=== PATIENT | female | born 1990 | race Hispanic/Latino ===

== ENCOUNTER 2018-01-09 12:59 | Emergency (ER) | payer SELFPAY ==
--- NOTE | 2018-01-09 13:43 | ER ---
Nurse's Notes [facility] Name: Jorge Stewart Age: 27 yrs Sex: Female : 1990 Arrival Date: 01/09/2018 Time: 13:01 Bed 24 Private MD: None, None Diagnosis: Candidiasis;Candidiasis of vulva and vagina Presentation: 01/09 13:23 Presenting complaint: Patient states: "vaginal rash" started Sunday. Pt has been sv taking monistat with no relief. Transition of care: patient was not received from another setting of care. Onset of symptoms was January 05, 2018. Care prior to arrival: None. 13:23 Method Of Arrival: Ambulatory sv 13:23 Acuity: LISA 4 sv 13:56 Risk Assessment: Do you want to hurt yourself or someone else? Patient reports no tl3 desire to harm self or others. Initial Sepsis Screen: Does the patient meet any 2 criteria? No. Patient's initial sepsis screen is negative. Does the patient have a suspected source of infection? No. Patient's initial sepsis screen is negative. 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 - Social history:: Smoking status: Patient/guardian denies using tobacco. - Ebola Screening: : No symptoms or risks identified at this time. - Family history:: not pertinent. - Hospitalizations: : No recent hospitalization is reported. - History obtained from: son. Patient is Pashto Speaking Only. Screenin:55 Abuse screen: Denies threats or abuse. Nutritional screening: No deficits noted. tl3 Tuberculosis screening: Fall Risk None identified. Assessment: 13:55 General: Appears in no apparent distress. comfortable, slender, well groomed, well tl3 developed, well nourished, Behavior is calm, cooperative, appropriate for age. Pain: Denies pain. Neuro: Level of Consciousness is awake, alert, obeys commands, Oriented to person, place, time, situation, Appropriate for age. Cardiovascular: Patient's skin is warm and dry. Respiratory: Airway is patent Respiratory effort is even, unlabored, Respiratory pattern is regular, symmetrical. GI: No signs and/or symptoms were reported involving the gastrointestinal system. : Reports discharge, vaginal itching. EENT: No signs and/or symptoms were reported regarding the EENT system. Derm: No signs and/or symptoms reported regarding the dermatologic system. Musculoskeletal: No signs and/or symptoms reported regarding the musculoskeletal system. Vital Signs: 13:24 BP 115 / 77; Pulse 82; Resp 18; Pulse Ox 100% ; Weight 61.69 kg; Height 5 ft. 4 in. sv (162.56 cm); Pain 0/10; 13:24 Body Mass Index 23.34 (61.69 kg, 162.56 cm) sv ED Course: 13:01 Patient arrived in ED. mr 13:02 None, None is Private Physician. mr 13:24 Triage completed. sv 13:25 Arm band placed on right wrist. sv 13:27 Ploy Kurtz FNP [facility]. kav 13:27 Gómez Cruz MD is Attending Physician. kav 13:51 Dali Garcia, DAMON is Primary Nurse. tl3 13:55 Patient has correct armband on for positive identification. tl3 13:55 No provider procedures requiring assistance completed. Patient did not have IV access tl3 during this emergency room visit. Administered Medications: No medications were administered Outcome: 13:42 Discharge ordered by . kav 13:55 Discharged to tl3 13:55 Condition: good 13:55 Discharge instructions given to patient, Instructed on discharge instructions, follow up and referral plans. medication usage, Demonstrated understanding of instructions, follow-up care, medications. 13:56 Patient left the ED. tl3 Signatures: Gertrude Thorpe, RN RN Poly Kurtz FNP JUSTICE COURT JUDGEMaine Estrada mr Dali Garcia, DAMON RN tl3
--- NOTE | 2018-01-09 13:43 | EDPHYS ---
Physician Documentation [facility] Name: Jorge Stewart Age: 27 yrs Sex: Female : 1990 Arrival Date: 01/09/2018 Time: 13:01 Bed 24 Private MD: None, None ED Physician Gómez Cruz HPI: 01/09 13:28 This 27 yrs old Female presents to ER via Ambulatory with complaints of kav Vaginal Itching. 13:32 The patient presents with perineal itching. kav 13:33 Onset: The symptoms/episode began/occurred acutely, 1 week(s) ago. Modifying factors: kav The symptoms are alleviated by over the counter medications, monistat ointment. Associated signs and symptoms: Pertinent positives: vaginal discharge. Severity of symptoms: At their worst the symptoms were mild, just prior to arrival. The patient is sexually active, reportedly has a single partner, does not use protection during intercourse. The patient's method of control includes nothing. The patient has not experienced similar symptoms in the past. The patient has not recently seen a physician. Patient c/o vaginal itching and burning with thick white discharge. 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 - Social history:: Smoking status: Patient/guardian denies using tobacco. - Ebola Screening: : No symptoms or risks identified at this time. - Family history:: not pertinent. - Hospitalizations: : No recent hospitalization is reported. - History obtained from: son. Patient is Qatari Speaking Only. ROS: 13:39 Constitutional: Negative for fever, chills, and weight loss, Eyes: Negative for injury, kav pain, redness, and discharge, ENT: Negative for injury, pain, and discharge, Neck: Negative for injury, pain, and swelling, Cardiovascular: Negative for chest pain, palpitations, and edema, Respiratory: Negative for shortness of breath, cough, wheezing, and pleuritic chest pain, Abdomen/GI: Negative for abdominal pain, nausea, vomiting, diarrhea, and constipation, Back: Negative for injury and pain, MS/Extremity: Negative for injury and deformity, Skin: Negative for injury, rash, and discoloration, Neuro: Negative for headache, weakness, numbness, tingling, and seizure, Psych: Negative for depression, anxiety, suicide ideation, homicidal ideation, and hallucinations, Allergy/Immunology: Negative for hives, rash, and allergies, Endocrine: Negative for neck swelling, polydipsia, polyuria, polyphagia, and marked weight changes, Hematologic/Lymphatic: Negative for swollen nodes, abnormal bleeding, and unusual bruising. 13:39 : Positive for vaginal discharge, vaginal itching, Negative for hematuria, burning with urination, difficulty urinating, foul smelling urine, vaginal bleeding. Exam: 13:39 Constitutional: This is a well developed, well nourished patient who is awake, alert, kav and in no acute distress. Head/Face: Normocephalic, atraumatic. Eyes: Pupils equal round and reactive to light, extra-ocular motions intact. Lids and lashes normal. Conjunctiva and sclera are non-icteric and not injected. Cornea within normal limits. Periorbital areas with no swelling, redness, or edema. ENT: Nares patent. No nasal discharge, no septal abnormalities noted. Tympanic membranes are normal and external auditory canals are clear. Oropharynx with no redness, swelling, or masses, exudates, or evidence of obstruction, uvula midline. Mucous membranes moist. Neck: Trachea midline, no thyromegaly or masses palpated, and no cervical lymphadenopathy. Supple, full range of motion without nuchal rigidity, or vertebral point tenderness. No Meningismus. Chest/axilla: Normal chest wall appearance and motion. Nontender with no deformity. No lesions are appreciated. Cardiovascular: Regular rate and rhythm with a normal S1 and S2. No gallops, murmurs, or rubs. Normal PMI, no JVD. No pulse deficits. Respiratory: Lungs have equal breath sounds bilaterally, clear to auscultation and percussion. No rales, rhonchi or wheezes noted. No increased work of breathing, no retractions or nasal flaring. Abdomen/GI: Soft, non-tender, with normal bowel sounds. No distension or tympany. No guarding or rebound. No evidence of tenderness throughout. Back: No spinal tenderness. No costovertebral tenderness. Full range of motion. Skin: Warm, dry with normal turgor. Normal color with no rashes, no lesions, and no evidence of cellulitis. MS/ Extremity: Pulses equal, no cyanosis. Neurovascular intact. Full, normal range of motion. Neuro: Awake and alert, GCS 15, oriented to person, place, time, and situation. Cranial nerves II-XII grossly intact. Motor strength 5/5 in all extremities. Sensory grossly intact. Cerebellar exam normal. Normal gait. Psych: Awake, alert, with orientation to person, place and time. Behavior, mood, and affect are within normal limits. 13:39 : CVA tenderness, is absent, Sexual behavior: the patient is sexually active, and reports a single partner, not applicable. Vital Signs: 13:24 BP 115 / 77; Pulse 82; Resp 18; Pulse Ox 100% ; Weight 61.69 kg; Height 5 ft. 4 in. sv (162.56 cm); Pain 0/10; 13:24 Body Mass Index 23.34 (61.69 kg, 162.56 cm) sv MDM: 13:27 Medical screening is not applicable. ka 13:39 Data reviewed: vital signs, nurses notes. kav Administered Medications: No medications were administered Disposition: 16:49 Co-signature as Attending Physician, Gómez Cruz MD. rn Disposition: 01/09/18 13:42 Discharged to Home. Impression: Candidiasis, Candidiasis of vulva and vagina. - Condition is Stable. - Discharge Instructions: Vaginal Yeast Infection, Adult. - Prescriptions for Diflucan 150 mg Oral Tablet - take 1 tablet by ORAL route every 3 days for 3 days; 2 tablet. - Medication Reconciliation Form, Thank You Letter form. - Follow up: Private Physician; When: 2 - 3 days; Reason: If symptoms return, Recheck today's complaints, Continuance of care, Re-evaluation by your physician. - Problem is new. - Symptoms are unchanged. Signatures: Gertrude Thorpe RN Poly Potter FNP FNP Gómez Sutton MD MD rn Lowrey, Tammy, RN RN tl3 Corrections: (The following items were deleted from the chart) 13:39 13:36 Constitutional: Negative for fever, chills, and weight loss, Eyes: Negative for kav injury, pain, redness, and discharge, ENT: Negative for injury, pain, and discharge, Neck: Negative for injury, pain, and swelling, Respiratory: Negative for shortness of breath, cough, wheezing, and pleuritic chest pain, Abdomen/GI: Negative for abdominal pain, nausea, vomiting, diarrhea, and constipation, Back: Negative for injury and pain, : Negative for injury, bleeding, discharge, and swelling, MS/Extremity: Negative for injury and deformity, Skin: Negative for injury, rash, and discoloration, Neuro: Negative for headache, weakness, numbness, tingling, and seizure, Psych: Negative for depression, anxiety, suicide ideation, homicidal ideation, and hallucinations, Allergy/Immunology: Negative for hives, rash, and allergies, Endocrine: Negative for neck swelling, polydipsia, polyuria, polyphagia, and marked weight changes, Hematologic/Lymphatic: Negative for swollen nodes, abnormal bleeding, and unusual bruising, ka 13:39 13:36 Cardiovascular: Positive for chest pain, of the left breast, [facility] 13:56 13:42 01/09/2018 13:42 Discharged to Home. Impression: Candidiasis; Candidiasis of tl3 vulva and vagina. Condition is Stable. Forms are Medication Reconciliation Form, Thank You Letter, Antibiotic Education, Prescription Opioid Use. Follow up: Private Physician; When: 2 - 3 days; Reason: If symptoms return, Recheck today's complaints, Continuance of care, Re-evaluation by your physician. Problem is new. Symptoms are unchanged. ka
[2018-01-09 14:13] VITALS: BP 115/77; O2SAT 100
== END 2018-01-09 13:56 | disposition home or self-care (01) ==
LOC: ER 12:59
DX: B37.3 Candidiasis of vulva and vagina (principal)
CPT/HCPCS: 99281

== ENCOUNTER 2018-07-18 23:45 | Emergency (ER) | payer SELFPAY ==
[2018-07-19 00:54] LABS: Urine Blood NEGATIVE (NEG); Urine Glucose NEGATIVE (NEG); Urine Protein NEGATIVE (NEG); Urine Specific Gravity 1.015 (1.005-1.030)
[2018-07-19 01:02] LABS: Urine Bacteria >50 /HPF (<20); Urine Culture Reflex Order NOT NEEDED; Urine RBC NONE SEEN /HPF (NONE SEEN)
--- NOTE | 2018-07-19 01:19 | ER ---
Nurse's Notes [facility] Name: Jorge Stewart Age: 28 yrs Sex: Female : 1990 Arrival Date: 07/18/2018 Time: 23:50 Bed 5 Private MD: Diagnosis: Dysuria;Urinary tract infection, site not specified Presentation: 07/19 00:03 Presenting complaint: Patient states: I am around 5 weeks and I think I have a ed1 UTI. Transition of care: patient was not received from another setting of care. Onset of symptoms was July 17, 2018. Risk Assessment: Do you want to hurt yourself or someone else? Patient reports no desire to harm self or others. Initial Sepsis Screen: Does the patient meet any 2 criteria? No. Patient's initial sepsis screen is negative. Does the patient have a suspected source of infection? No. Patient's initial sepsis screen is negative. Care prior to arrival: None. 00:03 Method Of Arrival: Ambulatory ed1 00:03 Acuity: LISA 4 ed1 Triage Assessment: 00:04 General: Appears in no apparent distress. Behavior is calm, cooperative. Pain: ed1 Complains of pain in low back area Pain does not radiate. Pain currently is 3 out of 10 on a pain scale. Quality of pain is described as aching, Pain began 1 day ago. EENT: No signs and/or symptoms were reported regarding the EENT system. Neuro: Level of Consciousness is awake, alert, obeys commands, Oriented to person, place, time, situation. Cardiovascular: Denies chest pain, Heart tones S1 S2 present. Respiratory: Airway is patent Respiratory effort is even, unlabored, Respiratory pattern is regular, symmetrical, Breath sounds are clear bilaterally. Denies cough, shortness of breath. GI: Abdomen is non-distended, Bowel sounds present X 4 quads. Abd is soft and non tender X 4 quads. Reports nausea, Patient currently denies diarrhea, vomiting. : Reports urgency, urinary frequency. Derm: Skin is intact, is healthy with good turgor, Skin is dry, Skin is normal, Skin temperature is warm. Musculoskeletal: Circulation, motion, and sensation intact. 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 - Social history:: Smoking status: Patient/guardian denies using tobacco. - Ebola Screening: : Patient negative for fever greater than or equal to 101.5 degrees Fahrenheit, and additional compatible Ebola Virus Disease symptoms Patient denies exposure to infectious person Patient denies travel to an Ebola-affected area in the 21 days before illness onset No symptoms or risks identified at this time. Screenin:07 Abuse screen: Denies threats or abuse. Denies injuries from another. Nutritional ed1 screening: No deficits noted. Tuberculosis screening: No symptoms or risk factors identified. Fall Risk None identified. Assessment: 00:07 Reassessment: See triage assessment. Pain: Complains of pain in low back area Pain ed1 currently is 3 out of 10 on a pain scale. Quality of pain is described as aching. 00:57 Reassessment: Patient appears in no apparent distress at this time. No changes from ed1 previously documented assessment. Patient and/or family updated on plan of care and expected duration. Pain level reassessed. Patient is alert, oriented x 3, equal unlabored respirations, skin warm/dry/pink. Vital Signs: 00:04 BP 133 / 81; Pulse 90; Resp 16; Temp 97.6(O); Pulse Ox 100% on R/A; Weight 61.69 kg; ed1 Height 5 ft. 5 in. (165.10 cm); Pain 3/10; 01:22 BP 124 / 76; Pulse 81; Resp 17; Temp 97.5(O); Pulse Ox 100% on R/A; Pain 2/10; ed1 00:04 Body Mass Index 22.63 (61.69 kg, 165.10 cm) ed1 ED Course: 07/18 23:50 Patient arrived in ED. es 23:58 Stephan Ram PA is PHCP. jr8 23:58 Jens Hendrickson MD is Attending Physician. jr8 07/19 00:02 Kristie Lucas, RN is Primary Nurse. ed1 00:03 Triage completed. ed1 00:04 Arm band placed on. ed1 00:07 Patient has correct armband on for positive identification. Bed in low position. Call ed1 light in reach. 00:25 Urine collected: clean catch specimen, clear. ed1 01:22 No provider procedures requiring assistance completed. Patient did not have IV access ed1 during this emergency room visit. Administered Medications: No medications were administered Outcome: 01:18 Discharge ordered by . susan 01:22 Discharged to home ambulatory. ed1 01:22 Condition: good 01:22 Discharge instructions given to patient, Instructed on discharge instructions, follow up and referral plans. medication usage, Demonstrated understanding of instructions, follow-up care, medications, Prescriptions given X 1. 01:23 Patient left the ED. ed1 Signatures: Shobha Leggett Erika, RN RN ed1 Stephan Ram PA PA jr8
--- NOTE | 2018-07-19 01:19 | EDPHYS ---
Physician Documentation [facility] Name: Jorge Stewart Age: 28 yrs Sex: Female : 1990 Arrival Date: 07/18/2018 Time: 23:50 Bed 5 Private MD: ED Physician Jens Hendrickson HPI: 07/19 00:20 This 28 yrs old Female presents to ER via Ambulatory with complaints of jr8 Urinary Frequency. 00:20 The patient presents with urinary symptoms, frequency, urgency. Onset: The jr8 symptoms/episode began/occurred acutely, today. Modifying factors: The symptoms are alleviated by nothing, the symptoms are aggravated by nothing. Associated signs and symptoms: Pertinent positives: low back pain. Severity of symptoms: At their worst the symptoms were mild, in the emergency department the symptoms are unchanged. The patient has not experienced similar symptoms in the past. The patient has not recently seen a physician. 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 - Social history:: Smoking status: Patient/guardian denies using tobacco. - Ebola Screening: : Patient negative for fever greater than or equal to 101.5 degrees Fahrenheit, and additional compatible Ebola Virus Disease symptoms Patient denies exposure to infectious person Patient denies travel to an Ebola-affected area in the 21 days before illness onset No symptoms or risks identified at this time. ROS: 00:20 Eyes: Negative for injury, pain, redness, and discharge, ENT: Negative for injury, jr8 pain, and discharge, Neck: Negative for injury, pain, and swelling, Cardiovascular: Negative for chest pain, palpitations, and edema, Respiratory: Negative for shortness of breath, cough, wheezing, and pleuritic chest pain, Abdomen/GI: Negative for abdominal pain, nausea, vomiting, diarrhea, and constipation, Back: Negative for injury and pain, MS/Extremity: Negative for injury and deformity, Skin: Negative for injury, rash, and discoloration, Neuro: Negative for headache, weakness, numbness, tingling, and seizure. 00:20 : Positive for urinary symptoms, Negative for vaginal bleeding, vaginal discharge, vaginal itching. Exam: 00:20 Eyes: Pupils equal round and reactive to light, extra-ocular motions intact. Lids and jr8 lashes normal. Conjunctiva and sclera are non-icteric and not injected. Cornea within normal limits. Periorbital areas with no swelling, redness, or edema. ENT: Nares patent. No nasal discharge, no septal abnormalities noted. Tympanic membranes are normal and external auditory canals are clear. Oropharynx with no redness, swelling, or masses, exudates, or evidence of obstruction, uvula midline. Mucous membranes moist. Neck: Trachea midline, no thyromegaly or masses palpated, and no cervical lymphadenopathy. Supple, full range of motion without nuchal rigidity, or vertebral point tenderness. No Meningismus. Cardiovascular: Regular rate and rhythm with a normal S1 and S2. No gallops, murmurs, or rubs. Normal PMI, no JVD. No pulse deficits. Respiratory: Lungs have equal breath sounds bilaterally, clear to auscultation and percussion. No rales, rhonchi or wheezes noted. No increased work of breathing, no retractions or nasal flaring. Back: No spinal tenderness. No costovertebral tenderness. Full range of motion. Skin: Warm, dry with normal turgor. Normal color with no rashes, no lesions, and no evidence of cellulitis. MS/ Extremity: Pulses equal, no cyanosis. Neurovascular intact. Full, normal range of motion. Neuro: Awake and alert, GCS 15, oriented to person, place, time, and situation. Cranial nerves II-XII grossly intact. Motor strength 5/5 in all extremities. Sensory grossly intact. Cerebellar exam normal. Normal gait. 00:20 Abdomen/GI: Inspection: abdomen appears normal, Bowel sounds: active, all quadrants, Palpation: soft, in all quadrants, mild abdominal tenderness, in the suprapubic area, mass, is not appreciated, rebound tenderness, is not appreciated, voluntary guarding, is not appreciated, involuntary guarding, is not appreciated, no appreciated organomegaly, Indicators: McBurney's point is not tender, Godfrey's sign is negative, Rovsing's sign is negative, Liver: tenderness, is not appreciated. Vital Signs: 00:04 BP 133 / 81; Pulse 90; Resp 16; Temp 97.6(O); Pulse Ox 100% on R/A; Weight 61.69 kg; ed1 Height 5 ft. 5 in. (165.10 cm); Pain 3/10; 01:22 BP 124 / 76; Pulse 81; Resp 17; Temp 97.5(O); Pulse Ox 100% on R/A; Pain 2/10; ed1 00:04 Body Mass Index 22.63 (61.69 kg, 165.10 cm) ed1 MDM: 07/18 23:59 Patient medically screened. [facility] 07/19 01:17 Data reviewed: vital signs, nurses notes, lab test result(s), and as a result, I will jr8 discharge patient. Data interpreted: Pulse oximetry: on room air is 100 %. Interpretation: normal. Counseling: I had a detailed discussion with the patient and/or guardian regarding: the historical points, exam findings, and any diagnostic results supporting the discharge/admit diagnosis, lab results, the need for outpatient follow up, a family practitioner, to return to the emergency department if symptoms worsen or persist or if there are any questions or concerns that arise at home. 07/19 00:14 Order name: Urine Dipstick--Ancillary (enter results); Complete Time: 00:57 ag4 07/19 00:14 Order name: Urine --Ancillary (enter results); Complete Time: 00:57 ag4 07/19 00:20 Order name: Urine Microscopic Only; Complete Time: 01:17 jr8 Administered Medications: No medications were administered Disposition: 06:53 Co-signature as Attending Physician, Jens Hendrickson MD I agree with the assessment and [facility] plan of care. Disposition: 07/19/18 01:18 Discharged to Home. Impression: Dysuria, Urinary tract infection, site not specified. - Condition is Stable. - Discharge Instructions: Dysuria, Urinary Tract Infection, Adult. - Prescriptions for Macrobid 100 mg Oral Capsule - take 1 capsule by ORAL route every 12 hours for 7 days; 14 capsule. - Medication Reconciliation Form, Thank You Letter, Antibiotic Education, Prescription Opioid Use form. - Follow up: Private Physician; When: 2 - 3 days; Reason: Recheck today's complaints, Continuance of care, Re-evaluation by your physician. - Problem is new. - Symptoms have improved. Signatures: Dispatcher [employer] EDMS Jens Hendrickson MD MD cha Riggs, Erika, RN RN ed1 Stephan Ram PA PA jr8 Corrections: (The following items were deleted from the chart) 01:23 01:18 07/19/2018 01:18 Discharged to Home. Impression: Dysuria; Urinary tract ed1 infection, site not specified. Condition is Stable. Forms are Medication Reconciliation Form, Thank You Letter, Antibiotic Education, Prescription Opioid Use. Follow up: Private Physician; When: 2 - 3 days; Reason: Recheck today's complaints, Continuance of care, Re-evaluation by your physician. Problem is new. Symptoms have improved. jr8
[2018-07-19 01:54] VITALS: O2SAT 100
[2018-07-19 01:56] VITALS: BP 124/76; TEMP 97.5
== END 2018-07-19 01:23 | disposition home or self-care (01) ==
LOC: ER 23:45
DX: N39.0 Urinary tract infection, site not specified (principal)
CPT/HCPCS: 81003; 81015; 81025; 99283

== ENCOUNTER 2018-07-23 08:23 | Emergency (ER) | payer OTHER, SELFPAY ==
[2018-07-23 09:51] LABS: Urine Blood NEGATIVE (NEG); Urine Glucose NEGATIVE (NEG); Urine Protein NEGATIVE (NEG)
[2018-07-23 09:58] LABS: Absolute Lymphocytes (CBC) 1.7 K/uL (0.7-4.9); Absolute Monocytes 0.4 K/uL (0.1-1.3); Absolute Neutrophil 2.7 K/uL (1.8-8.0); Basophils % 0.7 % (0-1.3); Eosinophils % 1.1 % (0-4.4); Hematocrit 39.4 % (36.0-45.0); MPV 10.5 fL (7.6-11.3); Monocytes % 7.8 % (3.3-12.3); RBC Red Blood Cell Count 4.32 M/uL (3.86-4.86)
--- NOTE | 2018-07-23 10:12 | RAD REPORT ---
EXAM DESCRIPTION: US - Transvaginal OB - 07/23/2018 9:37 am CLINICAL HISTORY: pelvic pain, vaginal bleeding COMPARISON: Transvaginal OB dated 01/03/2016 FINDINGS: A single gestational sac is seen within the uterus. The shape of the sac is within normal limits for gestational age. Within the sac is a round 3 mm yolk sac and possible small pole. No cardiac activity is seen however pole only measures 1 mm. The placenta is not yet developed due to early gestational age. The maternal adnexa and ovaries are within normal limits. Normal Doppler blood flow was demonstrated to both ovaries. IMPRESSION: Very early findings of an IUP are noted. Recommend followup ultrasound in 10-12 days.
[2018-07-23 10:43] LABS: BUN Blood Urea Nitrogen 7 mg/dL (7-18); Bicarbonate 26 mmol/L (21-32); Glucose Level 87 mg/dL (74-106); HCG, Quantitative 15775 mIU/mL (1-3); Potassium 3.7 mmol/L (3.5-5.1); Sodium Level 139 mmol/L (136-145)
--- NOTE | 2018-07-23 10:57 | ER ---
Nurse's Notes [facility] Name: Jorge Stewart Age: 28 yrs Sex: Female : 1990 Arrival Date: 07/23/2018 Time: 08:26 Bed 17 Private MD: None, None Diagnosis: Threatened Presentation: 07/23 08:26 Presenting complaint: Patient states: she is , unknown amt of weeks, c/o sv brownish vaginal discharge, left flank cramping, suprapubic pain x 1 day. Pt had a UTI 2 weeks ago and was on abx. Transition of care: patient was not received from another setting of care. Onset of symptoms was July 22, 2018. Risk Assessment: Do you want to hurt yourself or someone else? Patient reports no desire to harm self or others. Initial Sepsis Screen: Does the patient meet any 2 criteria? No. Patient's initial sepsis screen is negative. Does the patient have a suspected source of infection? No. Patient's initial sepsis screen is negative. Care prior to arrival: None. 08:26 Method Of Arrival: Ambulatory sv 08:26 Acuity: LISA 3 sv Triage Assessment: 08:30 General: Appears in no apparent distress. comfortable, Behavior is calm, cooperative, sv appropriate for age. Pain: Complains of pain in posterior aspect of left lateral abdomen Pain currently is 6 out of 10 on a pain scale. Quality of pain is described as crampy, Pain began 1 day ago. Is intermittent. Neuro: Level of Consciousness is awake, alert, obeys commands, Oriented to person, place, time, situation, Moves all extremities. Full function Gait is steady. Respiratory: Respiratory effort is even, unlabored, Respiratory pattern is regular, symmetrical. : Reports vaginal bleeding that is brown, spotty. Derm: Skin is pink, warm \T\ dry. 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 - Social history:: Smoking status: Patient/guardian denies using tobacco. - Ebola Screening: : No symptoms or risks identified at this time. Screenin:30 Abuse screen: Denies threats or abuse. Denies injuries from another. Nutritional sv screening: No deficits noted. Tuberculosis screening: No symptoms or risk factors identified. Fall Risk None identified. Assessment: 09:30 Reassessment: Patient appears in no apparent distress at this time. No changes from sv previously documented assessment. Patient and/or family updated on plan of care and expected duration. Pain level reassessed. Patient is alert, oriented x 3, equal unlabored respirations, skin warm/dry/pink. 11:11 Reassessment: Patient appears in no apparent distress at this time. No changes from sv previously documented assessment. Patient and/or family updated on plan of care and expected duration. Pain level reassessed. Patient is alert, oriented x 3, equal unlabored respirations, skin warm/dry/pink. Vital Signs: 08:26 BP 108 / 80; Pulse 94; Resp 18; Temp 97.5; Pulse Ox 100% ; Weight 61.69 kg; Height 5 sv ft. 5 in. (165.10 cm); Pain 6/10; 10:28 Pulse 88; Resp 16; Pulse Ox 100% on R/A; sv 08:26 Body Mass Index 22.63 (61.69 kg, 165.10 cm) sv ED Course: 08:26 Patient arrived in ED. dl4 08:26 Arm band placed on Patient placed in an exam room, on a stretcher. sv 08:27 None, None is Private Physician. dl4 08:30 Patient has correct armband on for positive identification. Bed in low position. Door sv closed. 08:36 Dell Cuellar PA is PHCP. [facility] 08:36 Gómez Cruz MD is Attending Physician. jm 08:39 Gertrude Thorpe RN is Primary Nurse. sv 08:41 Triage completed. sv 09:00 Urine --Ancillary (enter results) Sent. sv 09:00 Urine Dipstick--Ancillary (enter results) Sent. sv 09:14 Nurse Practitioner and/or Physician Nuclear Equipment Design Engineer to see patient. sv 09:25 Initial lab(s) drawn, by ar, sent to lab. Inserted saline lock: 22 gauge in right sv antecubital area, using aseptic technique. ,using aseptic technique. diffusics Blood collected. Flushed right antecubital with 5 ml normal saline. 09:40 Transvaginal OB In Process Unspecified. EDMS 09:45 Ultrasound completed. Patient tolerated well. Patient moved back from ultrasound. aa4 11:11 No provider procedures requiring assistance completed. IV discontinued, intact, sv bleeding controlled, No redness/swelling at site. Pressure dressing applied. Administered Medications: No medications were administered Outcome: 10:55 Discharge ordered by . lionel 11:11 Discharged to home ambulatory. sv 11:11 Condition: stable 11:11 Discharge instructions given to patient, Instructed on discharge instructions, follow up and referral plans. pelvic rest Demonstrated understanding of instructions, follow-up care. 11:11 Patient left the ED. sv Signatures: Dispatcher [employer] Gertrude Drummond RN RN Dell Castillo PA PA jmm Frazier, Amanda aa4 Brian Pham4
--- NOTE | 2018-07-23 10:58 | EDPHYS ---
Physician Documentation [facility] Name: Jorge Stewart Age: 28 yrs Sex: Female : 1990 Arrival Date: 07/23/2018 Time: 08:26 Bed 17 Private MD: None, None ED Physician Gómez Cruz HPI: 07/23 09:20 This 28 yrs old Female presents to ER via Ambulatory with complaints of jmm Vaginal Bleeding - 8 Weeks . 09:20 The patient presents with vaginal discharge, that is a small amount of brown discharge. jmm Onset: The symptoms/episode began/occurred gradually, today. Associated signs and symptoms: Pertinent negatives: fever. This is a 28 year old female with no chronic medical conditions that presents to the ED with pelvic cramping and brown discharge beginning today. . 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 - Social history:: Smoking status: Patient/guardian denies using tobacco. - Ebola Screening: : No symptoms or risks identified at this time. ROS: 09:20 Constitutional: Negative for fever, chills, and weight loss, Cardiovascular: Negative jmm for chest pain, palpitations, and edema, Respiratory: Negative for shortness of breath, cough, wheezing, and pleuritic chest pain. 09:20 : Positive for pelvic pain, vaginal discharge. 09:20 All other systems are negative. Exam: 09:20 Constitutional: This is a well developed, well nourished patient who is awake, alert, jmm and in no acute distress. Head/Face: atraumatic. Eyes: EOMI, no conjunctival erythema appreciated ENT: Moist Mucus Membranes Neck: Trachea midline, Supple Chest/axilla: Normal chest wall appearance and motion. Cardiovascular: Regular rate and rhythm. No edema appreciated Respiratory: Normal respirations, no respiratory distress appreciated Abdomen/GI: Non distended, soft Back: Normal ROM Skin: General appearance color normal MS/ Extremity: Moves all extremities, no obvious deformities appreciated, no edema noted to the lower extremities Neuro: Awake and alert, normal gait Psych: Behavior is normal, Mood is normal, Patient is cooperative and pleasant 09:20 Abdomen/GI: Inspection: abdomen appears normal, Palpation: abdomen is soft and non-tender, in all quadrants. Vital Signs: 08:26 BP 108 / 80; Pulse 94; Resp 18; Temp 97.5; Pulse Ox 100% ; Weight 61.69 kg; Height 5 sv ft. 5 in. (165.10 cm); Pain 6/10; 10:28 Pulse 88; Resp 16; Pulse Ox 100% on R/A; sv 08:26 Body Mass Index 22.63 (61.69 kg, 165.10 cm) sv MDM: 09:17 Patient medically screened. [facility] 10:53 Data reviewed: vital signs, nurses notes. Counseling: I had a detailed discussion with lionel the patient and/or guardian regarding: the historical points, exam findings, and any diagnostic results supporting the discharge/admit diagnosis, lab results, radiology results, to return to the emergency department if symptoms worsen or persist or if there are any questions or concerns that arise at home. ED course: Patient is alert and non toxic in appearance in the ED. IUD noted on US. Patient will see OB on Sunday for reevaluation. Patient advised to return to the ED if she develops, weakness or increased pain. Patient understood and agrees with the plan of care. . 07/23 08:53 Order name: Urine Dipstick--Ancillary (enter results); Complete Time: 10: 07/23 08:53 Order name: Urine --Ancillary (enter results); Complete Time: 10: 07/23 09:18 Order name: Quantitative Hcg; Complete Time: 10:53 [facility] 07/23 09:18 Order name: Abo/rh Typing; Complete Time: 10:53 [facility] 07/23 09:18 Order name: Basic Metabolic Panel; Complete Time: 10:53 [facility] 07/23 09:18 Order name: CBC with Diff; Complete Time: 10: [facility] 07/23 09:18 Order name: IV Saline Lock; Complete Time: :26 [facility] 07/23 09:18 Order name: Labs collected and sent; Complete Time: :26 [facility] 07/23 09:18 Order name: NPO; Complete Time: 09:20 [facility] 07/23 09:18 Order name: Urine Dipstick-Ancillary (obtain specimen); Complete Time: 09:20 [facility] 07/23 09:38 Order name: Transvaginal OB; Complete Time: 10:26 EDKY Administered Medications: No medications were administered Disposition: 10:53 Chart complete. [facility] 17:18 Co-signature as Attending Physician, Gómez Cruz MD. rn Disposition: 07/23/18 10:55 Discharged to Home. Impression: Threatened . - Condition is Stable. - Discharge Instructions: Threatened Miscarriage, Pelvic Rest. - Medication Reconciliation Form, Thank You Letter, Antibiotic Education, Prescription Opioid Use form. - Follow up: Private Physician; When: 2 - 3 days; Reason: Recheck today's complaints, Continuance of care, Re-evaluation by your physician. Signatures: Dispatcher [employer] [facility] Gertrude Thorpe, RN RN Dell Castillo PA PA jmm Nieto, Roman, MD MD cardiac cath rn: (The following items were deleted from the chart) 09:37 09:19 1st Trimest Single 1st Fetus+US.RAD.BRZ ordered. [facility] 11:11 10:55 07/23/2018 10:55 Discharged to Home. Impression: Threatened . Condition sv is Stable. Forms are Medication Reconciliation Form, Thank You Letter, Antibiotic Education, Prescription Opioid Use. Follow up: Private Physician; When: 2 - 3 days; Reason: Recheck today's complaints, Continuance of care, Re-evaluation by your physician. [facility]
[2018-07-23 11:22] VITALS: O2SAT 100
[2018-07-23 11:24] VITALS: BP 108/80; TEMP 97.5
== END 2018-07-23 11:11 | disposition home or self-care (01) ==
LOC: ER 08:23
DX: O20.0 Threatened abortion (principal); O24.419 Gestational diabetes mellitus in pregnancy, unspecified control; Z3A.08 8 weeks gestation of pregnancy
CPT/HCPCS: 36415; 76817; 80048; 81003; 81025; 84702; 85025; 86900; 86901; 99284

== ENCOUNTER 2018-07-30 08:25 | Emergency (ER) | payer OTHER, SELFPAY ==
[2018-07-30 09:26] LABS: Urine Bacteria LOADED /HPF (<20); Urine Culture Reflex Order NOT NEEDED; Urine Mucus 2+ /HPF (NONE SEEN); Urine RBC <5 /HPF (NONE SEEN)
--- NOTE | 2018-07-30 10:12 | EDPHYS ---
Physician Documentation [facility] Name: Jorge Stewart Age: 28 yrs Sex: Female : 1990 Arrival Date: 07/30/2018 Time: 08:28 Bed 17 Private MD: None, None ED Physician Gómez Cruz HPI: 07/30 08:56 This 28 yrs old Female presents to ER via Ambulatory with complaints of 7 wks rn , Urinary Problem, Back Pain. 08:56 The patient presents with pain that is acute, with no known mechanism of injury. The rn symptoms are located in the low back. Onset: The symptoms/episode began/occurred 1.5 week(s) ago. The pain does not radiate. Associated signs and symptoms: Pertinent positives: dysuria. Modifying factors: The patient symptoms are alleviated by nothing, the patient symptoms are aggravated by urinating. Severity of symptoms: At their worst the symptoms were mild, in the emergency department the symptoms are unchanged. The patient has experienced a previous episode. The patient has been recently seen by a physician:. Reports 6 weeks , has confirmed IUP at OB clinic, with FHT detected this past week, reports treated for UTI with macrobid but still has dysuria and low back pain. No fever/abd pain/leakage of fluid/vaginal bleeding. . 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 - Social history:: Smoking status: . - Ebola Screening: : No symptoms or risks identified at this time. - Family history:: not pertinent. - Hospitalizations: : No recent hospitalization is reported. ROS: 08:56 Constitutional: Negative for fever, chills, and weight loss, Eyes: Negative for injury, rn pain, redness, and discharge, Cardiovascular: Negative for chest pain, palpitations, and edema, Respiratory: Negative for shortness of breath, cough, wheezing, and pleuritic chest pain, Abdomen/GI: Negative for abdominal pain, nausea, vomiting, diarrhea, and constipation, Back: + low back pain MS/Extremity: Negative for injury and deformity, Skin: Negative for injury, rash, and discoloration, Neuro: Negative for headache, weakness, numbness, tingling, and seizure. Exam: 08:56 Constitutional: This is a well developed, well nourished patient who is awake, alert, rn and in no acute distress. Head/Face: Normocephalic, atraumatic. Eyes: Pupils equal round and reactive to light, extra-ocular motions intact. Lids and lashes normal. Conjunctiva and sclera are non-icteric and not injected. Cornea within normal limits. Periorbital areas with no swelling, redness, or edema. Abdomen/GI: Soft, non-tender, with normal bowel sounds. No distension or tympany. No guarding or rebound. No evidence of tenderness throughout. Back: No spinal tenderness. No costovertebral tenderness. Full range of motion. MS/ Extremity: Pulses equal, no cyanosis. Neurovascular intact. Full, normal range of motion. Equal circumference. Neuro: Awake and alert, GCS 15, oriented to person, place, time, and situation. Cranial nerves II-XII grossly intact. Motor strength 5/5 in all extremities. Sensory grossly intact. Cerebellar exam normal. Normal gait. Vital Signs: 08:40 BP 114 / 68; Pulse 102; Resp 16; Temp 98.7; Pulse Ox 100% on R/A; Pain 6/10; hb 10:00 BP 112 / 64; Pulse 94; Resp 18; Temp 97.9; Pulse Ox 99% on R/A; ph MDM: 08:47 Patient medically screened. rn 10:09 Differential diagnosis: Urinary tract infection. Data reviewed: vital signs, nurses rn notes, lab test result(s), and as a result, I will discharge patient. Counseling: I had a detailed discussion with the patient and/or guardian regarding: the historical points, exam findings, and any diagnostic results supporting the discharge/admit diagnosis, lab results, the need for outpatient follow up, to return to the emergency department if symptoms worsen or persist or if there are any questions or concerns that arise at home. Special discussion: I discussed with the patient/guardian in detail that at this point there is no indication for admission to the hospital. It is understood, however, that if the symptoms persist or worsen the patient needs to return immediately for re-evaluation. 07/30 08:53 Order name: Urine Microscopic Only; Complete Time: 10:08 rn 07/30 08:53 Order name: Urine Culture rn 07/30 08:53 Order name: Urine Dipstick-Ancillary (obtain specimen); Complete Time: 09:32 rn 07/30 09:14 Order name: Urine Dipstick--Ancillary (enter results) eb 07/30 09:14 Order name: Urine --Ancillary (enter results) eb Administered Medications: No medications were administered Disposition: 07/30/18 10:11 Discharged to Home. Impression: Urinary tract infection, site not specified. - Condition is Stable. - Discharge Instructions: and Urinary Tract Infection. - Prescriptions for Keflex 500 mg Oral Capsule - take 1 capsule by ORAL route every 12 hours for 10 days; 20 capsule. - Medication Reconciliation Form, Thank You Letter, Antibiotic Education, Prescription Opioid Use form. - Follow up: Private Physician; When: As needed; Reason: Recheck today's complaints, Re-evaluation by your physician. - Problem is new. - Symptoms have improved. Signatures: Dispatcher [employer] EDMS Gómez Cruz MD MD rn Hall, Patricia, RN RN Nancy Billy RN RN Corrections: (The following items were deleted from the chart) 10:30 10:11 07/30/2018 10:11 Discharged to Home. Impression: Urinary tract infection, site ph not specified. Condition is Stable. Forms are Medication Reconciliation Form, Thank You Letter, Antibiotic Education, Prescription Opioid Use. Follow up: Private Physician; When: As needed; Reason: Recheck today's complaints, Re-evaluation by your physician. Problem is new. Symptoms have improved. rn
--- NOTE | 2018-07-30 10:12 | ER ---
Nurse's Notes [facility] Name: Jorge Stewart Age: 28 yrs Sex: Female : 1990 Arrival Date: 07/30/2018 Time: 08:28 Bed 17 Private MD: None, None Diagnosis: Urinary tract infection, site not specified Presentation: 07/30 08:38 Presenting complaint: Left sided low back pain, burning with urination, and foul hb smelling urine x 3 days. Completed Macrobid for UTI on Sunday. Pt is 7 weeks , LMP 06/14/18. Transition of care: patient was not received from another setting of care. Onset of symptoms was July 27, 2018. Risk Assessment: Do you want to hurt yourself or someone else? Patient reports no desire to harm self or others. Initial Sepsis Screen: Does the patient meet any 2 criteria? No. Patient's initial sepsis screen is negative. Does the patient have a suspected source of infection? No. Patient's initial sepsis screen is negative. Care prior to arrival: None. 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 - Social history:: Smoking status: . - Ebola Screening: : No symptoms or risks identified at this time. - Family history:: not pertinent. - Hospitalizations: : No recent hospitalization is reported. Screenin:32 Abuse screen: Denies threats or abuse. Denies injuries from another. Nutritional ph screening: No deficits noted. Tuberculosis screening: No symptoms or risk factors identified. Fall Risk None identified. Assessment: 09:00 General: Appears in no apparent distress. comfortable, slender, well groomed, Behavior ph is calm, cooperative, appropriate for age, Denies fever. Pain: Complains of pain in left low back Pain does not radiate. Neuro: Level of Consciousness is awake, alert, obeys commands, Oriented to person, place, time, situation. Cardiovascular: Capillary refill < 3 seconds in bilateral fingers Patient's skin is warm and dry. Respiratory: Airway is patent Respiratory effort is even, unlabored, Respiratory pattern is regular, symmetrical. GI: Reports nausea, vomiting, pt states, " I have been nauseous since I've been . Patient currently denies abdominal pain, diarrhea. : Reports burning with urination, urgency, urinary frequency. Derm: Skin is intact, is healthy with good turgor, Skin is pink, warm \\T\\ dry. Musculoskeletal: Circulation, motion, and sensation intact. Range of motion: intact in all extremities. 10:00 Reassessment: Patient appears in no apparent distress at this time. Patient and/or ph family updated on plan of care and expected duration. Pain level reassessed. Patient is alert, oriented x 3, equal unlabored respirations, skin warm/dry/pink. Vital Signs: 08:40 BP 114 / 68; Pulse 102; Resp 16; Temp 98.7; Pulse Ox 100% on R/A; Pain 6/10; hb 10:00 BP 112 / 64; Pulse 94; Resp 18; Temp 97.9; Pulse Ox 99% on R/A; ph ED Course: 08:28 Patient arrived in ED. mr 08:28 None, None is Private Physician. mr 08:40 Triage completed. hb 08:40 Arm band placed on. hb 08:47 Ira Melgar, DAMON is Primary Nurse. ph 08:47 Gómez Cruz MD is Attending Physician. rn 09:33 Patient has correct armband on for positive identification. Bed in low position. Call ph light in reach. Side rails up X 1. Pulse ox on. NIBP on. Door closed. Noise minimized. Warm blanket given. 10:30 No provider procedures requiring assistance completed. Patient did not have IV access ph during this emergency room visit. Administered Medications: No medications were administered Outcome: 10:11 Discharge ordered by . rn 10:30 Patient left the ED. ph 10:30 Discharged to home ambulatory. ph 10:30 Condition: good 10:30 Discharge instructions given to patient, Instructed on discharge instructions, follow up and referral plans. medication usage, Demonstrated understanding of instructions, follow-up care, medications, Prescriptions given X 1. Addendum: 08/02/2018 07:51 Addendum: Culture Results: Positive urine culture. Phone call Attempt #1 at [phone], a a5 unable to leave voicemail due to voicemail being full. 12:40 Addendum: Culture Results: Phone call Attempt #2 at [phone]. a a5 Signatures: Terese Benton, MD HEIDI Magaña rn Esteban, Trini, RN RN aa5 Ira Melgar RN RN Nancy Moyer RN RN hb Corrections: (The following items were deleted from the chart) 07/30 08:41 08:38 Presenting complaint: Left sided low back pain, burning with urination, and foul hb smelling urine x 3 days. Completed Macrobid for UTI on Sunday. hb
[2018-07-30 11:46] VITALS: BP 114/68; TEMP 98.7; O2SAT 100
[2018-07-30 14:14] LABS: Urine Blood NEGATIVE (NEG); Urine Glucose NEGATIVE (NEG); Urine Protein TRACE (NEG)
== END 2018-07-30 10:30 | disposition home or self-care (01) ==
LOC: ER 08:25
DX: O23.41 Unspecified infection of urinary tract in pregnancy, first trimester (principal); Z3A.01 Less than 8 weeks gestation of pregnancy; O24.419 Gestational diabetes mellitus in pregnancy, unspecified control
CPT/HCPCS: 81003; 81015; 81025; 87077; 87086; 87088; 87186; 99283

== ENCOUNTER 2024-02-21 20:16 | Emergency (ER) | payer OTHER ==
--- OUTSIDE RECORDS SUMMARY | 2024-02-21 20:22 | XMS REPORT | Continuity of Care Document ---
Author Name Unknown Address [address] [place] [address] [facility] thconnect Address [address] [place] [address] Care Team Providers Care Seconds Inspector Name Role Phone REBECCA MCCLAIN Primary Care Physician Unav ailREBECCA Early Attending Clinician Unavail able Bobbi Arora Attending Clinician Ting Humphreys CNM Attending Clinician [phone] TING THOMAS Attending Clinician Unavailomkar Mcclain Rebecca CARDOSO Attending Clinician + Doctor Unassigned, [place] Attending Clinician U navailable Provider, [facility] Temp Attending Clinician Hannah Bela Montelongo LMSW Attending Clinician Unava ilBrandon Rose Admitting Clinician Unavailable TING THOMAS Admitting Clinician Orin bird Payers Payer Name Policy Type Policy Number Effective Date Expirati on Date Source [facility] [id number] 2023 00:00:00 [place] [id number] 2023 00:00:00 Problems Condition Name Condition Details Condition Category Status Onset Date Resolution Date Last Treatment Date Treating Clinician Comments Source Previous delivery affecting , antepartum Previous delivery affecting , antepartum Disease Active 11-01 00:00: 00 [facility] related nausea, antepartum related nausea, antepartum Disease Active 11-01 00:00: 00 [facility] Prior with demise Prior with demise Disease Active 11-01 00:00: 00 Overview: Formattin g of this note might be different from the original. 2016 twins at 18 weeks [facility] Other general counseling and advice for contracept marlene management Other general counseling and advice for contracept marlene management Disease Active 09-06 00:00: 00 [facility] Over weight Over weight Disease Active 09-06 00:00: 00 [facility] Rubella screening Rubella Screening Problem Active 07-31 00:00: 00 [facility] Recurrent miscarriag e Recurrent Miscarriag e Problem Active 07-26 00:00: 00 [facility] History of sexually transmitte d disease History of Sexually Transmitte d Disease Problem Active 07-26 00:00: 00 [facility] section Section Problem Active 08 00:00: 00 [facility] Allergies, Adverse Reactions, Alerts Allergy Name Allergy Type Status Severity Reaction(s) Onset Date Inactive Date Treating Clinician Comments Source No Known Allergie s DA Active U 03-13 00:00: 00 [facility] No Known Allergie s DA Active U 03-13 00:00: 00 [facility] No Known Allergie s DA Active U 09-12 00:00: 00 [facility] No Known Allergie s DA Active U 01-20 00:00: 00 [facility] NO KNOWN ALLERGIE S Drug Class Active [facility] Social History Social Habit Start Date Stop Date Quantity Comments Source ASSERTION 2023-10-01 00:00:00 [facility] Gender identity [facility] History SDOH Alcohol Frequency [facility] History SDOH Alcohol Std Drinks [facility] History SDOH Alcohol Binge [facility] Alcoholic beverage intake 2023-11-02 00:00:00 2023-11-02 00:00:00 Current drinker of alcohol (finding) [facility] Exposure to SARS-CoV-2 (event) 2022-10-22 00:00:00 2022-11-01 09:21:00 Not sure [facility] Alcohol intake 2022-11-01 00:00:00 2022-11-01 00:00:00 Current drinker of alcohol (finding) [facility] History of Social function 2022-11-01 00:00:00 2022-11-01 00:00:00 [facility] Tobacco use and exposure 2022-05-31 00:00:00 2022-05-31 00:00:00 Smokeless tobacco non-user [facility] Alcohol Comment 2020-09-06 00:00:00 2020-09-06 00:00:00 socially [facility] Sex assigned at 1990 00:00:00 1990 00:00:00 [facility] Smoking Status Start Date Stop Date Source Never smoked tobacco [facility] Medications Ordered Medication Name Filled Medication Name Start Date Stop Date Current Medication? Ordering Clinician Indication Dosage Frequency Signature (SIG) Comments Components Source Nitrofurant oin&Nit. Macrocryst (MACROBID) 100 mg capsule 01-17 00:00: 00 01-28 04:59 :00 No [id number] 100mg Take 1 capsule by mouth in the morning and 1 capsule in the evening. Do all this for 10 days. [facility] phentermine HCl (PHENTERMIN E ORAL) 11-01 09:29: 05 Yes Take by mouth. [facility] norethindro ne-ethinyl estradiol (,) 1-20 mg-mcg per tablet 11-01 00:00: 00 11-01 00:00 :00 No [id number] 1{tbl} Take 1 tablet by mouth in the morning. [facility] Nitrofurant oin&Nit. Macrocryst (MACROBID) 100 mg capsule 11-11 00:00: 00 05-25 00:00 :00 No [id number] 100mg Take 1 capsule by mouth 2 (two) times daily. [facility] phentermine HCl (PHENTERMIN E ORAL) 10-04 15:01: 58 11-01 00:00 :00 No Take by mouth. [facility] norethindro ne-ethinyl estradiol (,) 1-20 mg-mcg per tablet 10-04 00:00: 00 11-01 00:00 :00 No [id number] 1{tbl} Take 1 tablet by mouth daily. [facility] No [facility] Stool Softener 100 mg capsule Stool Softener 100 mg capsule No Stool Softener 100 mg capsule [facility] Immunizations Ordered Immunization Name Filled Immunization Name Date Status Comments Source [facility] 2022-11-01 00:00:00 [facility]pleted [facility] 2022-11-01 00:00:00 Completed [facility] 2022-11-01 00:00:00 Completed [facility] 2022-11-01 00:00:00 Completed [facility] 2022-11-01 00:00:00 Completed [facility] 2022-11-01 00:00:00 Completed [facility] 2022-11-01 00:00:00 Completed [facility] 2021-10-04 00:00:00 Completed [facility] 2021-10-04 00:00:00 Completed [facility] 2021-10-04 00:00:00 Completed [facility] HPV9 2021-10-04 00:00:00 Completed [facility] HPV9 2021-10-04 00:00:00 Completed [facility] HPV9 2021-10-04 00:00:00 Completed [facility] HPV9 2021-10-04 00:00:00 Completed [facility] HPV9 2021-10-04 00:00:00 Completed [facility] HPV9 2021-10-04 00:00:00 Completed [facility] HPV9 2021-10-04 00:00:00 Completed [facility] HPV9 2021-10-04 00:00:00 Completed [facility] HPV9 2021-10-04 00:00:00 Completed [facility] HPV9 2021-10-04 00:00:00 Completed [facility] HPV9 2021-10-04 00:00:00 Completed [facility] HPV9 2021-10-04 00:00:00 Completed [facility] HPV9 2021-10-04 00:00:00 Completed [facility] Influenza Virus Vaccine Quad .5 mL IM 6+ MO 2020-09-06 00:00:00 Completed [facility] Influenza Virus Vaccine Quad .5 mL IM 6+ MO 2020-09-06 00:00:00 Completed [facility] Influenza Virus Vaccine Quad .5 mL IM 6+ MO 2020-09-06 00:00:00 Completed [facility] Influenza Virus Vaccine Quad .5 mL IM 6+ MO 2020-09-06 00:00:00 Completed [facility] Influenza Virus Vaccine Quad .5 mL IM 6+ MO 2020-09-06 00:00:00 Completed [facility] Influenza Virus Vaccine Quad .5 mL IM 6+ MO 2020-09-06 00:00:00 Completed [facility] Influenza Virus Vaccine Quad .5 mL IM 6+ MO 2020-09-06 00:00:00 Completed [facility] Influenza Virus Vaccine Quad .5 mL IM 6+ MO 2020-09-06 00:00:00 Completed [facility] Influenza Virus Vaccine Quad .5 mL IM 6+ MO 2020-09-06 00:00:00 Completed [facility] Influenza Virus Vaccine Quad .5 mL IM 6+ MO 2020-09-06 00:00:00 Completed [facility] Influenza Virus Vaccine Quad .5 mL IM 6+ MO 2020-09-06 00:00:00 Completed [facility] Influenza Virus Vaccine Quad .5 mL IM 6+ MO 2020-09-06 00:00:00 Completed [facility] Influenza Virus Vaccine Quad .5 mL IM 6+ MO 2020-09-06 00:00:00 Completed [facility] Influenza Virus Vaccine Quad .5 mL IM 6+ MO 2020-09-06 00:00:00 Completed [facility] Influenza Virus Vaccine Quad .5 mL IM 6+ MO 2020-09-06 00:00:00 Completed [facility] Influenza Virus Vaccine Quad .5 mL IM 6+ MO 2020-09-06 00:00:00 Completed [facility] TDAP 2019-01-02 00:00:00 Completed [facility] TDAP 2019-01-02 00:00:00 Completed [facility] TDAP 2019-01-02 00:00:00 Completed [facility] TDAP 2019-01-02 00:00:00 Completed [facility] TDAP 2019-01-02 00:00:00 Completed [facility] TDAP 2019-01-02 00:00:00 Completed [facility] TDAP 2019-01-02 00:00:00 Completed [facility] TDAP 2019-01-02 00:00:00 Completed [facility] TDAP 2019-01-02 00:00:00 Completed [facility] TDAP 2019-01-02 00:00:00 Completed [facility] TDAP 2019-01-02 00:00:00 Completed [facility] TDAP 2019-01-02 00:00:00 Completed [facility] TDAP 2019-01-02 00:00:00 Completed [facility] TDAP 2019-01-02 00:00:00 Completed [facility] TDAP 2019-01-02 00:00:00 Completed [facility] TDAP 2019-01-02 00:00:00 Completed [facility] TDAP 2018-11-16 00:00:00 Completed [facility] TDAP 2018-11-16 00:00:00 Completed [facility] TDAP 2018-11-16 00:00:00 Completed [facility] TDAP 2018-11-16 00:00:00 Completed [facility] TDAP 2018-11-16 00:00:00 Completed [facility] TDAP 2018-11-16 00:00:00 Completed [facility] TDAP 2018-11-16 00:00:00 Completed [facility] TDAP 2018-11-16 00:00:00 Completed [facility] TDAP 2018-11-16 00:00:00 Completed [facility] TDAP 2018-11-16 00:00:00 Completed [facility] TDAP 2018-11-16 00:00:00 Completed [facility] TDAP 2018-11-16 00:00:00 Completed [facility] TDAP 2018-11-16 00:00:00 Completed [facility] TDAP 2018-11-16 00:00:00 Completed [facility] TDAP 2018-11-16 00:00:00 Completed [facility] TDAP 2018-11-16 00:00:00 Completed [facility] Influenza Virus Vaccine Quad IM Multi-dose 6+ MO 2018-07-26 00:00:00 Completed [facility] Influenza Virus Vaccine Quad IM Multi-dose 6+ MO 2018-07-26 00:00:00 Completed [facility] Influenza Virus Vaccine Quad IM Multi-dose 6+ MO 2018-07-26 00:00:00 Completed [facility] Influenza Virus Vaccine Quad IM Multi-dose 6+ MO 2018-07-26 00:00:00 Completed [facility] Influenza Virus Vaccine Quad IM Multi-dose 6+ MO 2018-07-26 00:00:00 Completed [facility] Influenza Virus Vaccine Quad IM Multi-dose 6+ MO 2018-07-26 00:00:00 Completed [facility] Influenza Virus Vaccine Quad IM Multi-dose 6+ MO 2018-07-26 00:00:00 Completed [facility] Influenza Virus Vaccine Quad IM Multi-dose 6+ MO 2018-07-26 00:00:00 Completed [facility] Influenza Virus Vaccine Quad IM Multi-dose 6+ MO 2018-07-26 00:00:00 Completed [facility] Influenza Virus Vaccine Quad IM Multi-dose 6+ MO 2018-07-26 00:00:00 Completed [facility] Influenza Virus Vaccine Quad IM Multi-dose 6+ MO 2018-07-26 00:00:00 Completed [facility] Influenza Virus Vaccine Quad IM Multi-dose 6+ MO 2018-07-26 00:00:00 Completed [facility] Influenza Virus Vaccine Quad IM Multi-dose 6+ MO 2018-07-26 00:00:00 Completed [facility] Influenza Virus Vaccine Quad IM Multi-dose 6+ MO 2018-07-26 00:00:00 Completed [facility] Influenza Virus Vaccine Quad IM Multi-dose 6+ MO 2018-07-26 00:00:00 Completed [facility] Influenza Virus Vaccine Quad IM Multi-dose 6+ MO 2018-07-26 00:00:00 Completed [facility] TDAP Unknown Completed [facility] Influenza Virus Vaccine Quad .5 mL IM 6+ MO (FLUZONE/FLULAVAL/F LUARIX) Unknown Completed [facility] Influenza Virus Vaccine Quad IM Multi-dose 6+ MO Unknown Completed [facility] TDAP Unknown Completed [facility] HPV9 Unknown Completed [facility] HPV9 Unknown Completed [facility] influenza, injectable, quadrivalent influenza, injectable, quadrivalent Unknown Completed [facility] Tdap Tdap Unknown Completed [facility] ical Vital Signs Vital Name Observation Time Observation Value Comments S ource BP Diastolic 2024-02-08 00:00:00 72 mm[Hg] [facility] Height 2024-02-08 00:00:00 65 [in_i] [facility] BP Systolic 2024-02-08 00:00:00 122 mm[Hg] [facility] Body Weight 2024-02-08 00:00:00 178 [lb_av] [facility] BMI (Body Mass Index) 2024-02-08 00:00:00 29.6 kg/m2 [facility] BP Diastolic 2024-01-11 00:00:00 74 mm[Hg] [facility] BMI (Body Mass Index) 2024-01-11 00:00:00 28.8 kg/m2 [facility] Height 2024-01-11 00:00:00 65 [in_i] [facility] BP Systolic 2024-01-11 00:00:00 126 mm[Hg] [facility] Body Weight 2024-01-11 00:00:00 173.2 [lb_av] [facility] BMI (Body Mass Index) 2023-12-11 00:00:00 28.5 kg/m2 [facility] BP Diastolic 2023-12-11 00:00:00 84 mm[Hg] [facility] Height 2023-12-11 00:00:00 65 [in_i] [facility] BP Systolic 2023-12-11 00:00:00 128 mm[Hg] [facility] Body Weight 2023-12-11 00:00:00 171 [lb_av] [facility] BP Systolic 2023-11-13 00:00:00 118 mm[Hg] [facility] BP Diastolic 2023-11-13 00:00:00 78 mm[Hg] [facility] Body Weight 2023-11-13 00:00:00 165 [lb_av] [facility] Height 2023-11-13 00:00:00 65 [in_i] [facility] BMI (Body Mass Index) 2023-11-13 00:00:00 27.5 kg/m2 [facility] Systolic blood pressure 2023-11-02 13:29:00 119 mm[Hg] [facility] Diastolic blood pressure 2023-11-02 13:29:00 71 mm[Hg] [facility] Heart rate 2023-11-02 13:29:00 94 /min [facility] temperature 2023-11-02 13:29:00 35.56 Julita [facility] Respiratory rate 2023-11-02 13:29:00 18 /min [facility] Body height 2023-11-02 13:29:00 162.6 cm [facility] Body weight 2023-11-02 13:29:00 74.707 kg [facility] BMI 2023-11-02 13:29:00 28.27 kg/m2 [facility] Systolic blood pressure 2023-01-17 20:29:00 108 mm[Hg] [facility] Diastolic blood pressure 2023-01-17 20:29:00 72 mm[Hg] [facility] Heart rate 2023-01-17 20:29:00 99 /min [facility] Body temperature 2023-01-17 20:29:00 36.94 Julita [facility] Respiratory rate 2023-01-17 20:29:00 20 /min [facility] Body height 2023-01-17 20:29:00 162.6 cm [facility] Body weight 2023-01-17 20:29:00 69.718 kg [facility] BMI 2023-01-17 20:29:00 26.38 kg/m2 [facility] Systolic blood pressure 2022-11-01 14:22:00 118 mm[Hg] [facility] Diastolic blood pressure 2022-11-01 14:22:00 75 mm[Hg] [facility] Heart rate 2022-11-01 14:22:00 95 /min Unive [facility] Body temperature 2022-11-01 14:22:00 36.06 Julita [facility] Respiratory rate 2022-11-01 14:22:00 18 /min [facility] Body height 2022-11-01 14:22:00 162.6 cm [facility] Body weight 2022-11-01 14:22:00 70.806 kg [facility] BMI 2022-11-01 14:22:00 26.79 kg/m2 [facility] Systolic blood pressure 2022-05-31 15:48:00 109 mm[Hg] [facility] Diastolic blood pressure 2022-05-31 15:48:00 79 mm[Hg] [facility] Heart rate 2022-05-31 15:48:00 93 /min Un[facility] Body temperature 2022-05-31 15:47:00 36.61 Julita [facility] Respiratory rate 2022-05-31 15:47:00 18 /min [facility] Body height 2022-05-31 15:47:00 165.1 cm [facility] Body weight 2022-05-31 15:47:00 70.421 kg [facility] BMI 2022-05-31 15:47:00 25.83 kg/m2 [facility] Systolic blood pressure 2022-05-25 15:11:00 118 mm[Hg] [facility] Diastolic blood pressure 2022-05-25 15:11:00 80 mm[Hg] [facility] Heart rate 2022-05-25 15:11:00 90 /min [facility] Body temperature 2022-05-25 15:11:00 36.72 Julita [facility] Respiratory rate 2022-05-25 15:11:00 20 /min [facility] Body height 2022-05-25 15:11:00 165.1 cm [facility] Body weight 2022-05-25 15:11:00 69.174 kg [facility] BMI 2022-05-25 15:11:00 25.38 kg/m2 [facility] Systolic blood pressure 2021-11-09 16:24:00 116 mm[Hg] [facility] Diastolic blood pressure 2021-11-09 16:24:00 81 mm[Hg] [facility] Heart rate 2021-11-09 16:24:00 103 /min Un[facility] Body temperature 2021-11-09 16:24:00 36.94 Julita [facility] Respiratory rate 2021-11-09 16:24:00 16 /min [facility] Body height 2021-11-09 16:24:00 165.1 cm [facility] Body weight 2021-11-09 16:24:00 71.215 kg [facility] BMI 2021-11-09 16:24:00 26.13 kg/m2 [facility] Procedures Procedure Date / Time Performed Performing Clinician Source US, obstetric, maternal evaluation + anatomy 2024-01-11 00:00:00 [facility] US, obstetric, 1st trimester 2023-11-13 00:00:00 [facility] POCT TEST 2023-11-02 13:37:00 Rehana Thomas [facility] POCT URINALYSIS W/O SPECIFIC GRAVITY 2023-11-02 13:37:00 Ting Thomas [facility] POCT URINALYSIS 2023-01-17 00:00:00 Rebecca Mcclain [facility] POCT URINALYSIS 2022-11-01 16:32:00 Rebecca Mcclain [facility] GARDASIL 9 (HPV 9V) VACCINE 2022-11-01 15:04:46 Rebecca Mcclain [facility] POCT TEST 2022-11-01 14:48:00 Chandan Mcclain [facility] ASSIGNMENT OF BENEFITS 2022-11-01 14:07:41 Docto r Unassigned, Hume [facility] POCT URINALYSIS W/O SPECIFIC GRAVITY 2022-05-31 15:55:00 Ting Thomas [facility] POCT TEST 2022-05-31 00:00:00 Rehana Thomas [facility] US PELVIS COMPLETE WITH TRANSVAGINAL 2022-05-30 17:34:01 Ting Thomas [facility] URINE CULTURE 2022-05-25 22:36:00 Ting Thomas [facility] GC & CHLAMYDIA AMPLIFIED ASSAY 2022-05-25 22:36:00 Ting Thomas [facility] POCT TEST 2022-05-25 00:00:00 Rehana Thomas [facility] POCT URINALYSIS W/O SPECIFIC GRAVITY 2021-11-09 17:11:00 Rebecca Mcclain [facility] URINE CULTURE 2021-11-09 16:45:00 Rebecca Mcclain [facility] GC & CHLAMYDIA AMPLIFIED ASSAY 2021-11-09 16:45:00 Rebecca Mclcain [facility] GALV ONLY - VAGINAL PATHOGENS BY NUCLEIC ACID TESTING 2021-11-09 16:45:00 Rebecca Mcclain [facility] HIV 1/2 AG-AB WITH REFLEX 2021-11-09 16:45:00 Rebecca Mcclain [facility] TRICHOMONAS AMPLIFIED ASSAY 2021-11-09 16:45:00 Rebecca Mcclain [facility] GALV ONLY - SYPHILIS IGG/IGM 2021-11-09 16:45:00 Rebecca Mcclain [facility] Caesarean Section 2013-10-22 00:00:00 [facility] Caesarean Section 2010-05-05 00:00:00 [facility] Breast Augmentation W/implt [facility] Medical Encounters Start Date/Time End Date/Time Encounter Type Admission Type Attending [facility] Care Facility Care Department Encounter ID Source 2024-02-08 00:00:00 2024-02-08 00:00:00 Chilango Acuña MD: [id number], [address], [place] [address] , Ph. On license of [facility]_ [place] Office* [id number] [facility] 2024-01-11 00:00:00 2024-01-11 00:00:00 Pamela Gay MD: [address] [place] [address], [address], [place] [address] , Ph. [facility] license of [facility] [facility]_ [place] Office* [id number] [facility] 2023-12-11 00:00:00 2023-12-11 00:00:00 Chilango Acuña MD: [address] [place] [address], [address], [place] [address] , Ph. On license of [facility] - _[facility]_ [place] Office* [id number] [facility] 2023-12-10 13:15:00 2023-12-10 13:15:00 Outpatient R REBECCA MCCLAIN [facility] [id number] [facility] 2023-12-03 09:45:00 2023-12-03 09:45:00 Outpatient R REBECCA MCCLAIN [facility] [id number] [facility] 2023-11-30 21:32:00 2023-12-01 02:36:00 Emergency EM Bobbi Arora [facility] YOGI [id number] [facility] 2023-11-13 00:00:00 2023-11-13 00:00:00 Chilango Acuña MD: [address] [facility], [address], [place] [address] , Ph. On license of [facility] - [facility]_ [place] Office* [id number] [facility] 2023-11-02 08:30:00 2023-11-02 09:47:32 Initial Visit Ting Thomas [facility] ANIMAL NURSE [facility]ILD [facility] ..840.114 350.1.13.10 4.2.7.2.686 [id number] [facility] 2023-11-02 08:00:00 2023-11-02 08:24:40 Outpatient R TING [facility] [id number] [facility] 2023-03-05 10:00:00 2023-03-05 10:00:00 Outpatient R [facility] [id number] [facility] 2023-01-22 00:00:00 2023-01-22 00:00:00 Telephone Rebecca Mcclain [facility] ANIMAL NURSE [facility] & CHILD [facility] ..840.114 350.1.13.10 4.2.7.2.686 [id number] 107 [id number] [facility] 2023-01-22 00:00:00 2023-01-22 00:00:00 Telephone Rebecca Mcclain [facility] ANIMAL NURSE [facility] & CHILD [facility] ..840.114 350.1.13.10 4.2.7.2.686 [id number] 107 [id number] [facility] 2023-01-17 15:15:00 2023-01-17 15:30:00 Office Visit Rebecca Mcclain [facility] ANIMAL NURSE [facility] & CHILD [facility] 1.2.840.114 350.1.13.10 4.2.7.2.686 [id number] 107 [id number] [facility] 2023-01-17 15:15:00 2023-01-17 15:15:00 Outpatient R REBECCA MCCLAIN [facility] [id number] [facility] 2022-11-01 09:15:00 2022-11-01 10:22:51 Outpatient R REBECCA MCCLAIN [facility] [id number] [facility] 2022-11-01 09:15:00 2022-11-01 10:22:51 Office Visit Rebecca Mcclain [facility] ANIMAL NURSE [facility] CHILD [facility] 1.2.840.114 350.1.13.10 4.2.7.2.686 [id number] 107 [id number] [facility] 2022-11-01 00:00:00 2022-11-01 00:00:00 Orders Only Doctor Unassigned, Hume [facility] 1.2.840.114 350.1.13.10 4.2.7.2.686 [id number] [facility] 2022-10-08 00:00:00 2022-10-08 00:00:00 Refill Rebecca Mcclain [facility] ANIMAL NURSE [facility] & CHILD [facility] 1.2.840.114 350.1.13.10 4.2.7.2.686 [id number] [facility] 2022-08-30 08:30:00 2022-08-30 08:30:00 Outpatient R REBECCA MCCLAIN [facility] [id number] [facility] 2022-05-31 09:30:00 2022-05-31 10:40:54 Outpatient R TING [facility] [id number] [facility] 2022-05-31 09:30:00 2022-05-31 10:40:54 Office Visit Provider, Ting Leyva [facility] ANIMAL NURSE [facility] & CHILD [facility] .840.114 350.1.13.10 4.2.7.2.686 [id number] 107 [id number] [facility] 2022-05-30 10:19:59 2022-05-30 23:59:00 Outpatient R TING [facility] [id number] [facility] 2022-05-30 10:00:00 2022-05-30 23:59:00 Hospital Encounter Ting Thomas [facility] ..114 350.1.13.10 4.2.7.2.686 [id number] [facility] 2022-05-25 08:45:00 2022-05-25 09:45:32 Outpatient R TING [facility] [id number] [facility] 2022-05-25 08:45:00 2022-05-25 09:45:32 Office Visit Provider, Ting Leyva [facility] ANIMAL NURSE [facility] & CHILD [facility] .840.114 350.1.13.10 4.2.7.2.686 [id number] 107 [id number] [facility] 2022-02-04 08:45:00 2022-02-04 08:45:00 Outpatient R REBECCA MCCLAIN [facility] [id number] [facility] 2021-11-15 00:00:00 2021-11-15 00:00:00 Telephone Rebecca Mcclain [facility] ANIMAL NURSE [facility] & CHILD [facility] .840.114 350.1.13.10 4.2.7.2.686 [id number] 107 [id number] [facility] 2021-11-09 11:00:00 2021-11-09 11:45:48 Outpatient R NATEERICREBECCA [facility] [id number] [facility] 2021-11-09 11:00:00 2021-11-09 11:45:48 Office Visit Rebecca Mcclain SDJEFF ANIMAL NURSE [facility] & CHILD [facility] ..840.114 350.1.13.10 4.2.7.2.686 [id number] 107 [id number] [facility] 2021-11-03 08:00:00 2021-11-03 08:00:00 Outpatient R MARGARITO [facility] [id number] [facility] 2021-11-03 08:00:00 2021-11-03 08:00:00 Outpatient R [facility] [id number] [facility] 2021-10-04 14:45:00 2021-10-04 15:50:18 Outpatient R NATEERICREBECCA [facility] [id number] [facility] 2021-10-04 14:45:00 2021-10-04 15:50:18 Outpatient R NATEERIC REBE[facility] [id number] [facility] 2021-10-04 14:45:00 2021-10-04 15:50:18 Office Visit Rebecca Mcclain SDJEFF ANIMAL NURSE [facility] & CHILD [facility] ..840.114 350.1.13.10 4.2.7.2.686 [id number] 107 [id number] [facility] 2021-10-04 14:15:00 2021-10-04 14:15:00 Outpatient R NATEERICREBECCA [facility] [id number] [facility] 2021-10-04 00:00:00 2021-10-04 00:00:00 Orders Only Doctor Unassigned, Hume [facility] 1.84.114 350.1.13.10 4.2.7.2.686 [id number] [facility] 2021-04-25 00:00:00 2021-04-25 00:00:00 Telephone Rebecca Mcclain [facility] ANIMAL NURSE [facility] CHILD [facility] 1.2840.114 350.1.13.10 4.2.7.2.686 [id number] [facility] 2020-11-08 00:00:00 2020-11-08 00:00:00 Case Management Bela Waed 1.840.114 350.1.13.10 4.2.7.2.686 [id number] [facility] 2020-09-06 08:38:03 2020-09-06 09:58:52 Office Visit Rebecca Mcclain [facility] ANIMAL NURSE [facility] 1.840.114 350.1.13.10 4.2.7.2.686 [id number] [facility] 2020-09-06 08:30:00 2020-09-06 08:30:00 Outpatient R REBECCA MCCLAIN [facility] [id number] [facility] Results Test Description Test Time Test Comments Results Result Co mments Source [facility]Fiiiopkiens [Mass/volume] in Serum or [id number] 00:00:00* Test Item Value Reference Range Interpretation Comme nts dating method: (test code = dating method:) EDC BY ULTRASOUND (PROVIDE EDC DATE BELOW) enter date here: (test code = enter date here:) 06/23/2023 ethnicity: (test code = ethnicity:) insulin dependent diabetic: (test code = insulin dependent diabetic:) N number of fetuses: (test code = number of fetuses:) 1 race: (test code = race:) WHITE () maternal serum AFP screen (test code = maternal serum AFP screen) [facility] and [id number] 00:00:00* Test Item Value Reference Range Interpretation Comme nts C.trachomatis rrna urn (test code = C.trachomatis rrna urn) NOT DETECTED not detected culture, urine (test code = culture, urine) SEE BELOW no growth WBC (test code = WBC) 7.54 x10(3)/uL 4.00-10.10 RBC (test code = RBC) 4.25 x10(6)/uL 3.58-5.19 HGB (test code = HGB) 13.4 g/dL 11.0-15.5 HCT (test code = HCT) 39.2 % 31.5-44.8 MCV (test code = MCV) 92.2 fL 78.0-98.0 MCH (test code = MCH) 31.5 pg 25.2-32.6 MCHC (test code = MCHC) 34.2 g/dL 31.0-34.7 RDW (test code = RDW) 14.5 % 12.0-15.5 platelet count (test code = platelet count) 223 x10(3)/uL 140-425 lymphs (test code = lymphs) 26.0 % 13.7-50.9 monos (test code = monos) 6.4 % 3.0-11.9 eos (test code = eos) 0.5 % 0.0-5.0 basos (test code = basos) 0.4 % 0.0-1.0 MPV (test code = MPV) 12.2 fL 8.6-12.1 H N.gonorrhoeae rrna urn (test code = N.gonorrhoeae rrna urn) NOT DETECTED not detected polys (test code = polys) 66.3 % 37.1-78.1 RPR (test code = RPR) NON-REACTIVE non-reactive immature granulocytes (test code = immature granulocytes) 0.4 % 0.0-1.0 ABO/Rh blood type (test code = ABO/Rh blood type) O POS antibody screen (test code = antibody screen) NEGATIVE negative hep. C Ab. (test code = hep. C Ab.) NON-REACTIVE non-reactive HIV Ag/Ab (test code = HIV Ag/Ab) NON-REACTIVE non-reactive rubella,IgG (test code = rubella,IgG) NON-IMMUNE immune A trichomonas aptima (test cod e = trichomonas aptima) NOT DETECTED not detected HBsAg w/rflx (test code = HBsAg w/rflx) NON-REACTIVE non-reactive [facility] MedicalBacteria identified in Urine by [id number] 00:00:00* Test Item Value Reference Range Interpretation Comme nts bacteria, urine (test code = bacteria, urine) NONE none-few blood, urine (test code = bl ood, urine) NEGATIVE negative bilirubin, urine (test code = bilirubin, urine) NEGATIVE negative cast, granular, ur (test cod e = cast, granular, ur) NOT PRESENT not present cast, hyaline, urine (test c ode = cast, hyaline, urine) NOT PRESENT not present cast, RBC, urine (test code = cast, RBC, urine) NOT PRESENT not present character (test code = character) TURBID clear A color (test code = color) YELLOW yellow crystals urine (test code = crystals urine) NONE none culture, urine (test code = culture, urine) SEE BELOW no growth epithelial cells, ur (test c ode = epithelial cells, ur) FEW none-few glucose, urine (test code = glucose, urine) NEGATIVE negative ketone, urine (test code = ketone, urine) NEGATIVE negative leukocyte esterase (test cod e = leukocyte esterase) NEGATIVE negative nitrites urine (test code = nitrites urine) NEGATIVE negative pH urine (test code = pH urine) 5.5 5.0-8.0 protein, urine (test code = protein, urine) NEGATIVE negative RBC, urine (test code = RBC, urine) 0-2 0-2 specific gravity ur (test co de = specific gravity ur) 1.023 1.003-1.030 urobilinogen urine (test cod e = urobilinogen urine) 1.0 mg/dL 0.2-1.0 WBC, urine (test code = WBC, urine) 0-5 0-5 [facility] MedicalThyrotropin [Units/volume] in Serum or [id number] 00:00:00* Test Item Value Reference Range Interpretation Comme nts TSH (test code = TSH) 0.710 uIU/mL 0.500-4.530 [facility] MedicalHIV 1+2 Ab+HIV1 p24 Ag [Presence] in Serum or Plasma by [id number] 00:00:00* Test Item Value Reference Range Interpretation Comme nts ethnicity: (test code = ethnicity:) OTHER race: (test code = race:) UNKNOWN HIV Ag/Ab (test code = HIV Ag/Ab) NON-REACTIVE non-reactive HIV-1 P24 Ag (test code = HI V-1 P24 Ag) NON-REACTIVE non-reactive HIV 1+2 Ab (test code = HIV 1+2 Ab) NON-REACTIVE non-reactive [facility] MedicalHepatitis C virus Ab [Presence] in [id number] 00:00:00* Test Item Value Reference Range Interpretation Comme nts ethnicity: (test code = ethnicity:) OTHER race: (test code = race:) UNKNOWN hep. C Ab. (test code = hep. C Ab.) NON-REACTIVE non-reactive [facility] MedicalChromosome 13+18+21+X+Y aneuploidy in Blood by Molecular genetics method [id number] 00:00:00* Test Item Value Reference Range Interpretation Comme nts report summary (test code = report summary) LOW RISK report note (test code = report note) SEE NOTES trisomy 13 age-based risk text (test code = trisomy 13 age-based risk text) 1/2,806 (0.04%) trisomy 13 risk score text (test code = trisomy 13 risk score text) <1/10,000 (<0.01%) trisomy 13 result text (test code = trisomy 13 result text) LOW RISK trisomy 18 age-based risk text (test code = trisomy 18 age-based risk text) 1/891 (0.11%) trisomy 18 risk score text (test code = trisomy 18 risk score text) <1/10,000 (<0.01%) trisomy 18 result text (test code = trisomy 18 result text) LOW RISK trisomy 21 age-based risk text (test code = trisomy 21 age-based risk text) 1/383 (0.26%) trisomy 21 risk score text (test code = trisomy 21 risk score text) <1/10,000 (<0.01%) trisomy 21 result text (test code = trisomy 21 result text) LOW RISK monosomy X age-based risk text (test code = monosomy X age-based risk text) 1/255 (0.39%) monosomy X risk score text (test code = monosomy X risk score text) <1/10,000 (<0.01%) monosomy X result text (test code = monosomy X result text) LOW RISK triploidy result text (test code = triploidy result text) LOW RISK gender of fetus (test code = gender of fetus) FEMALE fraction (test code = fraction) 10.3% footnotes (test code = footnotes) SEE NOTES [facility] MedicalUA RFLX MICR CULT IF [id number] 01:09:00* Test Item Value Reference Range Interpretation Comme nts UA COLOR (test code = COLU) YELLOW YELLOW UA APPEARANCE (test code = APPU) CLEAR CLEAR UA GLUCOSE DIPSTICK (test co de = DGLUU) NEGATIVE NEG UA BILIRUBIN DIPSTICK (test code = BILU) NEGATIVE NEG UA KETONE DIPSTICK (test cod e = KETU) NEGATIVE NEG UA SPECIFIC GRAVITY (test co de = SGU) 1.016 1.001-1.035 N UA BLOOD DIPSTICK (test code = AGUSTIN) NEG NEG UA PH DIPSTICK (test code = EDDIE) 6.0 5-9 UA PROTEIN DIPSTICK (test co de = PROU) NEGATIVE NEG UA UROBILINIOGEN DIPSTICK (test code = URO) NEGATIVE mg/dL NEG UA NITRITE DIPSTICK (test co de = HUSSEIN) NEG NEG UA LEUKOCYTE ESTERASE DIPSTI CK (test code = LEUU) NEG NEG UA WBC (test code = WBCU) 0-2 #/hpf NONE SEEN UA RBC (test code = RBCU) 0-2 #/hpf NONE SEEN UA EPITHELIAL CELLS (test co de = EPIU) RARE #/HPF RARE-FEW UA MUCUS (test code = MUCU) RARE NONE SEEN Indication for culture: Suprapubic PainSpecimen Description: CLEAN CATCHCBC W/AUTO [id number] 01:06:00* Test Item Value Reference Range Interpretation Comme nts WHITE BLOOD CELL (test code = WBC) 7.4 K/mm3 6.5-12.3 N RED BLOOD CELL (test code = RBC) 4.36 M/mm3 3.51-4.69 N HEMOGLOBIN (test code = HGB) 13.7 g/dL 10.1-13.8 N HEMATOCRIT (test code = HCT) 39.8 % 32.5-41.8 N MEAN CELL VOLUME (test code = MCV) 91.3 fL 84.6-96.6 N MEAN CELL HGB (test code = MCH) 31.4 pg 27.3-33.9 N MEAN CELL HGB CONCETRATION ( test code = MCHC) 34.4 gm/dL 32.0-34.2 H RED CELL DISTRIBUTION WIDTH (test code = RDW) 14.1 % 12.2-16.3 N PLATELET COUNT (test code = PLT) 213 K/mm3 134-363 N MEAN PLATELET VOLUME (test c ode = MPV) 11.3 fL 9.2-12.7 N NEUTROPHIL % (test code = NT%) 58.9 % 57.9-77.3 N LYMPHOCYTE % (test code = LY%) 32.6 % 14.5-29.7 H MONOCYTE % (test code = MO%) 6.5 % 3.6-10.2 N EOSINOPHIL % (test code = EO%) 1.1 % 0.0-3.0 N BASOPHIL % (test code = BA%) 0.5 % 0.1-0.9 N NEUTROPHIL # (test code = NT#) 4.4 K/mm3 LYMPHOCYTE # (test code = LY#) 2.4 K/mm3 MONOCYTE # (test code = MO#) 0.5 K/mm3 EOSINOPHIL # (test code = EO#) 0.08 K/mm3 BASOPHIL # (test code = BA#) 0.0 K/mm3 - US PREG UT [id number] 00:34:00 [facility] : 1990 Sex: F Patient Name: TERESE STEWART Unit No: [id number] EXAMS: CPT CODE: [id number] US PREG UT TRANSVAGINAL 55521 OB ULTRASOUND FIRST TRIMESTER: CLINICAL HISTORY: Abdominal pain LMP: 09/17/2023 TONI by history: 06/23/2024. TECHNIQUE: Transabdominal and transvaginal scanning was performed. 2-D grayscale, pulsewave,and/or color Doppler was performed. FINDINGS: There is a viable intrauterine with a heartrate of 161 beats per minute. Jamul-rump length is 42 mm corresponding to an age of 11 weeks 1 day.Mean sac diameter is 46 mm corresponding to an age of 10 weeks 1 day. There is no evidence for subchorionic hemorrhage. MATERNAL STRUCTURES: Uterus measures 105 x 59 x 95 mm. Right ovary measures 40 x 23 x 19 mm. Left ovary measures 27 x 11 x 15 mm. Doppler flow seen in both ovaries. IMPRESSION: 1.Viable intrauterine with gestational age of 10 weeks 5 days. 2. TONI by ultrasound 06/22/2024. The systolic at 0034 Reported and signed by: Marc Carnes MD CC: Bobbi Arora MD; Brandon Dodd MD Technologist: Yuni Urbano [facility] Probe: [id number] Trnscrbd D/ (0034) [id number] Orig Print D/T: S: 12/01/2023 (0038) [facility] NAME: TERESE STEWART Radiology Department PHYS: Bobbi Lopez MD [address] : 1990 AGE: 33 SEX: F [place], [place] [address] LOC: [place] PHONE #: [phone] EXAM DATE: 11/30/2023 STATUS: REG ER FAX #: [phone] RAD NO: Page 1 Signed Report Patient Name: TERESE STEWART Unit No: [id number] EXAMS: CPT CODE: [id number] US PREG UT TRANSVAGINAL 14936 (Continued) [facility] NAME: TERESE STEWART Radiology DepartmentPHYS: Bobbi Lopez MD [address] : 1990 AGE: 33 SEX: F [place], [place] [address]NDJT NO: [id number] LOC: [place] PHONE #: [phone] EXAM DATE: 11/30/2023 STATUS: MIRIAN ER FAX #: [phone] RAD NO: Page 2 Signed Report- DUP AB/PEL/SC/LTD 2023-12-01 00:34:00 [facility] : 1990 Sex: F Patient Name: TERESE STEWART Unit No: [id number] EXAMS: CPT CODE: [id number] DUP AB/PEL/SC/LTD 51583 OB ULTRASOUND FIRST TRIMESTER: CLINICAL HISTORY: Abdominal pain LMP: 09/17/2023 TOIN by history: 06/23/2024.TECHNIQUE: Transabdominal and transvaginal scanning was performed. 2-D grayscale, pulsewave, and/orcolor Doppler was performed. FINDINGS: There is a viable intrauterine with a heart rate of 161 beats per minute. Jamul-rump length is 42 mm corresponding to an age of 11 weeks 1 day. Mean sac diameter is 46 mm corresponding to an age of 10 weeks 1 day. There is no evidence for subchorionic hemorrhage. MATERNAL STRUCTURES: Uterus measures 105 x 59 x 95 mm. Right ovary measures 40 x 23 x 19 mm. Left ovary measures 27 x 11 x 15 mm. Doppler flow seen in both ovaries. IMPRESSION: 1. Viableintrauterine with gestational age of 10 weeks 5 days. 2. TONI by ultrasound 06/22/2024. The systolic at 0034 Reported and signed by: Marc Carnes MD CC: Bobbi Arora MD; Brandon Dodd MD Technologist: Yuni Urbano RDMS Probe: Trnscrbd D/ (0034) [id number] Orig Print D/T: S: 12/01/2023 (0038) [facility] NAME: SAMUELGABRIELABoris Radiology Department PHYS: Bobbi Lopez MD [address]OB: 1990 AGE: 33 SEX: F [place], [place] [address] LOC: PriyankERS PHONE #: [phone] EXAM DATE: 11/30/2023 STATUS: REG ER FAX #: [phone] RAD NO: Page 1 Signed Report Patient Name: TERESE STEWART Unit No: [id number] EXAMS: CPT CODE: [id number] DUP AB/PEL/SC/LTD 81367 (Continued) [facility] NAME: SAMUELAMEEDEMETRA Radiology Department PHYS: Bobbi Lopez MD [address] : 1990 AGE: 33 SEX: F [place], [place] [address] LOC: [place] PHONE #: [phone] EXAM DATE: 11/30/2023 STATUS: REG ER FAX #: [phone] RAD NO: Page 2 Signed Report- US PREG EVAL 1ST [id number] 00:34:00[facility] : 1990 Sex: F Patient Name: TERESE STEWART Unit No: [id number] EXAMS: CPT CODE: [id number] US PREG EVAL 1ST TRIMTR 20383 OB ULTRASOUND FIRST TRIMESTER: CLINICAL HISTORY: Abdominal pain LMP: 09/17/2023 TONI by history: 06/23/2024. TECHNIQUE: Transabdominal and transvaginal scanning was performed. 2-D grayscale, pulsewave,and/or color Doppler was performed. FINDINGS: There is a viable intrauterine with a heartrate of 161 beats per minute. Jamul-rump length is 42 mm corresponding to an age of 11 weeks 1 day.Mean sac diameter is 46 mm corresponding to an age of 10 weeks 1 day. There is no evidence for subchorionic hemorrhage. MATERNAL STRUCTURES: Uterus measures 105 x 59 x 95 mm. Right ovary measures 40x 23 x 19 mm. Left ovary measures 27 x 11 x 15 mm. Doppler flow seen in both ovaries. IMPRESSION: 1. Viable intrauterine with gestational age of 10 weeks 5 days. 2. TONI by ultrasound 06/22/2024. The systolic at 0034 Reported andsigned by: Marc Carnes MD CC: Bobbi Arora MD; Brandon Dodd MD Technologist: Yuni Urbano RDMS Probe: Trnscrbd D/ (0034) [email or web address].SDR.RJS5 Orig Print D/T: S: 12/01/2023 (0038) [facility] NAME: TERESE STEWART Radiology Department PHYS: Bobbi Lopez MD [address] : 1990 AGE: 33 SEX: F [place], [place] [address] LOC: [place] PHONE #: [phone] EXAM DATE: 11/30/2023 STATUS: REG ER FAX #: [phone] RAD NO: Page 1 Signed Repo rt Patient Name: TERESE STEWART Unit No: [id number] EXAMS: CPT CODE: [id number] US PREG EVAL 1ST TRIMTR 37107 (Continued) [facility] NAME: TERESE STEWART Radiology Department PHYS:Bobbi Lopez MD [address] : 1990 AGE: 33 SEX: F [place], [place] [address] LOC: [place] PHONE #: [phone] EXAM DATE: 11/30/2023 STATUS: REG ER FAX #: [phone] RAD NO: Page 2 Signed ReportPOCT Urinalysis w/o Specific Klemme 2023-11-02 13:39:00* Test Item Value Reference Range Interpretation Comme nts POCT PH U (test code = 3254) 6 mg/dl 5-8 POCT U LEUK EST (test code = 3263) trace Negative - Negative POCT U NIT (test code = 3262) neg Negative - Negati ve POCT U PROT (test code = 3259) trace Negative - Negat marlene POCT U GLU (test code = 3256) neg Negative - Negati ve POCT U KETONE (test code = 3258) neg Negative - Neg ative POCT U BLD (test code = 3257) neg Negative - Negati ve [facility] [id number] 13:37:00* Test Item Value Reference Range Interpretation Comme nts POCT PREG (test code = 1605) Positive On board controls acceptable with C Line (test code = 3574) Yes POCT PREG LOT # (test code = 3575) POCT PREG TEST DATE ( test code = 3576) [facility] UR[facility] W SPECIFIC [id number] 20:38:00* Test Item Value Reference Range Interpretation Comme nts POCT U SP GRAV (test code = 3255) . 1.005-1.025 POCT PH U (test code = 3254) 5 mg/dl 5-8 POCT U LEUK EST (test code = 3263) trace Negative - Negative POCT U NIT (test code = 3262) positive Negative - Negati ve POCT U PROT (test code = 3259) trace Negative - Negat marlene POCT U GLU (test code = 3256) negative Negative - Negati ve POCT U KETONE (test code = 3258) negative Negative - Neg ative POCT U UROBILI (test code = 3260) . 0.2-1 POCT U BILI (test code = 3261) . Negative - Negat marlene POCT U BLD (test code = 3257) 250 Negative - Negati ve POCT U COLOR (test code = 3266) . POCT U APPEAR (test code = 3267) . [facility] URINALYSIS W SPECIFIC [id number] 20:38:00* Test Item Value Reference Range Interpretation Comme nts POCT U SP GRAV (test code = 3255) . 1.005-1.025 POCT PH U (test code = 3254) 5 mg/dl 5-8 POCT U LEUK EST (test code = 3263) trace Negative - Negative POCT U NIT (test code = 3262) positive Negative - Negati ve POCT U PROT (test code = 3259) trace Negative - Negat marlene POCT U GLU (test code = 3256) negative Negative - Negati ve POCT U KETONE (test code = 3258) negative Negative - Neg ative POCT U UROBILI (test code = 3260) . 0.2-1 POCT U BILI (test code = 3261) . Negative - Negat marlene POCT U BLD (test code = 3257) 250 Negative - Negati ve POCT U COLOR (test code = 3266) . POCT U APPEAR (test code = 3267) . [facility] URINALYSIS W SPECIFIC [id number] 16:32:00* Test Item Value Reference Range Interpretation Comme nts POCT U SP GRAV (test code = 3255) . 1.005-1.025 A POCT PH U (test code = 3254) 7 mg/dl 5-8 POCT U LEUK EST (test code = 3263) NEG Negative - Negative POCT U NIT (test code = 3262) NEG Negative - Negati ve POCT U PROT (test code = 3259) TRACE Negative - Negat marlene POCT U GLU (test code = 3256) NEG Negative - Negati ve POCT U KETONE (test code = 3258) NEG Negative - Neg ative POCT U UROBILI (test code = 3260) 7 mg/dl 0.2-1 A POCT U BILI (test code = 3261) . Negative - Negat marlene POCT U BLD (test code = 3257) . Negative - Negati ve POCT U COLOR (test code = 3266) . POCT U APPEAR (test code = 3267) . Lab Interpretation (test cod e = 70907-2) Abnormal [facility] URINALYSIS W SPECIFIC [id number] 16:32:00* Test Item Value Reference Range Interpretation Comme nts POCT U SP GRAV (test code = 3255) . 1.005-1.025 A POCT PH U (test code = 3254) 7 mg/dl 5-8 POCT U LEUK EST (test code = 3263) NEG Negative - Negative POCT U NIT (test code = 3262) NEG Negative - Negati ve POCT U PROT (test code = 3259) TRACE Negative - Negat marlene POCT U GLU (test code = 3256) NEG Negative - Negati ve POCT U KETONE (test code = 3258) NEG Negative - Neg ative POCT U UROBILI (test code = 3260) 7 mg/dl 0.2-1 A POCT U BILI (test code = 3261) . Negative - Negat marlene POCT U BLD (test code = 3257) . Negative - Negati ve POCT U COLOR (test code = 3266) . POCT U APPEAR (test code = 3267) . Lab Interpretation (test cod e = 98912-4) Abnormal [facility] [id number] 14:49:00* Test Item Value Reference Range Interpretation Comme nts POCT PREG (test code = 1605) Negative On board controls acceptable with C Line (test code = 3574) Yes POCT PREG LOT # (test code = 3575) POCT PREG TEST DATE ( test code = 3576) [facility] [id number] 14:49:00* Test Item Value Reference Range Interpretation Comme nts POCT PREG (test code = 1605) Negative On board controls acceptable with C Line (test code = 3574) Yes POCT PREG LOT # (test code = 3575) POCT PREG TEST DATE ( test code = 3576) [facility] [id number] 16:28:00* Test Item Value Reference Range Interpretation Comme nts POCT PREG (test code = 1605) Negative On board controls acceptable with C Line (test code = 3574) Yes POCT PREG LOT # (test code = 3575) POCT PREG TEST DATE ( test code = 3576) [facility] [id number] 16:28:00* Test Item Value Reference Range Interpretation Comme nts POCT PREG (test code = 1605) Negative On board controls acceptable with C Line (test code = 3574) Yes POCT PREG LOT # (test code = 3575) POCT PREG TEST DATE ( test code = 3576) [facility] URINALYSIS W/O SPECIFIC [id number] 15:55:00* Test Item Value Reference Range Interpretation Comme nts POCT PH U (test code = 3254) 7 mg/dl 5-8 POCT U LEUK EST (test code = 3263) Neg Negative - Negative POCT U NIT (test code = 3262) Neg Negative - Negati ve POCT U PROT (test code = 3259) Trace Negative - Negat marlene POCT U GLU (test code = 3256) Neg Negative - Negati ve POCT U KETONE (test code = 3258) None Negative - Neg ative POCT U BLD (test code = 3257) Trace Negative - Negati ve [facility] URINALYSIS W/O SPECIFIC [id number] 15:55:00* Test Item Value Reference Range Interpretation Comme nts POCT PH U (test code = 3254) 7 mg/dl 5-8 POCT U LEUK EST (test code = 3263) Neg Negative - Negative POCT U NIT (test code = 3262) Neg Negative - Negati ve POCT U PROT (test code = 3259) Trace Negative - Negat marlene POCT U GLU (test code = 3256) Neg Negative - Negati ve POCT U KETONE (test code = 3258) None Negative - Neg ative POCT U BLD (test code = 3257) Trace Negative - Negati ve [facility] [id number] 15:22:00* Test Item Value Reference Range Interpretation Comme nts POCT PREG (test code = 1605) Negative On board controls acceptable with C Line (test code = 3574) Yes POCT PREG LOT # (test code = 3575) POCT PREG TEST DATE ( test code = 3576) [facility] [id number] 15:22:00* Test Item Value Reference Range Interpretation Comme nts POCT PREG (test code = 1605) Negative On board controls acceptable with C Line (test code = 3574) Yes POCT PREG LOT # (test code = 3575) POCT PREG TEST DATE ( test code = 3576) [facility] [id number] 16:03:36* Test Item Value Reference Range Interpretation Comme nts Syphilis IgG/IgM (test code = 97447-8) Non-reactive Non-reactive LUKAS (test code = LUKAS) Non-reactive - No serologic evidence of T. pallidum infection. Cannot exclude incubating or early syphilis. Submit a second specimen in 2-4 weeks if syphilis is clinically suspected. Equivocal - Further testing to follow. Reactive - Further testing to follow. Lab Interpretation (test code = 27887-3) Normal [facility] AG-AB WITH [id number] 05:57:10* Test Item Value Reference Range Interpretation Comme nts HIV Semi-quantitative (test code = 12413-1) Negative Negative LUKAS (test code = LUKAS) Non-reactive for HIV-1 antigen and HIV-1/HIV-2 antibodies. ?No laboratory evidence of HIV infection. ?Repeat in 2-4 weeks if acute HIV infection is suspected. [facility] URINALYSIS W/O SPECIFIC [id number] 17:11:00* Test Item Value Reference Range Interpretation Comme nts POCT PH U (test code = 3254) 8 mg/dl 5-8 POCT U LEUK EST (test code = 3263) 2+ Negative - Negative POCT U NIT (test code = 3262) Pos Negative - Negati ve POCT U PROT (test code = 3259) Trace Negative - Negat marlene POCT U GLU (test code = 3256) Neg Negative - Negati ve POCT U KETONE (test code = 3258) None Negative - Neg ative POCT U BLD (test code = 3257) Large Negative - Negati ve [facility] [id number] 05:35:00* Test Item Value Reference Range Interpretation Comme nts HEMOGLOBIN (test code = HGB) 10.5 g/dL 10.7-13.9 L HEMATOCRIT (test code = HCT) 33.7 % 32.1-42.1 N AG HEPATITIS B [id number] 05:33:00* Test Item Value Reference Range Interpretation Comme nts AG HEPATITIS B SURFACE (test code = HBSAG) NONREACTIVE NONREACTIVE Specimen Comment: LDO DIS CONSENT FORM SIGNED FOR HIV TESTING? YAB HEPATITIS C [id number] 05:33:00* Test Item Value Reference Range Interpretation Comme nts AB HEPATITIS C (test code = HCVAB) NONREACTIVE NONREACTIVE SIGNAL TO CUTOFF (test code = CUTOFF) 0.12 <0.80 N Specimen Comment: LDO DIS CONSENT FORM SIGNED FOR HIV TESTING? YAB TREPONEMA 2019-03-13 05:33:00* Test Item Value Reference Range Interpretation Comme nts AB TREPONEMA (test code = TREPAB) NONREACTIVE NONREACTIVE Specimen Comment: LDO DIS CONSENT FORM SIGNED FOR HIV TESTING? YAB HIV 1 2 2019-03-13 05:33:00* Test Item Value Reference Range Interpretation Comme nts AB HIV 1 2 (test code = VAR11SH) NONREACTIVE NONREACTIVE Done by [employer] 4[employer] HIV Ag/Ab Combo Screen Specimen Comment: LDO DIS CONSENT FORM SIGNED FOR HIV TESTING? YCOMPREHENSIVE METABOLIC [id number] 02:27:00* Test Item Value Reference Range Interpretation Comme nts SODIUM (test code = NA) 137 mEq/L 135-145 N POTASSIUM (test code = K) 4.5 mEq/L 3.5-5.0 N CHLORIDE (test code = CL) 105 mEq/L 100-115 N CARBON DIOXIDE (test code = CO2) 21 mEq/L 22-31 L ANION GAP (test code = GAP) 15.50 10-20 N GLUCOSE (test code = GLU) 84 mg/dL 65-110 N BLOOD UREA NITROGEN (test co de = BUN) 6 mg/dL 7-18 L GLOMERULAR FILTRATION RATE ( test code = GFR) 191 ml/min >60 N CREATININE (test code = CREAT) 0.4 mg/dL 0.5-1.0 L TOTAL PROTEIN (test code = PROT) 6.4 gm/dL 6.3-8.2 N ALBUMIN (test code = ALB) 2.5 gm/dL 3.4-4.8 L CALCIUM (test code = CA) 8.3 mg/dL 8.4-10.2 L BILIRUBIN TOTAL (test code = BILT) 0.7 mg/dL 0.2-1.0 N SGOT/AST (test code = AST) 35 units/L 15-37 N SGPT/ALT (test code = ALT) 22 units/L 12-78 N ALKALINE PHOSPHATASE TOTAL ( test code = ALKP) 139 units/L 46-116 H CBC W/AUTO [id number] 01:49:00* Test Item Value Reference Range Interpretation Comme nts WHITE BLOOD CELL (test code = WBC) 7.7 K/mm3 6.6-12.1 N RED BLOOD CELL (test code = RBC) 4.00 M/mm3 3.45-5.01 N HEMOGLOBIN (test code = HGB) 10.3 g/dL 10.7-13.9 L HEMATOCRIT (test code = HCT) 33.1 % 32.1-42.1 N MEAN CELL VOLUME (test code = MCV) 83 fL 84.1-94.8 L MEAN CELL HGB (test code = MCH) 25.8 pg 27-35 L MEAN CELL HGB CONCETRATION ( test code = MCHC) 31.1 gm/dL 32.2-34.1 L RED CELL DISTRIBUTION WIDTH (test code = RDW) 15.3 % 12.4-16.5 N PLATELET COUNT (test code = PLT) 243 K/mm3 133-385 N IMMATURE PLATELET FRACTION ( test code = IPF) 0.0 % 0.0-10.8 N MEAN PLATELET VOLUME (test c ode = MPV) 11.6 fl 9.1-12.7 N NEUTROPHIL % (test code = NT%) 66.7 % 56.5-79.4 N LYMPHOCYTE % (test code = LY%) 26.4 % 14.3-34.3 N MONOCYTE % (test code = MO%) 4.9 % 5.1-10.4 L EOSINOPHIL % (test code = EO%) 0.6 % 0.1-3.0 N BASOPHIL % (test code = BA%) 0.5 % 0.1-1.0 N NEUTROPHIL # (test code = NT#) 5.2 K/mm3 LYMPHOCYTE # (test code = LY#) 2.0 K/mm3 MONOCYTE # (test code = MO#) 0.4 K/mm3 EOSINOPHIL # (test code = EO#) 0.05 K/mm3 BASOPHIL # (test code = BA#) 0.0 K/mm3 RBC MORPHOLOGY REQUIRED (tony t code = RBCM) NORMAL NORMAL PLATELET MORPHOLOGY REQUIRED (test code = PLTMR) NORMAL NORMAL AG HEPATITIS B [id number] 16:25:00* Test Item Value Reference Range Interpretation Comme nts AG HEPATITIS B SURFACE (test code = HBSAG) NONREACTIVE NONREACTIVE IS CONSENT FORM SIGNED FOR HIV TESTING? YAB HEPATITIS C [id number] 16:25:00* Test Item Value Reference Range Interpretation Comme nts AB HEPATITIS C (test code = HCVAB) NONREACTIVE NONREACTIVE SIGNAL TO CUTOFF (test code = CUTOFF) 0.13 <0.80 N IS CONSENT FORM SIGNED FOR HIV TESTING? YAB [id number] 16:25:00* Test Item Value Reference Range Interpretation Comme nts AB TREPONEMA (test code = TREPAB) NONREACTIVE NONREACTIVE IS CONSENT FORM SIGNED FOR HIV TESTING? SCOTTYB HIV 1 16:25:00* Test Item Value Reference Range Interpretation Comme nts AB HIV 1 2 (test code = MSI05GI) NONREACTIVE NONREACTIVE Done by [employer] 4[employer] HIV Ag/Ab Combo Screen IS CONSENT FORM SIGNED FOR HIV TESTING? YAG HEPATITIS B [id number] 15:59:00* Test Item Value Reference Range Interpretation Comme nts AG HEPATITIS B SURFACE (test code = HBSAG) NONREACTIVE NONREACTIVE IS CONSENT FORM SIGNED FOR HIV TESTING? YAB HEPATITIS C [id number] 15:59:00* Test Item Value Reference Range Interpretation Comme nts AB HEPATITIS C (test code = HCVAB) NONREACTIVE SIGNAL TO CUTOFF (test code = CUTOFF) <0.80 IS CONSENT FORM SIGNED FOR HIV TESTING? YAB [id number] 15:59:00* Test Item Value Reference Range Interpretation Comme nts AB TREPONEMA (test code = TREPAB) NONREACTIVE NONREACTIVE IS CONSENT FORM SIGNED FOR HIV TESTING? YAB HIV 1 15:59:00* Test Item Value Reference Range Interpretation Comme nts AB HIV 1 2 (test code = SHS13ZE) NONREACTIVE IS CONSENT FORM SIGNED FOR HIV TESTING? YURINALYSIS W/O [id number] 15:10:00 * Test Item Value Reference Range Interpretation Comme nts UA GLUCOSE DIPSTICK (test co de = DGLUU) NEGATIVE NEGATIVE UA KETONE DIPSTICK (test cod e = KETU) NEGATIVE NEGATIVE UA PROTEIN DIPSTICK (test co de = PROU) NEGATIVE NEGATIVE IS NURSE PERFORMING TEST? NCBC W/AUTO [id number] 15:09:00* Test Item Value Reference Range Interpretation Comme nts WHITE BLOOD CELL (test code = WBC) 7.0 K/mm3 6.6-12.1 N RED BLOOD CELL (test code = RBC) 4.05 M/mm3 3.45-5.01 N HEMOGLOBIN (test code = HGB) 10.3 g/dL 10.7-13.9 L HEMATOCRIT (test code = HCT) 33.3 % 32.1-42.1 N MEAN CELL VOLUME (test code = MCV) 82 fL 84.1-94.8 L MEAN CELL HGB (test code = MCH) 25.4 pg 27-35 L MEAN CELL HGB CONCETRATION ( test code = MCHC) 30.9 gm/dL 32.2-34.1 L RED CELL DISTRIBUTION WIDTH (test code = RDW) 15.3 % 12.4-16.5 N PLATELET COUNT (test code = PLT) 256 K/mm3 133-385 N IMMATURE PLATELET FRACTION ( test code = IPF) 0.0 % 0.0-10.8 N MEAN PLATELET VOLUME (test c ode = MPV) 11.6 fl 9.1-12.7 N NEUTROPHIL % (test code = NT%) 65.9 % 56.5-79.4 N LYMPHOCYTE % (test code = LY%) 24.9 % 14.3-34.3 N MONOCYTE % (test code = MO%) 7.0 % 5.1-10.4 N EOSINOPHIL % (test code = EO%) 0.9 % 0.1-3.0 N BASOPHIL % (test code = BA%) 0.4 % 0.1-1.0 N NEUTROPHIL # (test code = NT#) 4.7 K/mm3 LYMPHOCYTE # (test code = LY#) 1.8 K/mm3 MONOCYTE # (test code = MO#) 0.5 K/mm3 EOSINOPHIL # (test code = EO#) 0.06 K/mm3 BASOPHIL # (test code = BA#) 0.0 K/mm3 RBC MORPHOLOGY REQUIRED (tony t code = RBCM) NORMAL NORMAL PLATELET MORPHOLOGY REQUIRED (test code = PLTMR) NORMAL NORMAL - US PREG UT [id number] 03:20:00Patient Name: TERESE STEWART Unit No: [id number] EXAMS: CPT CODE: [id number] US PREG UT [id number] EXAM: US, US PREG UT TRANSVAGINAL: 09/12/2018 EXAM: US, US PREG 1ST TRIMTR: 09/12/2018 History:Bilateral flank pain. 13 week . TECHNIQUE: Sonographic evaluation is performed of the pelvis using grayscale, color flow and Doppler imaging as appropriate. Transabdominal and transvaginal pelvic imaging is obtained. Findings: Transabdominal ultrasound: Anteverted uterus. Single intrauterine gestational sac is seen. Posterior placenta. No subchorionic bleed noted. Right ovary measures 3.0x 2.0 x 2.8 cm. Left ovary measures 2.2 x 1.6 x 2.1 cm. Normal flow is noted to the both ovaries. There is a 1.8 x 1.6 x 1.5 cm cyst in the right ovary. Previously 2.3 x 3.1 x 2.6 cm Endovaginal pelvic ultrasound: Single live intrauterine gestation is identified at 13 weeks 3 days with sonographic TONI of 03/17/2019. heart rate is 152 bpm. Placenta is posterior. Low Placenta is noted. No subchorionic bleed is identified. Ovaries are not visualized on endovaginal pelvic ultrasound, obscured by bowel gas. Cervical length: Endovaginal exam shows cervical length to be 3.8 cm. IMPRESSION: 1. Single live intrauterine gestation at 13 weeks 3 days. heart beat at 152 bpm 2. No subchorionicbleed seen. 3. Low laying placenta. 4. Right ovarian cyst, smaller as compared to the previous study. SL: JSYED-H at 0320 Reported and signed by: Fady Car M.D. CC: Brandon Dodd MD; Claudia Finn MD Technologist: ISMAEL SMITH [facility],RVT Probe: [id number] Trnscrbd D/ (032) [id number] Orig Print D/T: S: 09/12/2018 (032) [facility] NAME: TERESE STEWART Radiology Department PHYS: Claudia Jones MD [address] : 1990 AGE: 28 SEX: F [place] [address] LOC: PriyankERS PHONE #: [phone] EXAM DATE: 09/12/2018 STATUS: REG ER FAX #: [phone] RAD NO: Page 1Signed Report Patient Name: TERESE STEWART Unit No: [id number] EXAMS: CPT CODE: [id number] US PREG UTTRANSVAGINAL [id number] (Continued) [facility] NAME: TERESE STEWART Radiology Departme nt PHYS: Claudia Jones MD [address] : 1990 AGE: 28 SEX: F [place] [address] LOC: PriyankERS PHONE #: [phone] EXAM DATE: 09/12/2018 STATUS: REG ER FAX #: [phone] RAD NO: Page 2 Signed Report- US PREG EVAL 1ST [id number] 03:20:00Patient Name: TERESE STEWART Unit No: [id number] EXAMS: CPT CODE: [id number] US PREG EVAL 1ST TRIMTR [id number] EXAM: US, US PREG UT TRANSVAGINAL: 09/12/2018 EXAM: US, US PREG 1ST TRIMTR: 09/12/2018 History: Bilateral flank pain. 13 week . TECHNIQUE: Sonographic evaluation is performed of the pelvisusing grayscale, color flow and Doppler imaging as appropriate. Transabdominal and transvaginal pelvic imaging is obtained. Findings: Transabdominal ultrasound: Anteverted uterus. Single intrauterinegestational sac is seen. Posterior placenta. No subchorionic bleed noted. Right ovary measures 3.0 x 2.0 x 2.8 cm. Left ovary measures 2.2 x 1.6 x 2.1 cm. Normal flow is noted to the both ovaries. There is a 1.8 x 1.6 x 1.5 cm cyst in the right ovary. Previously 2.3 x 3.1 x 2.6 cm Endovaginal pelvic ultrasound: Single live intrauterine gestation is identified at 13 weeks 3 days with sonographic TONI of 03/17/2019. heart rate is 152 bpm. Placenta is posterior. Low Placenta is noted. No subchorionic bleed is identified. Ovaries are not visualized on endovaginal pelvic ultrasound, obscured by bowel gas. Cervical length: Endovaginal exam shows cervical length to be 3.8 cm. IMPRESSION: 1. Single live intrauterine gestation at 13 weeks 3 days. heart beat at 152 bpm 2. No subchorionicbleed seen. 3. Low laying placenta. 4. Right ovarian cyst, smaller as compared to the previous study. SL: JSYED-H at 0320 Reported and signed by: Fady Car M.D. CC: Brandon Dodd MD; Claudia Finn MD Technologist: ISMAEL SMITH RDMS, T Probe: Trnscrbd D/ (0320) [id number] Orig Print D/T: S: 09/12/2018 (0323) [facility] NAME: TERESE STEWART Radiology Department PHYS: Claudia Jones MD [address] : 1990 AGE: 28 SEX: F [place], [place] [address] LOC: [place] PHONE #: [phone] EXAM DATE: 09/12/2018 STATUS: REG ER FAX #: [phone] RAD NO: Page 1 Signed Report Patient Name: TERESE STEWART Unit No: [id number] EXAMS: CPT CODE: [id number] US PREG EVAL 1ST [id number] (Continued) [facility] NAME: TERESE STEWART Radiology Department PHYS: Claudia Jones MD [address] : 1990 AGE: 28 SEX: F [place], [place] [address] LOC: [place] PHONE #: [phone] EXAM DATE: 09/12/2018 STATUS: REG ER FAX #: [phone] NO: Page 2 Signed Report COMPREHENSIVE METABOLIC [id number] 01:56:00* Test Item Value Reference Range Interpretation Comme nts SODIUM (test code = NA) 136 mEq/L 135-145 N POTASSIUM (test code = K) 3.4 mEq/L 3.5-5.0 L CHLORIDE (test code = CL) 103 mEq/L 100-115 N CARBON DIOXIDE (test code = CO2) 25 mEq/L 22-31 N ANION GAP (test code = GAP) 11.10 10-20 N GLUCOSE (test code = GLU) 94 mg/dL 65-110 N BLOOD UREA NITROGEN (test co de = BUN) 6 mg/dL 7-18 L GLOMERULAR FILTRATION RATE ( test code = GFR) 100 ml/min >60 N CREATININE (test code = CREAT) 0.7 mg/dL 0.5-1.0 N TOTAL PROTEIN (test code = PROT) 6.7 gm/dL 6.3-8.2 N ALBUMIN (test code = ALB) 2.6 gm/dL 3.4-4.8 L CALCIUM (test code = CA) 8.4 mg/dL 8.4-10.2 N BILIRUBIN TOTAL (test code = BILT) 0.4 mg/dL 0.2-1.0 N SGOT/AST (test code = AST) 12 units/L 15-37 L SGPT/ALT (test code = ALT) 11 units/L 12-78 L ALKALINE PHOSPHATASE TOTAL ( test code = ALKP) 59 units/L 46-116 N CBC W/AUTO [id number] 01:40:00* Test Item Value Reference Range Interpretation Comme nts WHITE BLOOD CELL (test code = WBC) 6.2 K/mm3 6.6-12.1 L RED BLOOD CELL (test code = RBC) 4.04 M/mm3 3.45-5.01 N HEMOGLOBIN (test code = HGB) 12.4 g/dL 10.7-13.9 N HEMATOCRIT (test code = HCT) 37.3 % 32.1-42.1 N MEAN CELL VOLUME (test code = MCV) 92 fL 84.1-94.8 N MEAN CELL HGB (test code = MCH) 30.7 pg 27-35 N MEAN CELL HGB CONCETRATION ( test code = MCHC) 33.2 gm/dL 32.2-34.1 N RED CELL DISTRIBUTION WIDTH (test code = RDW) 13.2 % 12.4-16.5 N PLATELET COUNT (test code = PLT) 196 K/mm3 133-385 N IMMATURE PLATELET FRACTION ( test code = IPF) 0.0 % 0.0-10.8 N MEAN PLATELET VOLUME (test c ode = MPV) 11.3 fl 9.1-12.7 N NEUTROPHIL % (test code = NT%) 64.5 % 56.5-79.4 N LYMPHOCYTE % (test code = LY%) 25.7 % 14.3-34.3 N MONOCYTE % (test code = MO%) 8.4 % 5.1-10.4 N EOSINOPHIL % (test code = EO%) 0.6 % 0.1-3.0 N BASOPHIL % (test code = BA%) 0.5 % 0.1-1.0 N NEUTROPHIL # (test code = NT#) 4.0 K/mm3 LYMPHOCYTE # (test code = LY#) 1.6 K/mm3 MONOCYTE # (test code = MO#) 0.5 K/mm3 EOSINOPHIL # (test code = EO#) 0.04 K/mm3 BASOPHIL # (test code = BA#) 0.0 K/mm3 RBC MORPHOLOGY REQUIRED (tony t code = RBCM) NORMAL NORMAL PLATELET MORPHOLOGY REQUIRED (test code = PLTMR) NORMAL NORMAL UA RFLX MICR CULT IF [id number] 01:26:00* Test Item Value Reference Range Interpretation Comme nts UA COLOR (test code = COLU) YELLOW YELLOW UA APPEARANCE (test code = APPU) Slightly-Cloudy CLEAR UA GLUCOSE DIPSTICK (test code = DGLUU) NEGATIVE NEG UA BILIRUBIN DIPSTICK (test code = BILU) NEGATIVE NEG UA KETONE DIPSTICK (test cod e = KETU) NEGATIVE NEG UA SPECIFIC GRAVITY (test code = SGU) 1.017 1.001-1.035 N UA BLOOD DIPSTICK (test code = AGUSTIN) NEG NEG UA PH DIPSTICK (test code = EDDIE) 5.0 5-9 UA PROTEIN DIPSTICK (test code = PROU) NEGATIVE NEG UA UROBILINIOGEN DIPSTICK (test code = URO) NEGATIVE mg/dL NEG UA NITRITE DIPSTICK (test code = HUSSEIN) NEG NEG UA LEUKOCYTE ESTERASE DIPSTICK (test code = LEUU) NEG NEG UA WBC (test code = WBCU) 0-2 #/hpf NONE SEEN UA RBC (test code = RBCU) 0-2 #/hpf NONE SEEN UA EPITHELIAL CELLS (test code = EPIU) RARE #/HPF RARE-FEW UA BACTERIA (test code = BACU) RARE /HPF RARE-FEW UA MUCUS (test code = MUCU) 1+ NONE SEEN - US PREG UT [id number] 00:28:00Patient Name: TERESE STEWART Unit No: [id number] EXAMS: CPT CODE: [id number] US PREG UT [id number] EXAM: US, US PREG 1ST TRIMTR; 07/30/2018 EXAM: US, US PREG UT TRANSVAGINAL; 07/30/2018 ClinicalIndication: . Pelvic pain. Burning with urination. Comparison: None. TECHNIQUE: Technique: Grayscale, color and Doppler transabdominal and transvaginal imaging of the pelvis was performed with standard technique. FINDINGS: Transabdominal pelvic ultrasound: Uterus is retroverted. Uterus zaira ures 12.4 x 8.0 x 8.6 cm. A gestational sac containing pole is noted measuring up to 2.0 cm. Right ovary measures 4.3 x 3.1 x 3.2 cm. Left ovary is not visualized. A cyst in the right ovary measuring 2.3 x 2.3 x 2.0 cm, probably corpus luteum cyst. For better visualization of the gestational sac and adnexa, endovaginal pelvic ultrasound is performed. Endovaginal pelvic ultrasound: UTERUS: Uterus measures 9.2 x 5.7 x 7.9 cm. A single live intrauterine gestation is identified at 6 weeks 5 days with positive heart beat 128 bpm. Sonographic TONI is 03/20/2019. pole and yolk sac seen. A 1.5 x 1.5 x 0.9 cm heterogenous area adjacent to the gestational sac probably subchorionic ble ed.. OVARIES: RIGHT: 4.1 x 2.7 x 3.3 cm. LEFT: 2.9 x 2.6 x 3.2 cm. A 2.3 x 3.1 x 2.6 cm cyst is noted in the right ovary. Normal flow is noted to the both ovaries. OTHER FINDINGS: No free fluid in the cul-de-sac. If there is further concern, followup pelvic sonography may be performed. IMPRESSION: 1. Single live intrauterine gestation at 6 weeks 5 days. heart beat at 128 bpm. 2. Small subchorionic bleed. 3. Right ovarian cyst. SL: RAJINDER [facility] Department PHYS: JATINDER Macrelo Hair [address] : 1990 AGE: 28 SEX: [place] [address] LOC: [place] PHONE #: [phone] EXAM DATE: 07/30/2018 STATUS: REG ER FAX #: [phone] RAD NO: Page 1 Signed Report (CONTINUED) Patient Name: TERESE STEWART Unit No: [id number] EXAMS: CPT CODE: [id number] [facility] TRANSVAGINAL [address] (Continued) at 0028 Reported and signed by: Fady Car M.D. CC: Technologist: Nancy Conley RDMS, RVT Probe: [id number] Trnscrbd D/ (0028) [id number] Orig Print D/T: S: 07/31/2018 (0032) [facility] Department PHYS: Marcelo Osman [address] : 1990 AGE: 28 SEX: [place], [place] [address] LOC: [facility]ankERS PHONE #: [phone] EXAM DATE: 07/30/2018 STATUS: REG ER FAX #: [phone] RAD NO: Page 2 Signed Report Patient Name: TERESE STEWART Unit No: [id number] EXAMS: CPT CODE: [id number] US PREG [place] TRANSVAGINAL 08149 (Continued) [facility] NAME: TERESE STEWART Radiology Department PHYS: JATINDER HairMarceloradha Spicer [address] : 1990 AGE: 28 SEX: [place], [place] [address] LOC: [place] PHONE #: [phone] EXAM DATE: 07/30/2018 STATUS: REG ER FAX #: [phone] RAD NO: Page 3 Signed Report- US PREG EVAL 1ST [id number] 00:28:00Patient Name: TERESE STEWART Unit No: [id number] EXAMS: CPT CODE: [id number] US PREG EVAL 1ST [id number] EXAM: US, US PREG 1ST TRIMTR; 07/30/2018 EXAM: US, US PREG UT TRANSVAGINAL; 07/30/2018 ClinicalIndication: . Pelvic pain. Burning with urination. Comparison: None. TECHNIQUE: Technique: Grayscale, color and Doppler transabdominal and transvaginal imaging of the pelvis was performed with standard technique. FINDINGS: Transabdominal pelvic ultrasound: Uterus is retroverted. Uterus measures 12.4 x 8.0 x 8.6 cm. A gestational sac containing pole is noted measuring up to 2.0 cm. Right ovary measures 4.3 x 3.1 x 3.2 cm. Left ovary is not visualized. A cyst in the right ovary measuring 2.3 x 2.3 x 2.0 cm, probably corpus luteum cyst. For better visualization of the gestational sac and adnexa, endovaginal pelvic ultrasound is performed. Endovaginal pelvic ultrasound: UTERUS: Uterus measures 9.2 x 5.7 x 7.9 cm. A single live intrauterine gestation is identified at 6 weeks 5 days with positive heart beat 128 bpm. Sonographic TONI is 03/20/2019. pole and yolk sac seen. A 1.5 x 1.5 x 0.9 cm heterogenous area adjacent to the gestational sac probably subchorionic bleed.. OVARIES: RIGHT: 4.1 x 2.7 x 3.3 cm. LEFT: 2.9 x 2.6 x 3.2 cm. A 2.3 x 3.1 x 2.6 cm cyst is noted in the right ovary. Normal flow is noted to the both ovaries. OTHER FINDINGS: No free fluid in [id number]. If there is further concern, followup pelvic sonography may be performed. IMPRESSION: 1. Single live intrauterine gestation at 6 weeks 5 days. heart beat at 128 bpm. 2. Small subchorionic bleed. 3. Right ovarian cyst. SL: ROSANA Cuadra [facility] NAME: [facility] Radiology Department PHYS: Fidel Hairradha Spicer [address] : 1990 AGE: 28 SEX: F [place], [place] [address] LOC: .ERS PHONE #: [phone] EXAM DATE: 07/30/2018 STATUS: REG ER FAX #: [phone] RAD NO: Page 1 Signed Report (CONTINUED) Patient Name: TERESE STEWART Unit No: [id number] EXAMS: CPT CODE: [id number] US PREG EVAL 1ST TRIMTR 34277 (Continued) at 0028 Reported and signed by: Fady Car M.D.CC: Technologist: Nancy Conley RDMS, RVT Probe: Trnscrbd D/ (0028) [id number] Orig Print D/T: S: 07/31/2018 (0032) [facility] NAME: [facility] Radiology Department PHYS: Marcelo Hairboris [address] : 1990 AGE: 28 SEX: [place], [place] [address] LOC: F.ERS PHONE #: [phone] EXAM DATE: 07/30/2018 STATUS: REG ER FAX#: [phone] RAD NO: Page 2 Signed Report Patient Name: TERESE STEWART Unit No: [id number] EXAMS:CPT CODE: [id number] US PREG EVAL 1ST TRIMTR 76129 (Continued) [facility] NAME: TERESE STEWART Radiology Department PHYS: Marcelo Osman [address] : 1990 AGE: 28 SEX: F [place], [place] [address] LOC: PriyankERS PHONE #: [phone] EXAM DATE: 07/30/2018 STATUS: REG ER FAX #: [phone] RAD NO: Page 3 Signed ReportDRUGS OF ABUSE [id number] 22:56:00* Test Item Value Reference Range Interpretation Comme nts UR COCAINE (test code = COCAU) NEGATIVE NEGATIVE DETECTION CUT OF F: 150 ng/mL UR CANNABINOIDS (test code = CANU) NEGATIVE NEGATIVE DETECTION CUT OF F: 50 ng/mL UR AMPHETAMINE (test code = AMPHU) NEGATIVE NEGATIVE DETECTION CUT OF F: 500 ng/mL UR BARBITURATE QUAL (test code = BARBQLU) NEGATIVE NEGATIVE DETECTION CUT OF F: 200 ng/mL UR BENZODIAZEPINE (test code = BENZU) NEGATIVE NEGATIVE DETECTION CUT OF F: 150 ng/mL UR OPIATES QUAL (test code = OPIAQLU) NEGATIVE NEGATIVE DETECTION CUT OF F: 100 ng/mL UR PHENCYCLIDINE (PCP) (test code = PHENCU) NEGATIVE NEGATIVE DETECTION C UT OFF: 25 ng/mL COMPREHENSIVE METABOLIC [id number] 22:02:00* Test Item Value Reference Range Interpretation Comme nts SODIUM (test code = NA) 136 mEq/L 135-145 N POTASSIUM (test code = K) 3.5 mEq/L 3.5-5.0 N CHLORIDE (test code = CL) 102 mEq/L 100-115 N CARBON DIOXIDE (test code = CO2) 24 mEq/L 22-31 N ANION GAP (test code = GAP) 13.40 10-20 N GLUCOSE (test code = GLU) 97 mg/dL 65-110 N BLOOD UREA NITROGEN (test co de = BUN) 8 mg/dL 7-18 N GLOMERULAR FILTRATION RATE ( test code = GFR) 100 ml/min >60 N CREATININE (test code = CREAT) 0.7 mg/dL 0.5-1.0 N TOTAL PROTEIN (test code = PROT) 7.3 gm/dL 6.3-8.2 N ALBUMIN (test code = ALB) 3.3 gm/dL 3.4-4.8 L CALCIUM (test code = CA) 8.4 mg/dL 8.4-10.2 N BILIRUBIN TOTAL (test code = BILT) 0.5 mg/dL 0.2-1.0 N SGOT/AST (test code = AST) 19 units/L 15-37 N SGPT/ALT (test code = ALT) 10 units/L 12-78 L ALKALINE PHOSPHATASE TOTAL ( test code = ALKP) 59 units/L 46-116 N URINALYSIS [id number] 21:57:00* Test Item Value Reference Range Interpretation Comme nts UA COLOR (test code = COLU) YELLOW YELLOW UA APPEARANCE (test code = APPU) Slightly-Cloudy CLEAR UA GLUCOSE DIPSTICK (test code = DGLUU) NEGATIVE NEG UA BILIRUBIN DIPSTICK (test code = BILU) NEGATIVE NEG UA KETONE DIPSTICK (test cod e = KETU) NEGATIVE NEG UA SPECIFIC GRAVITY (test code = SGU) 1.011 1.001-1.035 N UA BLOOD DIPSTICK (test code = AGUSTIN) NEG NEG UA PH DIPSTICK (test code = EDDIE) 6.0 5-9 UA PROTEIN DIPSTICK (test code = PROU) NEGATIVE NEG UA UROBILINIOGEN DIPSTICK (test code = URO) NEGATIVE mg/dL NEG UA NITRITE DIPSTICK (test code = HUSSEIN) NEG NEG UA LEUKOCYTE ESTERASE DIPSTICK (test code = LEUU) 1+ NEG A UA WBC (test code = WBCU) 41-50 #/hpf NONE SEEN A UA RBC (test code = RBCU) 3-5 #/hpf NONE SEEN A UA EPITHELIAL CELLS (test code = EPIU) RARE #/HPF RARE-FEW UA MUCUS (test code = MUCU) RARE NONE SEEN UA YEAST (test code = YEASTU) FEW #/hpf NONE SEEN A UR HCG [id number] 21:57:00* Test Item Value Reference Range Interpretation Comme nts UR HCG QUAL (test code = HCGQLU) POSITIVE Results verified by repeat analysis URINALYSIS [id number] 21:49:00* Test Item Value Reference Range Interpretation Comme nts UA COLOR (test code = COLU) YELLOW YELLOW UA APPEARANCE (test code = APPU) Slightly-Cloudy CLEAR UA GLUCOSE DIPSTICK (test code = DGLUU) NEGATIVE NEG UA BILIRUBIN DIPSTICK (test code = BILU) NEGATIVE NEG UA KETONE DIPSTICK (test cod e = KETU) NEGATIVE NEG UA SPECIFIC GRAVITY (test code = SGU) 1.011 1.001-1.035 N UA BLOOD DIPSTICK (test code = AGUSTIN) NEG NEG UA PH DIPSTICK (test code = EDDIE) 6.0 5-9 UA PROTEIN DIPSTICK (test code = PROU) NEGATIVE NEG UA UROBILINIOGEN DIPSTICK (test code = URO) NEGATIVE mg/dL NEG UA NITRITE DIPSTICK (test code = HUSSEIN) NEG NEG UA LEUKOCYTE ESTERASE DIPSTICK (test code = LEUU) 1+ NEG A UA WBC (test code = WBCU) 41-50 #/hpf NONE SEEN A UA RBC (test code = RBCU) 3-5 #/hpf NONE SEEN A UA EPITHELIAL CELLS (test code = EPIU) RARE #/HPF RARE-FEW UA MUCUS (test code = MUCU) RARE NONE SEEN UA YEAST (test code = YEASTU) #/hpf NONE SEEN UR HCG [id number] 21:49:00* Test Item Value Reference Range Interpretation Comme nts UR HCG QUAL (test code = HCGQLU) POSITIVE Results verified by repeat analysis URINALYSIS [id number] 21:48:00* Test Item Value Reference Range Interpretation Comme nts UA COLOR (test code = COLU) YELLOW YELLOW UA APPEARANCE (test code = APPU) Slightly-Cloudy CLEAR UA GLUCOSE DIPSTICK (test code = DGLUU) NEGATIVE NEG UA BILIRUBIN DIPSTICK (test code = BILU) NEGATIVE NEG UA KETONE DIPSTICK (test cod e = KETU) NEGATIVE NEG UA SPECIFIC GRAVITY (test code = SGU) 1.011 1.001-1.035 N UA BLOOD DIPSTICK (test code = AGUSTIN) NEG NEG UA PH DIPSTICK (test code = EDDIE) 6.0 5-9 UA PROTEIN DIPSTICK (test code = PROU) NEGATIVE NEG UA UROBILINIOGEN DIPSTICK (test code = URO) NEGATIVE mg/dL NEG UA NITRITE DIPSTICK (test code = HUSSEIN) NEG NEG UA LEUKOCYTE ESTERASE DIPSTICK (test code = LEUU) 1+ NEG A UA WBC (test code = WBCU) 41-50 #/hpf NONE SEEN A UA RBC (test code = RBCU) 3-5 #/hpf NONE SEEN A UA EPITHELIAL CELLS (test code = EPIU) RARE #/HPF RARE-FEW UA MUCUS (test code = MUCU) RARE NONE SEEN UA YEAST (test code = YEASTU) #/hpf NONE SEEN UR HCG [id number] 21:48:00* Test Item Value Reference Range Interpretation Comme nts UR HCG QUAL (test code = HCGQLU) CBC W/AUTO [id number] 21:45:00* Test Item Value Reference Range Interpretation Comme nts WHITE BLOOD CELL (test code = WBC) 9.4 K/mm3 6.6-12.1 N RED BLOOD CELL (test code = RBC) 4.14 M/mm3 3.45-5.01 N HEMOGLOBIN (test code = HGB) 12.8 g/dL 10.7-13.9 N HEMATOCRIT (test code = HCT) 38.7 % 32.1-42.1 N MEAN CELL VOLUME (test code = MCV) 94 fL 84.1-94.8 N MEAN CELL HGB (test code = MCH) 30.9 pg 27-35 N MEAN CELL HGB CONCETRATION ( test code = MCHC) 33.1 gm/dL 32.2-34.1 N RED CELL DISTRIBUTION WIDTH (test code = RDW) 13.7 % 12.4-16.5 N PLATELET COUNT (test code = PLT) 187 K/mm3 133-385 N IMMATURE PLATELET FRACTION ( test code = IPF) 0.0 % 0.0-10.8 N MEAN PLATELET VOLUME (test c ode = MPV) 11.6 fl 9.1-12.7 N NEUTROPHIL % (test code = NT%) 65.6 % 56.5-79.4 N LYMPHOCYTE % (test code = LY%) 27.9 % 14.3-34.3 N MONOCYTE % (test code = MO%) 5.3 % 5.1-10.4 N EOSINOPHIL % (test code = EO%) 0.7 % 0.1-3.0 N BASOPHIL % (test code = BA%) 0.3 % 0.1-1.0 N NEUTROPHIL # (test code = NT#) 6.1 K/mm3 LYMPHOCYTE # (test code = LY#) 2.6 K/mm3 MONOCYTE # (test code = MO#) 0.5 K/mm3 EOSINOPHIL # (test code = EO#) 0.07 K/mm3 BASOPHIL # (test code = BA#) 0.0 K/mm3 RBC MORPHOLOGY REQUIRED (tony t code = RBCM) NORMAL NORMAL PLATELET MORPHOLOGY REQUIRED (test code = PLTMR) NORMAL NORMAL Notes Date/Time Note Provider Source 2023-12-01 01:50:00 [facility] ([facility]) EMERGENCY PROVIDER REPORT REPORT#:[id number] REPORT STATUS: Signed DATE:12/01/23 TIME: 0150 PATIENT: TERESE STEWART UNIT #: [id number] ROOM/BED: AGE: 33 SEX: F PCP PHYS: Brandon Dodd MD SERVICE AUTHOR: Bobbi Arora MD * ALL edits or amendments must be made on the electronic/computer document * HPI- Female Free Text HPI Notes Free Text HPI Notes 11 weeks complaining of lower abdominal pain and cramping. Burning with urination, no bleeding General Confirmed Patient Yes Patient Type New patient Initial Greet Date/Time 11/30/23 2202 PCP BRANDON DODD MD Presentation Chief Complaint Abdominal pain, Urination painful Reason for ED Visit (v.PCP/UC) WITH ABDOMINAL PAIN Hx Obtained From Patient )( Sudden in Onset? Yes Onset Occurred Today Symptom Duration Since onset Progression since Onset Rapidly worsening Risk- Female Risk Stratification Ectopic Risk factors reviewed Review of Systems ROS Statements Complete sys rev neg except as marked. Past Medical History - Adult Stated Complaint PREG 11 WKS ABD PAIN AND CRAMPING, PAINFUL URINE Allergies Coded Allergies: No Known Allergies (03/13/19) Home Medications Active Scripts Hydrocodone/Acetaminophen (HYDROcodone/APAP 5/325) 1 TAB PO Q4H PRN severe pain Hydrocodone/Acetaminophen (HYDROcodone/APAP 5/325) 1 TAB PO Q4H PRN severe pain #25 TAB Prov: Brandon Dodd 03/14/19 IBUPROFEN (MOTRIN) 600 MG PO Q6H PRN pain IBUPROFEN (MOTRIN) 600 MG PO Q6H PRN pain #50 TAB Prov: YousifBrandon 03/14/19 DOCUSATE SODIUM (COLACE) 100 MG PO 0900,2099 DOCUSATE SODIUM (COLACE) 100 MG PO 0900,2100 #20 CAP Prov: YousifBrandon 03/14/19 Reported Medications PNV/FE FUM/FA ( MULTIVITAMIN) 1 TAB PO DAILY Review of Nursing Notes Rev avail, and agree Physical Exam Vital Signs Vital Signs First Documented: Result Date Time Pulse Ox 98 11/29 220 B/P 114/79 / 2204 B/P Mean 90 11/29 2204 O2 Delivery Room air 11/30 2203 Temp 36.9 11/29 220 Pulse 85 11/29 2204 Resp 16 11/30 2203 Last Documented: Result Date Time Pulse Ox 98 11/29 2204 B/P 114/79 11/29 2204 B/P Mean 90 11/29 2204 O2 Delivery Room air 11/30 2203 Temp 36.9 11/29 2204 Pulse 85 11/29 2204 Resp 16 11/30 2203 Review of Vital Signs Reviewed, Vital signs normal Focused PE General/Const General/Const Awake, Alert, No acute distress, Well appearing, Well developed , Well hydrated Resp/Chest Respiratory/Chest Breath sounds NL, Breath sounds = bilat, No respiratory distress Cardiovascular Cardiovascular Heart rate NL, Regular rhythm, Heart sounds NL Abdomen/GI Abdomen/GI Soft, Non-tender, BS normoactive MS Back Back Atraumatic (XXXXXXXXX), Inspection NL, Full range of motion, Painless range of motion Skin Skin No rash Genitourinary General Exam deferred Interpretation Diagnostics Lab Results Interpretation Results Laboratory Tests 12/01/236: [Embedded Image Not Available] Laboratory Tests: 11/30 6 Hematology WBC (6.5 - 12.3 K/mm3) 7.4 RBC (3.51 - 4.69 M/mm3) 4.36 Hgb (10.1 - 13.8 g/dL) 13.7 Hct (32.5 - 41.8 %) 39.8 MCV (84.6 - 96.6 fL) 91.3 MCH (27.3 - 33.9 pg) 31.4 MCHC (32.0 - 34.2 gm/dL) 34.4 H RDW (12.2 - 16.3 %) 14.1 Plt Count (134 - 363 K/mm3) 213 MPV (9.2 - 12.7 fL) 11.3 Neut % (Auto) (57.9 - 77.3 %) 58.9 Lymph % (Auto) (14.5 - 29.7 %) 32.6 H Foster % (Auto) (3.6 - 10.2 %) 6.5 Eos % (Auto) (0.0 - 3.0 %) 1.1 Baso % (Auto) (0.1 - 0.9 %) 0.5 Neut # (Auto) (K/mm3) 4.4 Lymph # (Auto) (K/mm3) 2.4 Foster # (Auto) (K/mm3) 0.5 Eos # (Auto) (K/mm3) 0.08 Baso # (Auto) (K/mm3) 0.0 Urines Urine Color (YELLOW) YELLOW Urine Appearance (CLEAR) CLEAR Urine pH (5 - 9) 6.0 Ur Specific Klemme (1.001 - 1.035) 1.016 Urine Protein (NEG) NEGATIVE Urine Glucose (UA) (NEG) NEGATIVE Urine Ketones (NEG) NEGATIVE Urine Blood (NEG) NEG Urine Nitrite (NEG) NEG Urine Bilirubin (NEG) NEGATIVE Urine Urobilinogen (NEG mg/dL) NEGATIVE Ur Leukocyte Esterase (NEG) NEG Urine RBC (NONE SEEN #/hpf) 0-2 Urine WBC (NONE SEEN #/hpf) 0-2 Ur Epithelial Cells (RARE - FEW #/HPF) RARE Urine Mucus (NONE SEEN) RARE Recent Impressions: ULTRASOUND - US PREG UT TRANSVAGINAL 11/30 2339 Report Impression - Status: SIGNED Entered: 12/01/202337 IMPRESSION: 1. Viable intrauterine with gestational age of 10 weeks 5 days. 2. TONI by ultrasound 06/22/2024. The systolic Impression By: [email or web address] - Marc Carnes MD ULTRASOUND - DUP AB/PEL/SC/LTD 11/30 2339 Report Impression - Status: SIGNED Entered: 12/01/202337 IMPRESSION: 1. Viable intrauterine with gestational age of 10 weeks 5 days. 2. TONI by ultrasound 06/22/2024. The systolic Impression By: Curtis Carnes MD ULTRASOUND - US PREG EVAL 1ST TRIMTR 11/29 2340 Report Impression - Status: SIGNED Entered: 12/01/2023 0038 IMPRESSION: 1. Viable intrauterine with gestational age of 10 weeks 5 days. 2. TONI by ultrasound 06/22/2024. The systolic Impression By: Curtis Carnes MD Re-Evaluation MDM Re-Evaluation/Progress Re-Evaluation/Progress Text/Dict Note Reviewed lab results and U/S results with patient. Will follow-up with her OBGYN ED Course Medication(s) Ordered Medication(s) Ordered: Central Nervous System Agents Sig/Alicia Start time Last Medication Dose Route Stop Time Status Admin Acetaminophen 1,000 MG X1ED STA 11/29 2310 DC 11/30 PO 11/29 2311 0147 Patient Discharge Departure Vital Signs/Condition Vital Signs First Documented: Result Date Time Pulse Ox 98 11/29 2204 B/P 114/79 11/29 2204 B/P Mean 90 11/29 2204 O2 Delivery Room air 11/29 2204 Temp 36.9 11/29 2204 Pulse 85 11/29 2204 Resp 16 11/29 2204 Last Documented: Result Date Time Pulse Ox 98 11/29 2204 B/P 114/79 11/29 2204 B/P Mean 90 11/29 2204 O2 Delivery Room air 11/29 2204 Temp 36.9 11/29 2204 Pulse 85 11/29 2204 Resp 16 11/29 2204 All vital signs available at the time of this entry have been reviewed. Condition Stable, Improved Clinical Impression Clinical Impression Primary Impression: Abdominal pain during in first trimester Secondary Impressions: Dysuria Disposition Decision Discharge )( Discharged to Home Yes )( Time 0214 )( Date 12/01/23 Discharge/Care Plan Counseled Regarding Diagnosis, Imaging studies, Need for follow-up, When to return to ED (Auto) Prescriptions Current Visit Scripts ONDANSETRON ODT (ZOFRAN ODT) 4 MG PO Q6H PRN PRN NAUSEA/VOMITING ONDANSETRON ODT (ZOFRAN ODT) 4 MG PO Q6H PRN PRN NAUSEA/VOMITING #15 TABS Patient Instructions Bleeding During Early Referrals Provider Referral: Brandon Dodd MD Follow-Up: 2-3 Days Address: [address] [place] [address] Discharge Note I have spoken with the patient and/or caregivers. I have explained the patient's condition, diagnoses and treatment plan based on the information available to me at this time. I have answered the patient's and/or caregiver's questions and addressed any concerns. The patient and/or caregivers have as good an understanding of the patient's diagnosis, condition and treatment plan as can be expected at this point. The vital signs have been stable. The patient's condition is stable and appropriate for discharge from the emergency department. The patient will pursue further outpatient evaluation with the primary care physician or other designated or consulting physician as outlined in the discharge instructions. The patient and/or caregivers are agreeable to this plan of care and follow-up instructions have been explained in detail. The patient and/or caregivers have received these instructions in written format and have expressed an understanding of the discharge instructions. The patient and/or caregivers are aware that any significant change in condition or worsening of symptoms should prompt an immediate return to this or the closest emergency department or a call to 911. at 0216 RPT #:[id number] END OF REPORT [facility] 2023-01-23 09:07:37 Formatting of this n ote might be different from the original. Patient informed of results and to continue antibiotics prescribed at last visit, verbalized understanding. On license of [facility] 2023-01-23 09:06:52 Formatting of this n ote might be different from the original. See other encounter. On license of [facility] 2023-01-22 16:51:13 Formatting of this n ote might be different from the original. Terese Stewart is a 32 year old female Pt requesting call back, returned missed call regarding results. Xin Thompson [facility] 2023-01-22 16:30:11 Formatting of this n ote might be different from the original. Called patient no answer unable to leave v mail Please advise her that her results are positive for a uti, she should complete the meds that I sent for her on her last visit, drink plenty of water, and practice good perineal hygiene. WILFRIDO Briseno 01/22/2023 4:34 PM [facility] 2019-03-16 11:39:00 [facility] ([facility]) OB Postpart Progr Note REPORT#:[id number] REPORT STATUS: Signed DATE:03/16/19 TIME: 1139 PATIENT: TERESE STEWART UNIT #: [id number] ROOM/BED: [address] : [birth year] AGE: 28 SEX: F ATTEND: Brandon Dodd MD ADM AUTHOR: Brittany Mcwilliams MD * ALL edits or amendments must be made on the electronic/computer document * Subjective Subjective Admission EGA (wks/days): 38 weeks (6d) EGA at delivery (wks/days): 38 weeks (6d) Status/day: post operative (3) Patient reports: Patient reports: No: complaints. Objective Nursing Documentation Review Nursing data: The data set between the solid lines has been imported from nursing documentation. Any exceptions have been noted below under Provider comments. Feeding preference: Provider comments on imported nursing data: [] General VS: Vital Signs Date Temp Pulse Resp B/P B/P Mean Pulse Ox FiO2 03/15 98.2-98.6 86-100 18-20 119-120/74-83 Last Documented: Result Date Time B/P 120/83 03/15 2017 Temp 98.6 03/15 2017 Pulse 86 03/15 2017 Resp 18 03/15 2017 B/P Mean 82.0 03/13 1430 Pulse Ox 100 03/13 1430 Patient Weight Weight (lb): 178 Weight (oz): Weight (kg): 80.739 Physical Exam Lungs: no increased wob Neuro: Exam: alert, oriented x3, normal speech Incision site: well approximated edges, no drainage, no inflammation, pink drainage noted on steris, none active, drying. Fundus: firm, below the umbilicus Lower extremities: Edema: trace Diagnosis, Assessment Plan Diagnosis, Assessment Plan Assessment: nml progress Plan: routine care, discharge today, s/p circ at 1139 RPT #:[id number] END OF REPORT [facility] 2019-03-15 12:28:00 [facility] ([facility]) OB Postpart Progr Note REPORT#:[id number] REPORT STATUS: Signed DATE:03/15/19 TIME: 1228 PATIENT: TERESE STEWART UNIT #: [id number] ROOM/BED: [address] : [birth year] AGE: 28 SEX: F ATTEND: Brandon Dodd MD ADM AUTHOR: Dony Boyer MD * ALL edits or amendments must be made on the electronic/computer document * Subjective Subjective Admission EGA (wks/days): 38 weeks (6d) EGA at delivery (wks/days): 38 weeks (6d) Status/day: post operative (2) Patient reports: Patient reports: Yes: normal lochia, pain management effective, tolerating po well, voiding well, tolerating ambulation. No: complaints. Objective Nursing Documentation Review Nursing data: The data set between the solid lines has been imported from nursing documentation. Any exceptions have been noted below under Provider comments. Feeding preference: Provider comments on imported nursing data: [] General VS: Vital Signs Date Temp Pulse Resp B/P B/P Mean Pulse Ox FiO2 03/14-03/15 36.7-37.1 80-90 18-20 103-114/67-76 Last Documented: Result Date Time B/P 113/75 03/15 0800 Temp 36.7 03/15 0800 Pulse 80 03/15 0800 Resp 20 03/15 0800 B/P Mean 82.0 03/13 1430 Pulse Ox 100 03/13 1430 Patient Weight Weight (lb): 178 Weight (oz): Weight (kg): 80.739 Physical Exam Lungs: no increased wob Neuro: Exam: alert, oriented x3, normal speech Incision site: well approximated edges, no drainage, no inflammation, pink drainage noted on steris, none active, drying. Fundus: firm, below the umbilicus Lower extremities: Edema: trace Diagnosis, Assessment Plan Diagnosis, Assessment Plan Assessment: nml progress Plan: routine care, discharge tomorrow, s/p circ at 1228 RPT #:[id number] END OF REPORT [facility] 2019-03-14 09:10:00 [facility] ([facility]) OB Postpart Progr Note REPORT#:[id number] REPORT STATUS: Signed DATE:03/14/19 TIME: 909 PATIENT: TERESE STEWART UNIT #: [id number] ROOM/BED: [address] : [birth year] AGE: 28 SEX: F ATTEND: Brandon Dodd MD ADM AUTHOR: Brandon Dodd MD * ALL edits or amendments must be made on the electronic/computer document * Subjective Subjective Admission EGA (wks/days): 38 weeks (6d) EGA at delivery (wks/days): 38 weeks (6d) Status/day: post operative (1) Patient reports: Patient reports: Yes: normal lochia, pain management effective, tolerating po well, voiding well, voiding without pain, tolerating ambulation, flatus. No: complaints. Objective Nursing Documentation Review Nursing data: The data set between the solid lines has been imported from nursing documentation. Any exceptions have been noted below under Provider comments. Feeding preference: Provider comments on imported nursing data: [] General VS: Vital Signs Date Temp Pulse Resp B/P B/P Mean Pulse Ox FiO2 03/13-03/14 97.6-98.5 70-98 16-20 102-133/67-89 82.0-106.0 100 Last Documented: Result Date Time B/P 111/79 03/14 0404 Temp 98.3 03/14 0404 Pulse 98 03/14 0404 Resp 18 03/14 0404 B/P Mean 82.0 03/13 1430 Pulse Ox 100 03/13 1430 Patient Weight Weight (lb): 178 Weight (oz): Weight (kg): 80.739 Physical Exam Lungs: no increased wob Neuro: Exam: alert, oriented x3, normal speech Incision site: well approximated edges, no drainage, no inflammation, pink drainage noted on steris, none active, drying. Fundus: firm, below the umbilicus Lower extremities: Edema: trace Result Findings/data: Laboratory Tests: 03/14 0426 Hematology Hgb (10.7 - 13.9 g/dL) 10.5 L Hct (32.1 - 42.1 %) 33.7 Diagnosis, Assessment Plan Diagnosis, Assessment Plan Free text A P: 28 yo P2032 s/p RLTCS @ 38w6d presented with SROM and early labor w/ preg c/b C/ Sx2, RNI, hx of ALICIA, hx of RPL, hx of STI/CT, insufficient pnc between 18-24w. POD#1 # Postop milestones - epidural/doyle out - Hct 33>33 # IWB - male- desires circ, planned today # O+/ RNI/ s/p tdap/ desires minipill - MMR pp - flu shot pp # Plan dc POD#3, desires dc POD#3 if possible MD Paty Plan: routine care, circumcision today at 0914 RPT #:[id number] END OF REPORT [facility] 2019-03-13 03:48:00 [facility] ([facility]) DT Discharge Note REPORT#:[id number] REPORT STATUS: Signed DATE:03/13/19 TIME: 347 PATIENT: TERESE STEWART UNIT #: [id number] ROOM[facility]BED: [facility] : 91 AGE: 28 SEX: F ATTEND: Brandon Dodd MD ADM AUTHOR: Brandon Dodd MD * ALL edits or amendments must be made on the electronic/computer document * DISCHARGE NOTE Discharge Note: DISCHARGE SUMMARY Admit Date: 03/13/2019 Discharge Date: 03/16/2019 Attending MD: Brandon Dodd MD Final Diagnoses: 1. 28 yo P2032 @ 38w6d presents with SROM and labor with history of 2 prior c- sections 2. Rubella nonimmune 3. hx of subchorionic hemorrhage 4. 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 hx of chlamydia in 2009 6. insufficient pnc between 18-24w 7. RLTCS 8. Benign course HPI: This is a 28 yo P2032 @ 38w6d presents with SROM and labor with history of 2 prior c-sections. For more information, please refer to the admission note. Hospital course: The patient was admitted and begun on IVF and EFM. She was brought to the OR for an uncomplicated RLTCS. Findings: A liveborn M with Apgars of 8/9 and weight 3120 grams. Normal anatomy of the uterus, tubes, and ovaries. Somewhat thin lower uterine segment but not a window. Mild scarring of rectus to overlying fascia. no Adhesions of omentum noted. Bladder slightly higher on lower uterine segment, taken down with bladder flap. EBL: 600cc Fluids: 2400cc UOP: 400cc Complications: none Condition: Patient stable in recovery room and at bedside. The patient was taken to the unit in stable condition. Her course was uncomplicated and she was sent home with the ability to ambulate, spontaneously void, and eat without difficulty. There were no signs or symptoms of infection or hemorrhage at time of discharge. Disposition: The patient was discharged home on PPD/POD3 with instructions to limit heavy lifting to <15 lb for 2 weeks, insert nothing in the vagina for 6 weeks including tampons, intercourse, and douching, and to not drive while using narcotics. Pt was advised to call her MD for T>100.4, increased vaginal bleeding >1 pad/hr, foul lochia, increased breast tenderness or redness, shortness of breath or chest pain, increased incisional pain, redness, or discharge, increased abdominal pain or leg pain, or any other concerns. Patient was sent home on a regular diet. Discharge medications included ibuprofen, docusate, norco. Pt advised to follow up in 2 weeks time as well as in 6 weeks time for her check with her physician at 2052 RPT #:[id number] END OF REPORT [facility] 2019-03-13 03:42:00 [facility] ([facility]) DT Operative Note REPORT#:[id number] REPORT STATUS: Signed DATE:03/13/19 TIME: 0342 PATIENT: TERESE STEWART UNIT #: [id number] ROOM/BED: [facility] : 91 AGE: 28 SEX: F ATTEND: Brandon Dodd MD ADM AUTHOR: Brandon Dodd MD * ALL edits or amendments must be made on the electronic/computer document * Operative Report Operative Note Note: OPERATIVE NOTE Preoperative Dx 1. 28 yo P2032 @ 38w6d presents with SROM and labor with history of 2 prior c- sections 2. Rubella nonimmune 3. hx of subchorionic hemorrhage 4. 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 hx of chlamydia in 2009 6. insufficient pnc between 18-24w Postoperative Dx 1. same as above 2. RLTCS Procedure: Repeat low transverse section via Pfannensteil Surgeon: Brandon Dodd MD Territory Account Executive: Marla Rosario MD Anesthesia: Epidural Findings: A liveborn M with Apgars of 8/9 and weight 3120 grams. Normal anatomy of the uterus, tubes, and ovaries. Somewhat thin lower uterine segment but not a window. Mild scarring of rectus to overlying fascia. no Adhesions of omentum noted. Bladder slightly higher on lower uterine segment, taken down with bladder flap. EBL: 600cc Fluids: 2400cc UOP: 400cc Complications: none Condition: Patient stable in recovery room and infant at bedside. Indications: 28 yo P2032 @ 38w6d presents with SROM and labor with history of 2 prior c-sections Procedure: Consent was obtained. The patient was taken to the operating room where epidural anesthesia was found to be adequate. She was prepared and draped in the normal sterile fashion in the dorsal supine position with a leftward tilt. Doyle catheter had been placed and SCDs were on. Timeout performed per hospital protocol. A Pfannensteil skin incision was made with the scalpel and carried through to the underlying layer of fascia with the Bovie. The fascia was incised in the midline and the incision extended laterally with the Rouse scissors. The superior aspect of the fascial incision was then grasped with the clamps, elevated, and the underlying rectus muscles dissected off bluntly and with Rouse scissors. Attention was then turned to the inferior aspect of this incision which, in a similar fashion, was grasped, tented up, and the rectus muscle dissected off. The rectus muscles were the in the midline, the peritoneum identified and entered bluntly. The peritoneal incision was stretched laterally with good visualization of the bladder. The bladder blade was then reinserted and the lower uterine segment incised in a transverse fashion with the scalpel after a bladder flap was performed. The hysterotomy was extended bluntly with superior and inferior stretching. The bladder blade was removed and the delivered atraumatically in a cephalic presentation. The cord was clamped and cut and the was handed off to the team. The placenta was removed with uterine massage, the uterus exteriorized and cleared of all clots and debris.Normal anatomy of uterus, tubes, and ovaries were noted at this time. The hysterotomy was repaired with 0-vicryl in a running locked fashion. A second layer of the same was used to imbricate the incision and excellent hemostasis was noted after several small Bovie cauterizations. The uterus was returned to the abdomen and the gutters were cleared of all clots and debris. Noting continued excellent hemostasis, the peritoneum was reapproximated and fascia was re-approximated with 0-vicryl in a running fashion. The subcutaneous layer was closed with 3-0 plain gut. The skin was closed with suture and steris as well as a bandage was applied. The patient tolerated the procedure well. Sponge, lap, needle counts were correct times two. Ancef had been given within 30 minutes prior to the procedure. The patient was taken to the recovery room in stable condition. Dr. Dodd was present and scrubbed for the entire length of the procedure. at 0346 RPT #:[id number] END OF REPORT [facility] 2019-03-13 03:40:00 [facility] ([facility]) OB Delivery Note REPORT#:[id number] REPORT STATUS: Signed DATE:03/13/19 TIME: 034 PATIENT: TERESE STEWART UNIT #: [id number] ROOM/BED: [facility] : 91 AGE: 28 SEX: F ATTEND: Brandon Dodd MD ADM AUTHOR: Brandon Dodd MD * ALL edits or amendments must be made on the electronic/computer document * OB Delivery Pre-delivery GBS status: GBS status: negative Elgin evaluation at delivery: NRP certified personnel Admission EGA (wks/days): 38 weeks (6d) EGA at delivery (wks/days): 38 weeks (6d) General VS: Last Documented: Result Date Time Temp 98.3 03/13 0058 Resp 18 03/13 0021 Membranes: SROM ROM date: 03/12/19 ROM time: 2044 Amniotic fluid: clear Baby A Information Baby A information Delivery date: 03/13/19 Delivery time: 258 status: live born Wt of baby (grams): 3120 Wt of baby (lbs/oz): 11/29 Gender: male 1 minute: 8 5 minutes: 9 Presentation: vertex Nuchal cord Baby A Nuchal cord: yes (loose and reduced) Delivery section Abdominal incision: Pfannenstiel Primary indication: previous Priority: urgent, indicated (add on) Antibiotic prior to incision: 1 dose )(SCDs applied activated: Yes Incision: low transverse Hemorrhage: no Uterine scar: intact Consent: indication discussed, questions answered, pt consent to op delivery Mother's condition: mother stable Blood Loss/Details EBL (ml's): 600 at 0342 RPT #:[id number] END OF REPORT [facility] 2019-03-13 00:39:00 [facility] ([facility]) OB Admission / H P REPORT#:[id number] REPORT STATUS: Signed DATE:03/13/19 TIME: 38 PATIENT: TERESE STEWART UNIT #: [id number] ROOM/BED: : 91 AGE: 28 SEX: F ATTEND: Brandon Dodd MD ADM DT: AUTHOR: Brandon Dodd MD * ALL edits or amendments must be made on the electronic/computer document * OB Admission H P Hx Chief complaint: suspected ruptured memb, uterine contractions HPI: 28 yo P2032 @ 38w6d presents with SROM with ctx changed from 1 to 3cm. Preg c/b 1. C/S x2 2. RNI 3. hx of ALICIA 4. 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 hx of STI/CT in 2009 6. insufficient pnc between 18-24w Labs: Blood type: O Rh: positive Rubella: non-immune Hepatitis B: negative HIV: negative STD: negative Syphilis: currently negative GBS: negative Genetic testing: normal sequential screen Notes: 07/26: O+/neg ab, hct 35.7, plt 193, nl hg electro, RPR NR, neg hep b, neg hep c, neg hiv, rubella NONIMMUNE, nl tsh, hga1c 4.9, neg gcct, neg ua/ucx, neg pap, neg lupus anticoag, neg anti b2, neg anti cardiolipin, prolonged PT/PTT 08/05: nl pt/ptt, cmp 09/12: wht s=d, measuring 13w3d edc 03/17/19. low lying placenta 09/17: fUS 13w4d NT1.8mm. CL 4.6cm. posterior placenta, nl 1SS 10/09: nl 2ss 10/24: fUS 18w6d. s=d, CL 4.1cm. vertex, post placenta, nl shari. 12/23: hct 34.2, [id number], hiv/rpr neg, wm neg, 1hgtt 78, ucx 10-20 ecoli 02/25: neg gbs Past medical history: denies PMH Past surgical history: (x2) Social history: , no alcohol use, no tobacco use, no drug use Medications: Home Medications: PNV/FE FUM/FA ( MULTIVITAMIN) 1 TAB PO DAILY Allergies Coded Allergies: No Known Allergies (03/13/19) Review of Systems : Reports: pelvic pain, , vaginal discharge. All systems rev neg: except as marked Objective General VS: Patient Weight Weight (lb): Weight (oz): Weight (kg): Physical Exam HEENT: normocephalic w/o injury Lungs: no increased wob Neuro: Exam: alert, oriented x3, normal speech Abdomen: gravid, soft, no abnormal tenderness, no guarding Membranes: Membranes: SROM ROM date: 03/12/19 ROM time: 2029 Amniotic fluid: clear Lower extremities: Edema: trace Baby A: Baby A baseline: 125 bpm Baby A variability: moderate 6-25 bpm Baby A decelerations: none Diagnosis, Assessment Plan Diagnosis, Assessment Plan Free Text A P: 28 yo P2032 @ 38w6d presents with SROM with early labor w/ preg c/b C/Sx2, RNI, hx of ALICIA, hx of RPL, hx of STI/CT, insufficient pnc between 18-24w. # h/o C/S x2 - SROM 03/12 @ 2029 with early labor (changed from 1 to 3 cm) - to OR for RLTCS # fwb - gbs neg - male- desires circ # O+/ RNI/ s/p tdap/ desires minipill - MMR pp - flu shot pp # Admit to lnd, to OR MD Paty at 0048 RPT #:[id number] END OF REPORT [facility] 2019-03-10 10:02:00 [facility] ([facility]) DT History Physical REPORT#:[id number] REPORT STATUS: Signed DATE:03/10/19 TIME: 1001 PATIENT: TERESE STEWART UNIT #: [id number] ROOM/BED: : 91 AGE: 28 SEX: F ATTEND: Brandon Dodd MD ADM DT: AUTHOR: Brandon Dodd MD * ALL edits or amendments must be made on the electronic/computer document * History Physical History Physical ILAI Triage Note S: 28 yo @ 38w3d presents for ctx q 20 min apart, mild, with some brown /pink discharge yesterday. Had sex 2 days ago. +FM, - LOF (no large gush of fluid or persistent clear leakage of fluid), - VB now. Preg c/b 1. 2 prior C/S 2. RNI 3. ALICIA at 7w, resolved 4. Hx of miscarriages w/ neg APS testing 5. Hx of Ct in 2009 6. Insufficient PNC between 18-24w. 12 point ROS negative except above OB: 07/26: O+/neg ab, hct 35.7, plt 193, nl hg electro, RPR NR, neg hep b, neg hep c, neg hiv, rubella NONIMMUNE, nl tsh, hga1c 4.9, neg gcct, neg ua/ucx, neg pap, neg lupus anticoag, neg anti b2, neg anti cardiolipin, prolonged PT/PTT 08/05: nl pt/ptt, cmp 09/12: wht s=d, measuring 13w3d edc 03/17/19. low lying placenta 09/17: fUS 13w4d NT1.8mm. CL 4.6cm. posterior placenta, nl 1SS 10/09: nl 2ss 10/24: fUS 18w6d. s=d, CL 4.1cm. vertex, post placenta, nl shari. 12/23: hct 34.2, [id number], hiv/rpr neg, wm neg, 1hgtt 78, ucx 10-20 ecoli 02/25: neg gbs PMH: Hx of CT and RPL PSH: CSx2 Meds: PNV A: none FHx: Diabetes S: no T/E/D O: Last Documented: Result Date Time B/P Mean 98.0 03/10 818 B/P 126/80 03/10 818 Temp 98.3 03/10 818 Pulse 100 03/10 818 Resp 16 03/10 818 Gen: NAD/AAOx3 HEENT: NC/AT Chest: no increased wob Abd: soft, gravid, NT/ND Ext: no TTP : sve by RN, 1cm at outer os but unsure inner os as pt did not tolerate well, 50%/-2. No blood on glove, no e/o rupture FHT: 135 bpm, mod den, + accels, no decels, ctx q20 min. A/P:28 yo @ 38w3d presents with ctx w/o e/o labor - VB/brown d/c most likely due to sex. - /-2 (however did not tolerate exam very well, cervix high), unchanged on 2nd exam - category 1 tracing - no e/o labor, PPROM - plan RLTCS on Sunday - discussed f/u in clinic this week PRN. - gave ob precautions - to do her preop visit with anes at [facility] this week prior to sunday MD Paty at 1113 RPT #:[id number] END OF REPORT [facility] 2019-02-17 23:15:00 [facility] ([facility]) EMERGENCY PROVIDER REPORT REPORT#:[id number] REPORT STATUS: Signed DATE:02/17/19 TIME: 2315 PATIENT: TERESE STEWART. UNIT #: [id number] ROOM/BED: AGE: 28 SEX: F PCP PHYS: Brandon Dodd MD SERVICE AUTHOR: Jerica Keith MD * ALL edits or amendments must be made on the electronic/computer document * ILIA History Chief complaint: uterine contractions HPI: 28 yo at 35 3/7 weeks presents with c/o contractions since . Initially contractions q 5 min and last 45-60 sec. Took a warm bath and drank fluids with some improvement and contractions now q 10 min and less intense. No bleeding. Possible leaking of fluid since 1999. +FM history: : 6 Term: 2 Abortus: 3 Living children: 2 Previous : low uterine trans incis Number of prev : 2 Indication for prior : abnormal FHR tracing Current : EGA (weeks/days): 35 weeks (3/7 weeks) Past medical history: denies PMH Past surgical history: Social history: no alcohol use, no tobacco use, no drug use Medications: Home Medications: Medication Dose/Rte/Freq Days Qty Entered Last Max Daily Dose Reviewed PNV/FE FUM/FA 1 TAB PO DAILY 09/11/13 ( MULTIVITAMIN) 1140 Strength: 1 TAB TAB Allergies Coded Allergies: No Known Allergies (09/12/18) Review of Systems All systems rev neg: except as marked Objective General VS: Last Documented: Result Date Time B/P Mean 89.0 02/17 2115 B/P 120/73 / 2115 Pulse 103 /2114 Vital Signs Date Temp Pulse Resp B/P B/P Mean Pulse Ox FiO2 02/17 103 120/73 89.0 Patient Weight Weight (lb): Weight (oz): Weight (kg): 77.120646 Physical Exam HEENT: normocephalic w/o injury Cardiac: normal rhythm Lungs: clear to auscultation Neuro: Exam: alert, oriented x3, normal speech Abdomen: gravid, soft, no abnormal tenderness Uterine activity: Monitor: toco Frequency (description): rare Cervical/ exam: Dilatation (cm): 0 - closed Effacement (%): 0 station: - 4 presentation: cephalic FHR evaluation: Baseline: 140 bpm Variability: moderate 6-25 bpm Accelerations: 15 X 15 Decelerations: none FHR category: category 1 Membranes: Membranes: Intact Lower extremities: Edema: none Result Results: no new labs (amnisure negative) Diagnosis, Assessment Plan Diagnosis, Assessment Plan Problem List/A P: 1. uterine contractions in third trimester, antepartum 2. Previous section complicating Free Text A P: 28 yo at 35 3/7 weeks with 2 previous cesareans. No evidence of labor or rupture of membranes. Only rare contraction on monitor. Pt reassured regarding findings. FHT category 1 D/C home. F/u as scheduled. Return prn for bleeding, worsening contractions leaking fluid or decreased movement. Discussed kick counts at 2324 RPT #:[id number] END OF REPORT [facility] 2018-09-12 01:27:00 [facility] ([facility]) EMERGENCY PROVIDER REPORT REPORT#:[id number] REPORT STATUS: Signed DATE:09/12/18 TIME: 0127 PATIENT: TERESE STEWART UNIT #: [id number] ROOM/BED: AGE: 28 SEX: F PCP PHYS: Brandon Dodd MD SERVICE AUTHOR: Claudia Finn MD * ALL edits or amendments must be made on the electronic/computer document * HPI-Preg Under 20 Weeks General Confirmed Patient Yes Initial Greet Date/Time 09/12/[address] Dodd Presentation Chief Complaint back pain and pelvic pressure Context: Known 1st trim , (6), Para (2), Miscarriages (2) Hx Obtained From Patient Onset Occurred Just prior to arrival Symptom Duration Since onset Progression since Onset Waxes and wanes Location Abdomen lower, Lumbar Quality Aching Radiation No: None. Severity: Onset Mild Free Text HPI Notes Free Text HPI Notes Pt is a 28 yo F at 13w who presents for back pain and pelvic pressure. Pt states it abruptly started and is now getting worse. Denies any vaginal bleeding, chest pain, SOB, fevers or chills. Risk-Preg Under 20 Weeks Risk Stratification Ectopic Risk factors reviewed, Risk factors N/A, No risk factors Review of Systems ROS Statements All systems rev neg except as marked. Basic Review of Systems Basic ROS ENT: No sore throat, PSYCH: NL thought content Focused Review of Systems Constitutional Denies: Chills, Fatigue, Fever. Eyes Denies: Redness bilat, Swelling bilat. Respiratory Denies: Cough, non-productive, Cough, productive, Shortness of breath, Wheezing. Cardiovascular Denies: Chest pain, Dyspnea on exertion, Syncope. GI Denies: Abdominal pain, Constipation, Diarrhea, Nausea, Vomiting. Female Reports: Pelvic pain, . Denies: Dysuria, Vaginal bleeding - abnl. Musculoskeletal Reports: Back pain. Denies: Joint swelling, Neck pain. Hematologic Denies: Bleeding, Bruising, Petechiae. Skin Denies: Rash, Swelling, Ulceration. Neurologic Denies: Headache, Lightheaded, Numbness. Past Medical History - Adult Stated Complaint JEFRY FLANK PAIN,13 WKS Allergies Coded Allergies: No Known Allergies (09/12/18) Home Medications Reported Medications PNV/FE FUM/FA ( MULTIVITAMIN) 1 TAB PO DAILY Discontinued Reported Medications PROGESTERONE,MICRONIZED (PROMETRIUM) 100 MG PO BID Review of Nursing Notes Rev avail, and agree Smoking status for patients 13 years old or older: Never Smoker Physical Exam Vital Signs Vital Signs First Documented: Result Date Time Pulse Ox 100 09/12 101 B/P 113/71 09/12 101 B/P Mean 85 09/12 101 O2 Delivery Room air 09/12 101 Temp 37.0 09/12 101 Pulse 93 09/12 101 Resp 17 09/12 101 Last Documented: Result Date Time Pulse Ox 100 09/12 0300 B/P 110/69 09/12 299 B/P Mean 82 09/12 299 O2 Delivery Room air 09/12 299 Pulse 82 09/12 299 Resp 17 09/12 299 Temp 37.0 09/12 101 Review of Vital Signs Reviewed, Vital signs normal Basic Physical Exam Basic PE HEAD: Atraumatic/NC, EYES: PERRL, conj clear, ENT: Membranes moist, NECK: Supple, RESP: No resp distress, CV: Reg rate rhythm, EXT: No gross abnormality, SKIN: No rashes, warm/dry, NEURO: alert oriented, NEURO: gross movement NL, PSYCH: NL thought content Focused PE General/Const General/Const Awake, Alert, No acute distress Ears/Nose/Throat Ears/Nose/Throat Atraumatic, Airway patent, Mucous membranes moist, Pharynx NL Resp/Chest Respiratory/Chest Atraumatic, Breath sounds NL, No respiratory distress, No wheezing Cardiovascular Cardiovascular Heart rate NL, Regular rhythm, No murmurs, Peripheral circulation NL Abdomen/GI Abdomen/GI Atraumatic, Soft, Non-tender, BS normoactive Genitourinary General Exam deferred Neurologic Neurologic Oriented X3, Speech NL, No motor deficits, No sensory deficits, CN II - XII intact, Memory NL Interpretation Diagnostics Lab Results Interpretation Results Laboratory Tests 09/12/18 0120: [Embedded Image Not Available] Laboratory Tests: 09/12 09/12 012 0115 Chemistry Sodium (135 - 145 mEq/L) 136 Potassium (3.5 - 5.0 mEq/L) 3.4 L Chloride (100 - 115 mEq/L) 103 Carbon Dioxide (22 - 31 mEq/L) 25 Anion Gap (10 - 20) 11.10 BUN (7 - 18 mg/dL) 6 L Creatinine (0.5 - 1.0 mg/dL) 0.7 Glomerular Filtr Rate (>60 ml/min) 100 Glucose (65 - 110 mg/dL) 94 Calcium (8.4 - 10.2 mg/dL) 8.4 Total Bilirubin (0.2 - 1.0 mg/dL) 0.4 AST (15 - 37 units/L) 12 L ALT (12 - 78 units/L) 11 L Total Alk Phosphatase (46 - 116 units/L) 59 Total Protein (6.3 - 8.2 gm/dL) 6.7 Albumin (3.4 - 4.8 gm/dL) 2.6 L Hematology WBC (6.6 - 12.1 K/mm3) 6.2 L RBC (3.45 - 5.01 M/mm3) 4.04 Hgb (10.7 - 13.9 g/dL) 12.4 Hct (32.1 - 42.1 %) 37.3 MCV (84.1 - 94.8 fL) 92 MCH (27 - 35 pg) 30.7 MCHC (32.2 - 34.1 gm/dL) 33.2 RDW (12.4 - 16.5 %) 13.2 Plt Count (133 - 385 K/mm3) 196 MPV (9.1 - 12.7 fl) 11.3 Neut % (Auto) (56.5 - 79.4 %) 64.5 Lymph % (Auto) (14.3 - 34.3 %) 25.7 Foster % (Auto) (5.1 - 10.4 %) 8.4 Eos % (Auto) (0.1 - 3.0 %) 0.6 Baso % (Auto) (0.1 - 1.0 %) 0.5 Neut # (Auto) (K/mm3) 4.0 Lymph # (Auto) (K/mm3) 1.6 Foster # (Auto) (K/mm3) 0.5 Eos # (Auto) (K/mm3) 0.04 Baso # (Auto) (K/mm3) 0.0 Immature Plt Fraction (0.0 - 10.8 %) 0.0 Urines Urine Color (YELLOW) YELLOW Urine Appearance (CLEAR) Slightly-Cloudy Urine pH (5 - 9) 5.0 Ur Specific Klemme (1.001 - 1.035) 1.017 Urine Protein (NEG) NEGATIVE Urine Glucose (UA) (NEG) NEGATIVE Urine Ketones (NEG) NEGATIVE Urine Blood (NEG) NEG Urine Nitrite (NEG) NEG Urine Bilirubin (NEG) NEGATIVE Urine Urobilinogen (NEG mg/dL) NEGATIVE Ur Leukocyte Esterase (NEG) NEG Urine RBC (NONE SEEN #/hpf) 0-2 Urine WBC (NONE SEEN #/hpf) 0-2 Ur Epithelial Cells (RARE - FEW #/HPF) RARE Urine Bacteria (RARE - FEW /HPF) RARE Urine Mucus (NONE SEEN) 1+ Recent Impressions: ULTRASOUND - US PREG UT TRANSVAGINAL 09/12 156 Report Impression - Status: SIGNED Entered: 09/12/2018 032 IMPRESSION: 1. Single live intrauterine gestation at 13 weeks 3 days. heart beat at 152 bpm 2. No subchorionic bleed seen. 3. Low laying placenta. 4. Right ovarian cyst, smaller as compared to the previous study. SL: RAJINDER Impression By: Alfonso Car M.D. ULTRASOUND - US PREG EVAL 1ST TRIMTR 09/12 156 Report Impression - Status: SIGNED Entered: 09/12/2018322 IMPRESSION: 1. Single live intrauterine gestation at 13 weeks 3 days. heart beat at 152 bpm 2. No subchorionic bleed seen. 3. Low laying placenta. 4. Right ovarian cyst, smaller as compared to the previous study. SL: RAJINDER Impression By: Alfonso Car M.D. Re-Evaluation MDM Free Text MDM Notes Free Text MDM Notes Labs wnl and US showing IUP no subchorionic and low lying placenta. Recommend tylneol PRN for pain and strict return precautions for worsening symptoms. ED Course Medication(s) Ordered Medication(s) Ordered: Central Nervous System Agents Sig/Alicia Start time Last Medication Dose Route Stop Time Status Admin Acetaminophen 1,000 MG X1ED STA 09/12 0124 DC 09/12 PO 09/12 012 0129 Patient Discharge Departure Vital Signs/Condition Vital Signs First Documented: Result Date Time Pulse Ox 100 09/12 0102 B/P 113/71 09/12 010 B/P Mean 85 09/12 010 O2 Delivery Room air 09/12 101 Temp 37.0 09/12 101 Pulse 93 09/12 010 Resp 17 09/12 101 Last Documented: Result Date Time Pulse Ox 100 09/12 0300 B/P 110/69 09/12 0300 B/P Mean 82 09/12 0300 O2 Delivery Room air 09/12 0300 Pulse 82 09/12 0300 Resp 17 09/12 0300 Temp 37.0 09/12 0102 All vital signs available at the time of this entry have been reviewed. Condition Stable Clinical Impression Clinical Impression Primary Impression: Back pain Secondary Impressions: Pelvic pressure in Disposition Decision Discharge )( Discharged to Home Yes )( Time 0351 )( Date 09/12/18 Discharge/Care Plan Counseled Regarding Diagnosis, Lab results, Imaging studies, Need for follow-up, When to return to ED Discharge Note I have spoken with the patient and/or caregivers. I have explained the patient's condition, diagnoses and treatment plan based on the information available to me at this time. I have answered the patient's and/or caregiver's questions and addressed any concerns. The patient and/or caregivers have as good an understanding of the patient's diagnosis, condition and treatment plan as can be expected at this point. The vital signs have been stable. The patient's condition is stable and appropriate for discharge from the emergency department. The patient will pursue further outpatient evaluation with the primary care physician or other designated or consulting physician as outlined in the discharge instructions. The patient and/or caregivers are agreeable to this plan of care and follow-up instructions have been explained in detail. The patient and/or caregivers have received these instructions in written format and have expressed an understanding of the discharge instructions. The patient and/or caregivers are aware that any significant change in condition or worsening of symptoms should prompt an immediate return to this or the closest emergency department or a call to 911. Quality Measures US in Preg w/AP/VB Trans-abd/vag US done Preg Test for Women w/Abd Pain Known to be Smoking Cessation Screened, non user at 0400 RPT #:[id number] END OF REPORT [facility] 2018-07-31 01:30:00 [facility] ([facility]) EMERGENCY PROVIDER REPORT REPORT#:[id number] REPORT STATUS: Signed DATE:07/31/18 TIME: 0130 PATIENT: TERESE STEWART UNIT #: [id number] ROOM/BED: AGE: 28 SEX: F PCP PHYS: Rome Strickland MD SERVICE AUTHOR: Marcelo Hair MD * ALL edits or amendments must be made on the electronic/computer document * HPI-General Illness Free Text HPI Notes Free Text HPI Notes 28 yrs old female first trimester c/o vaginal itching/pressure. No vaginal bleeding, discharge or fluid. General Initial Greet Date/Time 07/30/182101 Presentation Chief Complaint vaginal itching Review of Systems ROS Statements All systems rev neg except as marked. Complete sys rev neg except as marked. Past Medical History - Adult Stated Complaint BURNING WITH URINATION Allergies Coded Allergies: No Known Allergies (01/21/16) Home Medications Reported Medications PROGESTERONE,MICRONIZED (PROMETRIUM) 100 MG PO BID PNV/FE FUM/FA ( MULTIVITAMIN) 1 TAB PO DAILY Review of Nursing Notes Rev avail, and agree Smoking status for patients 13 years old or older: Never Smoker Physical Exam Vital Signs Vital Signs First Documented: Result Date Time Pulse Ox 100 07/30 2099 B/P 128/72 07/30 2099 B/P Mean 90 07/30 2099 O2 Delivery Room air 07/30 2099 Temp 37.2 07/30 2099 Pulse 99 07/30 2099 Resp 16 07/30 2099 Last Documented: Result Date Time Pulse Ox 100 07/31 134 B/P 90/57 07/31 134 B/P Mean 68 07/31 134 O2 Delivery Room air 07/31 134 Temp 36.7 07/31 134 Pulse 80 07/31 134 Resp 17 07/31 134 Review of Vital Signs Reviewed Physical Exam General/Const General/Const Awake, Alert, Well appearing MS Head Head Normocephalic Eyes Eyes PERRL Ears/Nose/Throat Ears/Nose/Throat Airway patent, Mucous membranes moist, Pharynx NL MS Neck Neck Supple, No meningismus, Full range of motion, No swelling, Non-tender, No masses Resp/Chest Respiratory/Chest Breath sounds NL, Breath sounds = bilat, No respiratory distress, No rales, No rhonchi, No wheezing Cardiovascular Cardiovascular Heart rate NL, Regular rhythm, Heart sounds NL, Cap refill not delayed, Peripheral circulation NL Abdomen/GI Abdomen/GI Soft, Non-tender, No guarding, No rebound MS Back Back Inspection NL, Painless range of motion, Non-tender, No CVA tenderness Lymphatic Lymphatic No gross adenopathy MS Upper Extrem Upper Extremity/MS Inspection NL, No swelling, Non-tender, No erythema, No deformity, Neurologic intact, Vascular intact, No clubbing/cyanosis MS Wrist/Hand Wrist/Hand Inspection NL, No swelling, No erythema, Non-tender, No deformity, Neurologic intact, Vascular intact, No clubbing/cyanosis MS Lower Extrem Lower Ext/Pelvis/MS Inspection NL, No swelling, Non-tender, No erythema, No deformity, Neurologic intact, Vascular intact, No edema MS Ankle/Foot Ankle/Foot Inspection NL, No swelling, No erythema, Non-tender, No deformity, Neurologic intact, Vascular intact, No edema Skin Skin Color NL, Warm, Dry, Turgor NL Genitourinary Text/Dict Notes vaginal itching. Vaginal Bleeding/Discharge Discharge brown. Negative: Bleeding mild, Bleeding severe, Clots present. External Genitalia Negative: Swelling present, Labial abscess R. Pelvic Exam Negative: Cervical motion tend, Cervical lesions pres, IUD present, Os is open, Vaginal lesions present. Perineum Negative: Swelling present, Tenderness present, Lesions present, Papules present, Ulcers present. Neurologic Neurologic Oriented X3, Speech NL, No motor deficits, No sensory deficits Psychiatric Psychiatric Affect NL, Mood NL, Thought content NL Interpretation Diagnostics Lab Results Interpretation Results Laboratory Tests 07/30/182126: [Embedded Image Not Available] Laboratory Tests: 07/30 Chemistry Sodium (135 - 145 mEq/L) 136 Potassium (3.5 - 5.0 mEq/L) 3.5 Chloride (100 - 115 mEq/L) 102 Carbon Dioxide (22 - 31 mEq/L) 24 Anion Gap (10 - 20) 13.40 BUN (7 - 18 mg/dL) 8 Creatinine (0.5 - 1.0 mg/dL) 0.7 Glomerular Filtr Rate (>60 ml/min) 100 Glucose (65 - 110 mg/dL) 97 Calcium (8.4 - 10.2 mg/dL) 8.4 Total Bilirubin (0.2 - 1.0 mg/dL) 0.5 AST (15 - 37 units/L) 19 ALT (12 - 78 units/L) 10 L Total Alk Phosphatase (46 - 116 units/L) 59 Total Protein (6.3 - 8.2 gm/dL) 7.3 Albumin (3.4 - 4.8 gm/dL) 3.3 L Hematology WBC (6.6 - 12.1 K/mm3) 9.4 RBC (3.45 - 5.01 M/mm3) 4.14 Hgb (10.7 - 13.9 g/dL) 12.8 Hct (32.1 - 42.1 %) 38.7 MCV (84.1 - 94.8 fL) 94 MCH (27 - 35 pg) 30.9 MCHC (32.2 - 34.1 gm/dL) 33.1 RDW (12.4 - 16.5 %) 13.7 Plt Count (133 - 385 K/mm3) 187 MPV (9.1 - 12.7 fl) 11.6 Neut % (Auto) (56.5 - 79.4 %) 65.6 Lymph % (Auto) (14.3 - 34.3 %) 27.9 Foster % (Auto) (5.1 - 10.4 %) 5.3 Eos % (Auto) (0.1 - 3.0 %) 0.7 Baso % (Auto) (0.1 - 1.0 %) 0.3 Neut # (Auto) (K/mm3) 6.1 Lymph # (Auto) (K/mm3) 2.6 Foster # (Auto) (K/mm3) 0.5 Eos # (Auto) (K/mm3) 0.07 Baso # (Auto) (K/mm3) 0.0 Immature Plt Fraction (0.0 - 10.8 %) 0.0 Toxicology Urine Opiates Screen (NEGATIVE) NEGATIVE Ur Barbiturates, Qual (NEGATIVE) NEGATIVE Ur Phencyclidine Scrn (NEGATIVE) NEGATIVE Ur Amphetamines Screen (NEGATIVE) NEGATIVE U Benzodiazepines Scrn (NEGATIVE) NEGATIVE Urine Cocaine Screen (NEGATIVE) NEGATIVE Urine Cannabinoids (NEGATIVE) NEGATIVE Urines Urine Color (YELLOW) YELLOW Urine Appearance (CLEAR) Slightly-Cloudy Urine pH (5 - 9) 6.0 Ur Specific Klemme (1.001 - 1.035) 1.011 Urine Protein (NEG) NEGATIVE Urine Glucose (UA) (NEG) NEGATIVE Urine Ketones (NEG) NEGATIVE Urine Blood (NEG) NEG Urine Nitrite (NEG) NEG Urine Bilirubin (NEG) NEGATIVE Urine Urobilinogen (NEG mg/dL) NEGATIVE Ur Leukocyte Esterase (NEG) 1+ H Urine RBC (NONE SEEN #/hpf) 3-5 H Urine WBC (NONE SEEN #/hpf) 41-50 H Ur Epithelial Cells (RARE - FEW #/HPF) RARE Urine Mucus (NONE SEEN) RARE Urine Yeast (NONE SEEN #/hpf) FEW H Urine HCG, Qual POSITIVE Microbiology: Date/Time Procedure - Status Source Growth 07/30 2104 GC DNA Probe - COMP URINE 07/30 2104 Chlamydia DNA Probe (NABILA) - COMP URINE 07/30 2104 Urine Culture - COMP URINE Recent Impressions: ULTRASOUND - US PREG UT TRANSVAGINAL 07/30 2203 Report Impression - Status: SIGNED Entered: 07/31/201831 IMPRESSION: 1. Single live intrauterine gestation at 6 weeks 5 days. heart beat at 128 bpm. 2. Small subchorionic bleed. 3. Right ovarian cyst. SL: RAJINDER Impression By: Alfonso Car M.D. ULTRASOUND - US PREG EVAL 1ST TRIMTR 07/30 2203 Report Impression - Status: SIGNED Entered: 07/31/201831 IMPRESSION: 1. Single live intrauterine gestation at 6 weeks 5 days. heart beat at 128 bpm. 2. Small subchorionic bleed. 3. Right ovarian cyst. SL: RAJINDER Impression By: Alfonso Car M.D. Lab Statement Laboratory studies reviewed and considered in the medical decision-making. Imaging Statement Radiographic studies reviewed and considered in the medical decision-making. Lab Imaging Statement Laboratory radiographic studies reviewed and considered in the medical decision-making. Point of Care Testing Pulse Oximetry Pulse Ox % 99 On: Room air Interpretation Interpreted by id, Pulse oximetry normal Time 0813 Re-Evaluation MDM Free Text MDM Notes Free Text MDM Notes 28 yrs old female first trimester c/o vaginal itching/pressure. Vaginitis/uti//subchorionic bleeding/ovarian cyst. Normal cbc, cmp, lipase OB us showed iup of 6 wks, tone of 128, subchorionic bleeding. Discussed pt with dr. Strickland, requested admission with Keysha. urine culture sent. ED Course Medication(s) Ordered Medication(s) Ordered: Anti-Infective Agents Sig/Alicia Start time Last Medication Dose Route Stop Time Status Admin Ceftriaxone Sodium 1,000 MG X1ED STA 07/30 2237 DC 07/30 Sterile Water 10 ML IV 02/12 2242 2259 Central Nervous System Agents Sig/Alicia Start time Last Medication Dose Route Stop Time Status Admin Morphine Sulfate 4 MG X1ED STA 07/30 2115 DC 07/30 IV 07/30 Electrolytic, Caloric, And Laurie Sig/Alicia Start time Last Medication Dose Route Stop Time Status Admin Sodium Chloride 1,000 ML X1ED STA 07/30 2115 DC 07/30 IV 07/30 Gastrointestinal Drugs Sig/Alicia Start time Last Medication Dose Route Stop Time Status Admin Ondansetron HCl 4 MG ONCE ONE 07/30 2129 DC 07/30 IV 07/30 Skin And Mucous Membrane Agent Sig/Alicia Start time Last Medication Dose Route Stop Time Status Admin Terconazole 1 SUPP STAT STA 07/31 0124 UNi VAGINAL 07/31 012 Miconazole Nitrate 1 MG STAT STA 07/31 0029 CAN VAGINAL 07/31 29 Consultation Consultation Referral/Consult Name Rome Strickland MD [employer] Called ANIMAL NURSE, On-call physician Requested Call Time 0142 Requested Call Date 07/31/18 Call Returned Call returned Call Returned Time 0142 Call Returned Date 07/31/18 [employer] Will see patient, Will see in office, Agrees with eval, Agrees with plan Free Text Consult Notes accepted patient to the floor. Patient Discharge Departure Vital Signs/Condition Vital Signs First Documented: Result Date Time Pulse Ox 100 07/30 2099 B/P 128/72 07/30 2099 B/P Mean 90 07/30 2099 O2 Delivery Room air 07/30 2099 Temp 37.2 07/30 2099 Pulse 99 07/30 2099 Resp 16 07/30 2099 Last Documented: Result Date Time Pulse Ox 100 07/31 134 B/P 90/57 07/31 134 B/P Mean 68 07/31 134 O2 Delivery Room air 07/31 134 Temp 36.7 07/31 134 Pulse 80 07/31 134 Resp 17 07/31 134 All vital signs available at the time of this entry have been reviewed. Condition Improved, Stable Clinical Impression Clinical Impression Primary Impression: Ovarian cyst Secondary Impressions: , Subchorionic bleed, UTI (urinary tract infection), Vaginitis, Yeast infection Time of Impression 0132 Disposition Decision Discharge )( Discharged to Home Yes )( Time 013 )( Date 07/31/18 Discharge/Care Plan Counseled Regarding Diagnosis, Lab results, Imaging studies, Need for follow-up, When to return to ED Prescriptions Terazol 7 tylenol 3 zofran amoxicillin Prescriptions Reviewed Risks, Benefits, Alternative treatment Discharge Note I have spoken with the patient and/or caregivers. I have explained the patient's condition, diagnoses and treatment plan based on the information available to me at this time. I have answered the patient's and/or caregiver's questions and addressed any concerns. The patient and/or caregivers have as good an understanding of the patient's diagnosis, condition and treatment plan as can be expected at this point. The vital signs have been stable. The patient's condition is stable and appropriate for discharge from the emergency department. The patient will pursue further outpatient evaluation with the primary care physician or other designated or consulting physician as outlined in the discharge instructions. The patient and/or caregivers are agreeable to this plan of care and follow-up instructions have been explained in detail. The patient and/or caregivers have received these instructions in written format and have expressed an understanding of the discharge instructions. The patient and/or caregivers are aware that any significant change in condition or worsening of symptoms should prompt an immediate return to this or the closest emergency department or a call to 911. at 0813 RPT #:[id number] END OF REPORT [facility]
[2024-02-21 21:17] LABS: Troponin High Sensitivity 3.6 pg/mL (<58.9)
--- NOTE | 2024-02-21 21:57 | RAD REPORT ---
EXAM DESCRIPTION: US - Extrem Venous W Compress Clarence - 02/21/2024 9:27 pm CLINICAL HISTORY: Pain. Evaluate for DVT. COMPARISON: None. TECHNIQUE: Real-time sonographic evaluation of the bilateral lower extremity deep venous systems was performed. FINDINGS: Normal compressibility, flow augmentation, phasic flow and spontaneous flow is identified in both the left and right lower extremity deep venous systems. No intraluminal filling defects seen. IMPRESSION: No DVT in either lower extremity.
--- NOTE | 2024-02-21 22:13 | RAD REPORT ---
EXAM DESCRIPTION: US - OB Limited - 02/21/2024 9:27 pm CLINICAL HISTORY: 22 weeks and 3 days COMPARISON: Transvaginal OB dated 07/23/2018 TECHNIQUE: Sonographic grayscale and color flow images of a first-trimester were obtained through transabdominal approach. FINDINGS: A single live intrauterine is identified. The fetus in variable presentation. Pl acenta has formed posteriorly. Femur length measures 40.2 millimeters, corresponding to gestational age of 23 weeks, 0 Days. heart rate: 141 BPM. JONAH: 16.9 cm, within normal limits. Cervical canal is closed. No free fluid. IMPRESSION: 1. Single live intrauterine . Normal amniotic fluid index. 2. Calculated gestational age: 23 weeks, 0 days. Estimated due date by ultrasound: 06/19/2024.
[2024-02-21 23:03] LABS: Absolute Eosinophils 0.1 K/uL (0-0.5); Absolute Lymphocytes (CBC) 2.2 K/uL (0.7-4.9); Absolute Monocytes 0.6 K/uL (0.1-1.3); Absolute Neutrophil 6.5 K/uL (1.8-8.0); Basophils % 0.4 % (0-1.3); Eosinophils % 1.1 % (0-4.4); Hematocrit 36.6 % (36.0-45.0); Hemoglobin 12.5 g/dL (12.0-15.0); MCH 32.3 pg (27.0-35.0); MPV 10.2 fL (7.6-11.3); Monocytes % 6.5 % (3.3-12.3); Nucleated Red Blood Cells % 0.2 % (0-0); Platelets 240 thou/uL (152-406); RBC Red Blood Cell Count 3.86 M/uL (3.86-4.86); Red Cell Distribution Width 13.6 % (12.1-15.2)
[2024-02-21 23:20] LABS: Specific Gravity 1.014 (1.005-1.030); Urine Bacteria <20 /HPF (<20); Urine Bilirubin NEGATIVE (Negative); Urine Blood Negative (Negative); Urine Clarity Extremely Turbid (Clear); Urine Color Light-Yellow (Yellow); Urine Culture Reflex Order NOT NEEDED; Urine Glucose NEGATIVE (Negative); Urine Ketones NEGATIVE (Negative); Urine Microscopic Reflex YN ORDER UMIC; Urine Mucus 1+ /HPF (None Seen); Urine Nitrite NEGATIVE (Negative); Urine Protein NEGATIVE (Negative); Urine RBC None Seen /HPF (None Seen); Urine Urobilinogen Normal (Normal); Urine WBC <5 /HPF (<5); Urine pH 6.5 (5.0-7.0)
[2024-02-21 23:48] LABS: Anion Gap 12.5 mEq/L (5.0-15.0); Potassium 3.5 mEq/L (3.5-5.1)
[2024-02-21 23:51] LABS: Albumin 2.6 g/dL (3.4-5.0); Albumin/Globulin Ratio 0.7 (1.1-1.8); Bilirubin Total 0.4 mg/dL (0.2-1.0); Globulin 3.9 g/dL (2.3-3.5); Protein, Total 6.5 g/dL (6.4-8.2)
--- NOTE | 2024-02-21 23:56 | ER ---
Nurse's Notes [facility] Name: Jorge Stewart Age: 33 yrs Sex: Female : 1990 Arrival Date: 02/21/2024 Time: 20:16 Bed 8 Private MD: Diagnosis: Shortness of breath;23 weeks gestation of ;Discomfort of Presentation: 02/20 20:23 Chief complaint: Patient states: shortness of breath since 1400 today. Coronavirus kj2 screen: At this time, the client does not indicate any symptoms associated with coronavirus-19. Ebola Screen: No symptoms or risks identified at this time. Initial Sepsis Screen: Does the patient meet any 2 criteria? No. Patient's initial sepsis screen is negative. Does the patient have a suspected source of infection? No. Patient's initial sepsis screen is negative. Risk Assessment: Do you want to hurt yourself or someone else? Patient reports no desire to harm self or others. Onset of symptoms was February 21, 2024. 20:23 Method Of Arrival: Ambulatory kj2 20:23 Acuity: LISA 3 kj2 Triage Assessment: 20:25 General: Appears in no apparent distress. Behavior is calm, cooperative. Pain: Denies kj2 pain. Neuro: Level of Consciousness is awake, alert, Oriented to person, place, time, situation. Cardiovascular: Patient's skin is warm and dry. Respiratory: Reports shortness of breath at rest since 1400 today Airway is patent Respiratory effort is unlabored, Onset: The symptoms/episode began/occurred today, the patient has mild shortness of breath. DAIRY HAND: 20:26 6, Full Term 3, Premature 0, 0, Living 3, unknown kj2 Historical: - Allergies: 21:36 No Known Allergies; ha1 - Home Meds: 21:36 Vitamin Oral tab 1 tab once daily [Active]; ha1 - PMHx: 21:36 GESTATIONAL DM; ha1 - Immunization history:: Adult Immunizations up to date. - Infectious Disease History:: Denies. - Family history:: not pertinent. - Social history:: Smoking status: Patient denies any tobacco usage or history of. Screenin:48 [facility] ED Fall Risk Assessment (Adult) History of falling in the last 3 months, jj7 including since admission No falls in past 3 months (0 pts) Confusion or Disorientation No (0 pts) Intoxicated or Sedated No (0 pts) Impaired Gait No (0 pts) Mobility Assist Device Used No (0 pt) Altered Elimination No (0 pt) Score/Fall Risk Level 3 or more points = High Risk Oriented to surroundings, Maintained a safe environment, Educated pt \T\ family on fall prevention, incl call for assistance when getting out of bed, Assessed \T\ reinforced patient's understanding of fall precautions. Abuse screen: Denies threats or abuse. Nutritional screening: No deficits noted. Tuberculosis screening: No symptoms or risk factors identified. Assessment: 20:48 General: Appears in no apparent distress. comfortable, Behavior is calm, cooperative, jj7 appropriate for age. Cardiovascular: Reports shortness of breath, Rhythm is. Respiratory: Airway is patent Trachea midline Respiratory effort is even, unlabored, Respiratory pattern is regular, symmetrical, Breath sounds are clear bilaterally. Vital Signs: 20:23 BP 117 / 75; Pulse 96; Resp 18; Temp 98.2; Pulse Ox 100% on R/A; Weight 78.47 kg; kj2 Height 5 ft. 5 in. ; Pain 0/10; 20:26 BP 117 / 75; Pulse 96; Resp 20; Temp 98.2; Pulse Ox 100% on R/A; Weight 78.47 kg; kj2 Height 5 ft. 5 in. ; Pain 0/10; 21:37 BP 108 / 65; Pulse 86; Resp 17 S; Pulse Ox 100% on R/A; ha1 22:30 BP 109 / 73; Pulse 86; Resp 17; Pulse Ox 100% ; jj7 23:30 BP 119 / 76; Pulse 80; Resp 19; Pulse Ox 100% ; jj7 23:57 BP 112 / 75; Pulse 82; Resp 19; Temp 97.9; Pulse Ox 100% ; jj7 20:26 Body Mass Index 28.79 (78.47 kg, 165.1 cm) kj2 20:23 Pain Scale: Adult kj2 20:26 Pain Scale: Adult kj2 Colin Coma Score: 20:43 Eye Response: spontaneous(4). Motor Response: obeys commands(6). Verbal Response: sp4 oriented(5). Total: 15. ED Course: 20:18 Patient arrived in ED. mr 20:18 Juan Miguel Canales MD is Attending Physician. sp4 20:25 Triage completed. kj2 20:27 Arm band placed on right wrist. Patient placed in an exam room. kj2 20:37 Mela Wang, RN is Primary Nurse. ha1 20:43 Inserted saline lock: 20 gauge in right antecubital area, using aseptic technique. jj7 Blood collected. Flushed with 10 mL NS. 20:47 D-Dimer Sent. jj7 20:47 Troponin High Sensitivity Sent. jj7 20:47 BNP Sent. jj7 20:48 Patient has correct armband on for positive identification. Placed in gown. Bed in low jj7 position. Call light in reach. Provided Education on: USE OF CALL ART. Warm blanket given. 21:28 Extrem Venous W Compression Clarence US In Process Unspecified. EDMS 21:28 US OB Limited In Process Unspecified. EDMS 22:52 Urinalysis w/ reflexes Sent. jj7 22:52 CBC with Diff Sent. jj7 23:58 No provider procedures requiring assistance completed. IV discontinued, intact, jj7 bleeding controlled, No redness/swelling at site. Pressure dressing applied. Administered Medications: No medications were administered Medication: 20:48 VIS not applicable for this client. jj7 Outcome: 23:56 Discharge ordered by . sp4 23:58 Discharged to home ambulatory, jj7 23:58 Condition: improved 23:58 Discharge instructions given to patient, Instructed on discharge instructions, Demonstrated understanding of instructions, 02/21 00:01 Patient left the ED. jj7 Signatures: Dispatcher [employer] EDLA BentonTerese, Reg Reg mr Mela Wang, DAMON RN ha1 Juan Jose Taylor RN RN jj7 Juan Miguel Canales MD MD sp4 Marti Mansfield, DAMON RN kj2 Corrections: (The following items were deleted from the chart) 02/20 23:03 22:52 COMPREHENSIVE METABOLIC PANEL+C.LAB.BRZ drawn and sent. jj7 EDMS
--- NOTE | 2024-02-21 23:56 | EDPHYS ---
Physician Documentation [facility] Name: Jorge Stewart Age: 33 yrs Sex: Female : 1990 Arrival Date: 02/21/2024 Time: 20:16 Bed 8 Private MD: ED Physician Juan Miguel Canales HPI: 02/20 20:19 This 33 yrs old Female presents to ER via Unassigned with complaints of 23 wks sp4 , Shortness Of Breath. 20:43 33-year-old female -0-3-3 at this time EGA 22 weeks and 3 days by sp4 ultrasound with estimated due date June 23, 2024, also with acute onset shortness of breath associated starting at 2 PM today worse with physical exertion. [facility]'s PARASITOLOGIST [facility] [place] [facility] [place] PARASITOLOGIST: 20:26 6, Full Term 3, Premature 0, 0, Living 3, unknown kj2 Historical: - Allergies: 21:36 No Known Allergies; ha1 - Home Meds: 21:36 Vitamin Oral tab 1 tab once daily [Active]; ha1 - PMHx: 21:36 GESTATIONAL DM; ha1 - Immunization history:: Adult Immunizations up to date. - Infectious Disease History:: Denies. - Family history:: not pertinent. - Social history:: Smoking status: Patient denies any tobacco usage or history of. ROS: 20:43 Constitutional: Negative for fever, chills, and weight loss, for acute onset of sp4 shortness of breath Eyes: Negative for injury, pain, redness, and discharge, 20:43 All other systems are negative, Exam: 20:43 Constitutional: This is a well developed, well nourished patient who is awake, alert, sp4 and in no acute distress. Head/Face: Normocephalic, atraumatic. Eyes: Pupils equal round and reactive to light, extra-ocular motions intact. Lids and lashes normal. Conjunctiva and sclera are not injected. Cornea within normal limits. Periorbital areas with no swelling, redness, or edema. ENT: Nares patent. No nasal discharge, no septal abnormalities noted. Tympanic membranes are normal and external auditory canals are clear. Oropharynx with no redness, swelling, or masses, exudates, or evidence of obstruction, uvula midline. Mucous membranes moist. Neck: Trachea midline, no thyromegaly or masses palpated, and no cervical lymphadenopathy. Supple, full range of motion without nuchal rigidity, or vertebral point tenderness. Chest/axilla: Normal chest wall appearance and motion. Nontender with no deformity. No lesions are appreciated. Cardiovascular: Regular rate and rhythm with a normal S1 and S2. No gallops, murmurs, or rubs. Normal PMI, no JVD. No pulse deficits. Respiratory: Lungs have equal breath sounds bilaterally, clear to auscultation and percussion. No rales, rhonchi or wheezes noted. No increased work of breathing, no retractions or nasal flaring. Abdomen/GI: Soft, with normal bowel sounds. No distension or tympany. No guarding or rebound. No evidence of tenderness throughout. Back: No spinal tenderness. No costovertebral tenderness. Skin: Warm, dry with normal turgor. Normal color with no rashes, no lesions, and no evidence of cellulitis. MS/ Extremity: Pulses equal, no cyanosis. Neurovascular intact. Full, normal range of motion. Neuro: Awake and alert, GCS 15, oriented to person, place, time, and situation. Cranial nerves II-XII grossly intact. Motor strength 5/5 in all extremities. Sensory grossly intact. 21:35 ECG was reviewed by the Attending Physician. EKG at 2104 normal sinus rhythm rate 93 sp4 Vital Signs: 20:23 BP 117 / 75; Pulse 96; Resp 18; Temp 98.2; Pulse Ox 100% on R/A; Weight 78.47 kg; kj2 Height 5 ft. 5 in. ; Pain 0/10; 20:26 BP 117 / 75; Pulse 96; Resp 20; Temp 98.2; Pulse Ox 100% on R/A; Weight 78.47 kg; kj2 Height 5 ft. 5 in. ; Pain 0/10; 21:37 BP 108 / 65; Pulse 86; Resp 17 S; Pulse Ox 100% on R/A; ha1 22:30 BP 109 / 73; Pulse 86; Resp 17; Pulse Ox 100% ; jj7 23:30 BP 119 / 76; Pulse 80; Resp 19; Pulse Ox 100% ; jj7 23:57 BP 112 / 75; Pulse 82; Resp 19; Temp 97.9; Pulse Ox 100% ; jj7 20:26 Body Mass Index 28.79 (78.47 kg, 165.1 cm) kj2 20:23 Pain Scale: Adult kj2 20:26 Pain Scale: Adult kj2 [place] Coma Score: 20:43 Eye Response: spontaneous(4). Motor Response: obeys commands(6). Verbal Response: sp4 oriented(5). Total: 15. MDM: 20:19 Patient medically screened. sp4 20:43 Differential diagnosis: Anemia Anxiety Reaction Bronchitis CHF exacerbation, pneumonia, sp4 Psychogenic. Data reviewed: vital signs. ED course: We will perform screening tests for DVT and reassess to see if patient needs CT chest with IV contrast. . 02/20 20:19 Order name: CBC with Diff; Complete Time: 23:29 sp4 02/20 20:19 Order name: Urinalysis w/ reflexes; Complete Time: 23:29 sp4 02/20 20:37 Order name: BNP; Complete Time: 23:54 sp4 02/20 20:37 Order name: Troponin High Sensitivity; Complete Time: 23:54 sp4 02/20 20:38 Order name: D-Dimer; Complete Time: 22:06 sp4 02/20 23:03 Order name: Comprehensive Metabolic Panel; Complete Time: 23:54 EDMS 02/20 20:38 Order name: Extrem Venous W Compression [place] US; Complete Time: 22:06 sp4 02/20 20:38 Order name: US OB Limited; Complete Time: 22:45 sp4 02/20 20:37 Order name: EKG; Complete Time: 20:38 sp4 02/20 20:19 Order name: IV Saline Lock; Complete Time: 20:47 sp4 02/20 20:19 Order name: Labs collected and sent; Complete Time: 20:47 sp4 02/20 20:37 Order name: EKG - Nurse/Tech; Complete Time: 21:09 sp4 EC:35 Rate is 93 beats/min. Rhythm is regular, Normal Sinus Rhythm. QRS Force is Normal. ID sp4 interval is normal. QRS interval is normal. QT interval is normal. No Q waves. T waves are Normal. No ST changes noted. Clinical impression: Normal ECG. Interpreted by me. Reviewed by me. Administered Medications: No medications were administered Disposition Summary: 02/21/24 23:56 Discharge Ordered Notes: Location: Home sp4 Problem: new sp4 Symptoms: are unchanged sp4 Condition: Stable sp4 Diagnosis - Shortness of breath sp4 - 23 weeks gestation of sp4 - Discomfort of sp4 Followup: sp4 - With: Private Physician - When: 7 - 10 days - Reason: Recheck today's complaints Discharge Instructions: - Discharge Summary Sheet sp4 - Care sp4 Forms: - Patient Portal Instructions sp4 Signatures: Dispatcher [employer] EDMela Ordaz RN RN ha1 Juan Miguel Canales MD MD sp4 Corrections: (The following items were deleted from the chart) 23:03 20:20 COMPREHENSIVE METABOLIC PANEL+C.LAB.BRZ ordered. EDMS EDMS 23:23 23:11 CBC+H.LAB.BRZ ordered. EDMS EDMS
[2024-02-22 00:12] VITALS: O2SAT 100
[2024-02-22 00:19] VITALS: BP 112/75; TEMP 97.9
--- NOTE | 2024-02-25 17:11 | EKG ---
Test Date: 2024-02-21 Test Time: 21:04:23 Computer Animator: LANIE MEASUREMENT RESULTS: Intervals: Rate: 93 UT: 126 QRSD: 80 QT: 366 QTc: 455 [place]: P: 68 UT: 126 QRS: 84 T: 36 INTERPRETIVE STATEMENTS: Normal sinus rhythm Normal ECG Compared to ECG 01/03/2016 17:53:28 No significant changes Electronically Signed On 02-25-24 17:01:56 CDT by Silviano Stockton
== END 2024-02-22 00:01 | disposition home or self-care (01) ==
LOC: ER 20:16
DX: O26.892 Other specified pregnancy related conditions, second trimester (principal); R06.02 Shortness of breath; O24.419 Gestational diabetes mellitus in pregnancy, unspecified control; Z3A.23 23 weeks gestation of pregnancy
CPT/HCPCS: 36415; 76815; 80053; 81001; 83880; 84484; 85025; 85379; 93005; 93970; 99284